=== PATIENT | male | born 1980 | race African-American/Black ===

== ENCOUNTER → 2020-05-28 12:44 | Outpatient (BNVA) | payer OTHER, SELFPAY | PROVIDERS: PCP Internal Medicine; Referring Provider Internal Medicine; Visit Provider Surgery | DX: Z76.89 Persons encountering health services in other specified circumstances (principal) ==

== ENCOUNTER → 2020-06-01 12:01 | Outpatient (BNVA) | payer OTHER, SELFPAY | PROVIDERS: PCP Internal Medicine; Referring Provider Internal Medicine; Visit Provider Physician Assistant | DX: Z76.89 Persons encountering health services in other specified circumstances (principal) ==

== ENCOUNTER 2020-06-02 14:56 | Outpatient (REF) | payer OTHER, SELFPAY ==
[2020-06-03 14:02] LABS: H Pylori Breath Test NOT DETECTED (NOT DETECTED)
== END 2020-06-02 14:57 | disposition home or self-care (01) ==
LOC: HO.LNP 14:56
PROVIDERS: Visit Provider Physician Assistant
DX: E66.01 Morbid (severe) obesity due to excess calories (principal)
CPT/HCPCS: 83013

== ENCOUNTER → 2020-06-12 08:19 | Outpatient (BNVA) | payer OTHER, SELFPAY | PROVIDERS: PCP Internal Medicine; Referring Provider Internal Medicine; Visit Provider Dietitian, Registered | DX: Z76.89 Persons encountering health services in other specified circumstances (principal) ==

== ENCOUNTER 2020-06-15 08:00 | Outpatient (REF) | payer OTHER, SELFPAY ==
--- NOTE | 2020-06-15 08:09 | US_ITS ---
EXAMINATION: US COMPLETE ABDOMEN WITH LIVER ELASTOGRAPHY CLINICAL INFORMATION: Morbid obesity due to excess calories. COMPARISON: None. TECHNIQUE: Real-time imaging of the abdominal viscera. Noninvasive ultrasound liver fibrosis assessment is performed using Kyler ElastPQ point quantification shear wave elastography (pSWE) with a 5 MHz transducer. Multiple elastography samples are obtained. FINDINGS: PANCREAS: Normal. The visualized pancreatic head and body are normal in appearance. The remainder of the pancreas is obscured from visualization by the overlying bowel gas. ABDOMINAL AORTA: The proximal, middle, and distal aortic segments are normal in caliber. INFERIOR VENA CAVA: Visualized portions are normal. LIVER: The liver demonstrates normal size and Contour with increased heterogeneous echogenicity. No focal lesion or intrahepatic biliary duct dilatation. The right lobe measures 18.7 cm in length. The left lobe measures 12.4 cm in length. Shear wave elastography provides a median stiffness of 1.38 m/s (reference: normal median stiffness is 0.81 - 1.22 m/s). The IQR/median stiffness to assess sampling precision is 0.23 (reference: optimal IQR/median stiffness is under 0.3). GALLBLADDER: Normal. The gallbladder is physiologically distended without evidence of stones, sludge, polyps, wall thickening or pericholecystic fluid. COMMON BILE DUCT: Normal in caliber measuring 0.3 cm in diameter. RIGHT KIDNEY: Normal. No hydronephrosis. No renal calculi or focal parenchymal lesions. The kidney measures 13.5 cm in maximum dimension. LEFT KIDNEY: Normal. No hydronephrosis. No renal calculi or focal parenchymal lesions. The kidney measures 12.9 cm in maximum dimension. SPLEEN: Normal. The spleen measures 9.6 cm in maximum dimension. FREE FLUID: None. US/US abdomen comp w elastography IMPRESSION: 1. Hepatic steatosis. 2. Elastography: Liver elastography measurements are consistent with a moderate risk for clinically significant liver fibrosis (METAVIR Stage F2-F3).
--- NOTE | 2020-06-15 08:39 | FL_ITS ---
EXAMINATION: XR FLUOROSCOPY UPPER GI WITH AIR CLINICAL INFORMATION: Morbid obesity due to excess calories COMPARISON: None TECHNIQUE: Fluoroscopic assessment of the upper GI tract was performed in various upright and supine/prone obliquities utilizing thin and thick high density barium contrast material and effervescent granules. FINDINGS: The esophagus was normal in course, caliber, and contour. There was normal distensibility with no fixed segment of narrowing. No focal mucosal abnormality was identified. No significant esophageal dysmotility was observed. Contrast passed freely across the gastroesophageal junction into the stomach. No significant hiatal hernia. There was normal distensibility of the stomach with no focal abnormality identified. There was prompt gastric emptying into the duodenum which demonstrated a normal appearance. No gastroesophageal reflux was observed. FLUOROSCOPY TIME: 1.5 minutes DOSE AREA PRODUCT: 44.840 Gy-cm2 (castañeda-centimeter squared) FL/FL upper GI series IMPRESSION: Normal upper GI examination.
--- NOTE | 2020-06-15 08:39 | XR_ITS ---
EXAMINATION: XR CHEST CLINICAL INFORMATION: Morbid obesity due to excess calories. COMPARISON: None TECHNIQUE: 2 views of the chest were obtained. FINDINGS: The lungs are well expanded. There is no focal consolidation, edema, or effusion. No pneumothorax. The cardiomediastinal silhouette is within normal limits. No acute osseous abnormality. XR/XR chest 2V IMPRESSION: No acute pulmonary findings.
== END 2020-06-15 08:01 | disposition home or self-care (01) ==
LOC: HO.US 08:00
PROVIDERS: PCP Internal Medicine; Visit Provider Surgery
DX: Z01.818 Encounter for other preprocedural examination (principal); E66.01 Morbid (severe) obesity due to excess calories; E66.9 Obesity, unspecified; K21.9 Gastro-esophageal reflux disease without esophagitis
CPT/HCPCS: 71046; 74240; 76705; 76981

== ENCOUNTER → 2020-06-17 08:11 | Outpatient (BNVA) | payer OTHER, SELFPAY | PROVIDERS: PCP Internal Medicine; Visit Provider Surgery | DX: Z76.89 Persons encountering health services in other specified circumstances (principal) ==

== ENCOUNTER → 2020-07-03 07:54 | Outpatient (BNVA) | payer OTHER, SELFPAY | PROVIDERS: PCP Internal Medicine; Referring Provider Internal Medicine; Visit Provider Dietitian, Registered | DX: Z76.89 Persons encountering health services in other specified circumstances (principal) ==

== ENCOUNTER → 2020-07-10 08:11 | Outpatient (BNVA) | payer OTHER, SELFPAY | PROVIDERS: PCP Internal Medicine; Referring Provider Internal Medicine; Visit Provider Surgery | DX: Z76.89 Persons encountering health services in other specified circumstances (principal) ==

== ENCOUNTER → 2020-07-13 08:36 | Outpatient (REF) | payer OTHER, SELFPAY ==
--- NOTE | 2020-07-13 08:39 | CA_ITS ---
Transthoracic Echocardiogram Patient (Last, First, Middle): Paulino Longoria Sr, Gender: Male Date of : 1980 Age: 39 Procedure Date: 07/13/2020 Procedure Type: Transthoracic Echocardiogram Location: OP Height: 180.34 cm Weight: 146.51 kg BSA: 2.59 m2 Heart Rate: bpm BP: 140 / 90 mmHg Timber Hewer: EMILIA Referring MD: David Real MD Symptoms: E66.01 - Morbid (severe) obesity due to excess calories Study Quality: Technically Difficult ECG Rhythm: Sinus Conclusions: - The left ventricular systolic function is normal. The visually estimated ejection fraction is between 55-60%. - No obvious valvular pathology seen on this study. Findings Procedure Information Contrast agent, definity, is being given per protocol without apparent complications. The patient receives contrast. Left Ventricle Normal left ventricular cavity size. There is normal left ventricular wall thickness. The left ventricular systolic function is normal. The visually estimated ejection fraction is between 55-60%. There is no evidence of regional wall motion abnormalities. Diastolic function is normal for age. Right Ventricle Normal right ventricular cavity size and systolic function. Atria The left atrium is normal in size. The right atrium is normal in size. Aortic Valve There is a normal trileaflet aortic valve. There is no aortic valve stenosis. There is no aortic valve regurgitation. Mitral Valve The mitral valve appears normal. There is no mitral valve regurgitation. There is no mitral valve stenosis. Pulmonic Valve The pulmonic valve was not well visualized. Tricuspid Valve Normal tricuspid valve structure. There is no tricuspid valve regurgitation. The pulmonary artery systolic pressure is normal. Great Vessels The aortic annulus, sinuses of valsalva, and asc aorta are normal in size. Venous The inferior vena cava is normal in size and collapses greater than 50% with inspiration. Pericardium/Pleural There is no evidence of pericardial effusion. Prior Study Comparison No prior study available for comparison. Recommendations, Care & Conclusions No obvious valvular pathology seen on this study. Measurements 2D Linear Measurements IVSd: 1.00 0.6-0.9/0.6-1.0 cm LVIDd: 5.62 3.9-5.3/4.2-5.9 cm LVIDd Index: 2.17 2.4-3.2/2.2-3.1 cm/m2 LVIDs: 3.96 2.0-3.6 cm LVPWd: 1.04 0.7-1.1 cm Ao Root: 3.70 2.1-3.5 cm LA Diam: 3.90 2.7-3.8/3.0-4.0 cm LAIDs Index: 1.51 1.5-2.3 cm/m2 LV Mass: 282.83 67-162/88-224 g LV Mass Index: 109.20 43-95/49-115 g/m2 LVOT Diam: 2.50 3.0+(-)1.3 cm 2D Systolic Function EF 4C: 57.40 >55% EF 2C: 59.00 >55% EF BiP: 58.40 >55% Mitral Valve MV Pk E: 0.81 MV PK A: 0.70 MV Decel Time: 197.00 E/A: 1.20 E'Lateral: 9.57 E'Medial: 6.64 E/E' Med: 12.20 E/E' Lat: 8.50 PHT: 58.00 MVA PHT: 3.79 Decel Hanson: 4.11 Aortic Valve AoV Pk Álvaro: 1.12 AoV Mn Álvaro: 0.72 AoV VTI: 0.22 AoV Pk Grad: 5.00 Aov Mn Grad: 2.00 JULIO CÉSAR Cont.VTI: 2.98 LVOT LVOT Pk Álvaro: 0.67 LVOT Mn Álvaro: 0.41 LVOT VTI: 0.13 LVOT Pk Grad: 2.00 LVOT Mn Grad: 1.00 LVOT Diam: 2.50 LVOT Area: 4.91 Diastolic Function MV Pk E: 0.81 MV Pk A: 0.70 E/A: 1.20 E'Medial: 6.64 E/E' Med: 12.20 E' Laterial: 9.57 E/E' Lat: 8.50 Tricuspid Valve TR Pk Álvaro: 1.68 TR Pk Grad: 11.00 RA Press: 3.00 RVSP: 14.00 Great Vessels Aorta Ao Root-2D: 3.70 2.0-3.7 cm Ao Asc: 3.50 2.1-3.4 cm Ao Arch: 2.90 Updated in Other Vendor System with Status of Final Jose Damian MD electronically signed on 07/13/2020 4:33:14 PM with status of Final
--- NOTE | 2020-07-13 08:39 | ECG_ITS ---
Test Reason : SOB Blood Pressure : / mmHG Vent. Rate : 079 BPM Atrial Rate : 079 BPM P-R Int : 150 ms QRS Dur : 082 ms QT Int : 380 ms P-R-T Axes : 024 050 -02 degrees QTc Int : 435 ms Normal sinus rhythm Normal ECG No previous ECGs available Referred By: David Real Electronically Signed By:Dayron Cook
[2020-07-13 10:24] LABS: MANUAL DIFF FLAG NO
[2020-07-13 10:45] LABS: Basophils Absolute Auto 0.1 X10*3/uL (0.0-0.2); Basophils Percent Auto 1.2 % (0-2); Eosinophils Absolute Auto 0.1 X10*3/uL (0.0-0.4); Eosinophils Percent Auto 1.6 % (0-4); Hemoglobin 12.7 g/dl (14.0-18.0); Imm Gran Abs Auto 0.03 X10*3/uL (0.00-0.03); Imm Gran Pct Auto 0.6 % (0.0-0.4); Lymphocytes Absolute Auto 1.7 X10*3/uL (1.2-4.9); Lymphocytes Percent Auto 35.3 % (20-40); Mean Corpuscular HGB Conc 29.5 g/dl (31.0-36.0); Mean Corpuscular Hemoglobin 22.8 pg (27.0-33.0); Mean Corpuscular Volume 77.3 fL (80-98); Mean Platelet Volume 11.8 fL (9.4-12.4); Monocytes Absolute Auto 0.3 X10*3/uL (0.1-1.2); Monocytes Percent Auto 6.7 % (2-11); Neutrophils Absolute Auto 2.7 X10*3/uL (2.0-8.3); Neutrophils Percent Auto 54.6 % (45-73); Platelet Count 306 X10*3/uL (160-400); Red Blood Count 5.56 X10*6/uL (4.60-5.80); Red Cell Distribution Width 13.1 % (11.0-16.0); White Blood Count 4.9 X10*3/uL (4.8-10.8)
[2020-07-13 10:48] LABS: Estimated Average Glucose 103 mg/dL; Hemoglobin A1C 112.4362 umol/L; Hemoglobin A1c % 5.2 %
[2020-07-13 11:09] LABS: Alanine Aminotransferase 26 U/L (0-40); Albumin Level 4.4 g/dL (3.5-5.0); Alkaline Phosphatase 56 U/L (39-117); Anion Gap 13 (12-20); Aspartate Amino Transferase 19 U/L (5-37); Bilirubin Total 0.6 mg/dL (0.0-1.0); Blood Urea Nitrogen 15 mg/dL (9-16); C Reactive Protein 0.63 mg/dL (< or = 0.50); Calcium 9.5 mg/dL (8.4-10.2); Carbon Dioxide 28 mmol/L (22-29); Chloride 104 mmol/L (96-108); Cholesterol 191 mg/dL; Estimated Glomerular Filt Rate > 60; Glucose Random 106 mg/dL (60-115); HDL Cholesterol 36 mg/dL; LDL Cholesterol Calculated 139 mg/dl; Potassium 4.5 mmol/l (3.3-5.1); Sodium 140 mmol/L (135-145); Total Protein 7.8 g/dL (6.5-8.0); Triglycerides 83 mg/dL
[2020-07-13 11:34] LABS: Ferritin 337 ng/mL (20-250); TSH reflex Free T4 0.85 mIU/mL (0.32-4.0)
[2020-07-13 11:47] LABS: Folate 9.1 ng/mL (> or = 4.0); Vitamin B12 375 pg/mL (200-900)
[2020-07-14 11:17] LABS: Insulin Level Total 17.7 uIU/mL
[2020-07-16 07:28] LABS: Zinc 70 mcg/dL (60-130)
[2020-07-18 02:42] LABS: Vitamin A 37 mcg/dL (38-98)
[2020-07-18 09:38] LABS: Vitamin B1 <6 nmol/L (8-30)
== END ==
LOC: HO.CARD 08:36
PROVIDERS: Visit Provider Surgery
DX: Z01.818 Encounter for other preprocedural examination (principal); E66.01 Morbid (severe) obesity due to excess calories; I10 Essential (primary) hypertension
CPT/HCPCS: 36415; 80053; 80061; 82607; 82728; 82746; 83036; 83525; 84425; 84443; 84590; 84630; 85025; 86140; 93005; 93306; Q9957

== ENCOUNTER → 2020-07-29 08:28 | Outpatient (BNVA) | payer OTHER, SELFPAY | PROVIDERS: PCP Internal Medicine; Visit Provider Surgery | DX: Z76.89 Persons encountering health services in other specified circumstances (principal) ==

== ENCOUNTER → 2020-08-19 08:09 | Outpatient (BNVA) | payer OTHER, SELFPAY | PROVIDERS: PCP Internal Medicine; Visit Provider Surgery ==

== ENCOUNTER → 2020-08-21 13:58 | Outpatient (BNVA) | payer OTHER, SELFPAY | PROVIDERS: PCP Internal Medicine; Visit Provider Physician Assistant ==

== ENCOUNTER → 2020-08-31 08:27 | Outpatient (BNVA) | payer OTHER, SELFPAY | PROVIDERS: PCP Internal Medicine; Visit Provider Surgery ==

== ENCOUNTER → 2020-09-04 14:11 | Outpatient (BNVA) | payer OTHER, SELFPAY | PROVIDERS: PCP Internal Medicine; Visit Provider Physician Assistant ==

== ENCOUNTER 2020-09-08 06:20 | Inpatient (IN) | payer OTHER, SELFPAY ==
[2020-09-02 14:02] LABS: MANUAL DIFF FLAG NO
[2020-09-02 14:15] LABS: Basophils Absolute Auto 0.1 X10*3/uL (0.0-0.2); Basophils Percent Auto 0.8 % (0-2); Eosinophils Absolute Auto 0.2 X10*3/uL (0.0-0.4); Eosinophils Percent Auto 1.8 % (0-4); Hematocrit 43.5 % (42-52); Hemoglobin 13.2 g/dl (14.0-18.0); Imm Gran Abs Auto 0.03 X10*3/uL (0.00-0.03); Imm Gran Pct Auto 0.3 % (0.0-0.4); Lymphocytes Absolute Auto 2.8 X10*3/uL (1.2-4.9); Lymphocytes Percent Auto 31.1 % (20-40); Mean Corpuscular HGB Conc 30.3 g/dl (31.0-36.0); Mean Corpuscular Volume 75.9 fL (80-98); Mean Platelet Volume 11.7 fL (9.4-12.4); Monocytes Absolute Auto 0.5 X10*3/uL (0.1-1.2); Monocytes Percent Auto 5.4 % (2-11); Neutrophils Absolute Auto 5.4 X10*3/uL (2.0-8.3); Neutrophils Percent Auto 60.6 % (45-73); Platelet Count 369 X10*3/uL (160-400); Red Blood Count 5.73 X10*6/uL (4.60-5.80); Red Cell Distribution Width 13.2 % (11.0-16.0); White Blood Count 8.9 X10*3/uL (4.8-10.8)
[2020-09-02 14:17] LABS: INTERNATIONAL NORM RATIO 1.1 (0.9-1.1); Prothrombin Time 13.5 SEC (10.8-13.0)
[2020-09-02 14:20] LABS: Partial Thromboplastin Time 36.7 SEC (24.1-38.0)
[2020-09-02 14:21] LABS: Estimated Average Glucose 91 mg/dL; Hemoglobin A1c % 4.8 %
[2020-09-02 14:47] LABS: Alanine Aminotransferase 23 U/L (0-40); Albumin Level 4.6 g/dL (3.5-5.0); Alkaline Phosphatase 61 U/L (39-117); Anion Gap 13 (12-20); Aspartate Amino Transferase 18 U/L (5-37); Bilirubin Total 0.8 mg/dL (0.0-1.0); Blood Urea Nitrogen 16 mg/dL (9-16); C Reactive Protein 0.61 mg/dL (< or = 0.50); Calcium 10.1 mg/dL (8.4-10.2); Carbon Dioxide 30 mmol/L (22-29); Chloride 101 mmol/L (96-108); Cholesterol 182 mg/dL; Estimated Glomerular Filt Rate > 60; Glucose Random 97 mg/dL (60-115); HDL Cholesterol 35 mg/dL; LDL Cholesterol Calculated 130 mg/dl; Potassium 4.4 mmol/L (3.3-5.1); Sodium 140 mmol/L (135-145); Total Protein 7.9 g/dL (6.5-8.0); Triglycerides 86 mg/dL
[2020-09-03 09:57] LABS: Insulin Level Total 12.5 uIU/mL
[2020-09-03 10:44] VITALS: BMI 42.9
--- NOTE | 2020-09-04 12:16 | P.CONAN_ITS ---
Documented by User: Susanne Valentine 09/04/20 12:19 HPI - Anesthesia Eval Consult details Narrative: 39yo M for Gastrectomy Sleeve PMFSH Past Medical History Medical History COVID-19 vaccine administered Family history of sickle cell trait Hyperlipidemia Hypertension Sleep apnea with use of continuous positive airway pressure (CPAP) Vitamin A deficiency Family History Family History Mother Hypertension Father Hypertension Brother No problems noted. Brother No problems noted. Brother No problems noted. Son No problems noted. Son No problems noted. Son No problems noted. Surgical History Surgical History Hx of wisdom tooth extraction Morbid obesity Social History Social History Are you a primary in home caregiver to a significant other at home: No Do you presently have visiting nurse or other home services: No Alcohol intake: former Smoking Status: Never smoker Use of substances other than those prescribed or required for medical reasons: Yes Substance Use Type Other:: marijuana edibles occasionally in past-not currently using Substance Use Frequency: Occasionally Have you been hit, kicked, punched, or otherwise hurt by someone within the past year? If so, by whom?: No Advance Directives Information Provided: No Recently lost weight without trying: No Meds Allergies Allergy/AdvReac Type Severity Reaction Status Date / Time No Known Allergies Allergy Verified 08/31/20 14:02 Home Medications Medication Instructions Recorded Confirmed Type amlodipine 10 mg tablet 10 mg PO DAILY 05/28/20 09/03/20 History hydrochlorothiazide 25 mg tablet 25 mg PO DAILY 05/28/20 09/03/20 History pravastatin 80 mg PO DAILY 09/03/20 09/08/20 History ondansetron HCl [Zofran] 4 mg PO DAILY PRN 09/08/20 09/08/20 History Exam Exam Date and Time: September 04, 2020 1216 Height,Weight and Vital Signs: Height 5 ft 11 in Weight 139.706 kg Pertinent Lab Results Pertinent Lab Results: Laboratory Tests 09/02/20 09/02/20 09/02/20 13:25 13:25 13:25 WBC 8.9 RBC 5.73 Hgb 13.2 L Hct 43.5 MCV 75.9 L MCH 23.0 L MCHC 30.3 L RDW 13.2 Plt Count 369 MPV 11.7 Immature Gran % (Auto) 0.3 Neut % (Auto) 60.6 Lymph % (Auto) 31.1 [place] % (Auto) 5.4 Eos % (Auto) 1.8 Baso % (Auto) 0.8 Lymph # (Auto) 2.8 [place] # (Auto) 0.5 Eos # (Auto) 0.2 Baso # (Auto) 0.1 Abs Immat Gran (auto) 0.03 Absolute Neuts (auto) 5.4 Absolute Nucleated RBC 0.000 Nucleated RBC % (auto) 0.0 PT 13.5 H INR 1.1 APTT 36.7 Sodium 140 Potassium 4.4 Chloride 101 Carbon Dioxide 30 H Anion Gap 13 BUN 16 Creatinine 1.11 Estim Creat Clear Calc TNP Estimated GFR > 60 Random Glucose 97 Estimat Average Glucose Hemoglobin A1c % Total Insulin Calcium 10.1 D Total Bilirubin 0.8 AST 18 ALT 23 Alkaline Phosphatase 61 C-Reactive Protein 0.61 H Total Protein 7.9 Albumin 4.6 Triglycerides 86 Cholesterol 182 LDL Cholesterol, Calc 130 HDL Cholesterol 35 TSH 0.70 Blood Type Antibody Screen 09/02/20 09/02/20 09/02/20 13:25 13:25 13:25 WBC RBC Hgb Hct MCV MCH MCHC RDW Plt Count MPV Immature Gran % (Auto) Neut % (Auto) Lymph % (Auto) [place] % (Auto) Eos % (Auto) Baso % (Auto) Lymph # (Auto) [place] # (Auto) Eos # (Auto) Baso # (Auto) Abs Immat Gran (auto) Absolute Neuts (auto) Absolute Nucleated RBC Nucleated RBC % (auto) PT INR APTT Sodium Potassium Chloride Carbon Dioxide Anion Gap BUN Creatinine Estim Creat Clear Calc Estimated GFR Random Glucose Estimat Average Glucose 91 Hemoglobin A1c % 4.8 Total Insulin 12.5 Calcium Total Bilirubin AST ALT Alkaline Phosphatase C-Reactive Protein Total Protein Albumin Triglycerides Cholesterol LDL Cholesterol, Calc HDL Cholesterol TSH Blood Type O Positive Antibody Screen NEGATIVE Narrative Narrative: EKG 06/2020 Normal sinus rhythm Normal ECG No previous ECGs available CXR 04/2020 No acute pulmonary findings ECHO 06/2020 Conclusions: - The left ventricular systolic function is normal. The visually estimated ejection fraction is between 55-60%. - No obvious valvular pathology seen on this study. Assessment and Plan Assessment Anesthesia Assessment: Chart Reviewed Documented by User: Jh Fagan 09/08/20 08:19 PENDING SALE TO [facility] Past Medical History Medical History COVID-19 vaccine administered Family history of sickle cell trait Hyperlipidemia Hypertension Sleep apnea with use of continuous positive airway pressure (CPAP) Vitamin A deficiency Family History Family History Mother Hypertension Father Hypertension Brother No problems noted. Brother No problems noted. Brother No problems noted. Son No problems noted. Son No problems noted. Son No problems noted. Surgical History Surgical History Hx of wisdom tooth extraction Morbid obesity Social History Social History Are you a primary in home caregiver to a significant other at home: No Do you presently have visiting nurse or other home services: No Alcohol intake: former Smoking Status: Never smoker Use of substances other than those prescribed or required for medical reasons: Yes Substance Use Type Other:: marijuana edibles occasionally in past-not currently using Substance Use Frequency: Occasionally Have you been hit, kicked, punched, or otherwise hurt by someone within the past year? If so, by whom?: No Advance Directives Information Provided: No Recently lost weight without trying: No Meds Allergies Allergy/AdvReac Type Severity Reaction Status Date / Time No Known Allergies Allergy Verified 08/31/20 14:02 Home Medications Medication Instructions Recorded Confirmed Type amlodipine 10 mg tablet 10 mg PO DAILY 05/28/20 09/03/20 History hydrochlorothiazide 25 mg tablet 25 mg PO DAILY 05/28/20 09/03/20 History pravastatin 80 mg PO DAILY 09/03/20 09/08/20 History ondansetron HCl [Zofran] 4 mg PO DAILY PRN 09/08/20 09/08/20 History Exam Airway Mallampati Class: III TM Dist: >3cm Neck ROM: Full Loose/Missing/Broken Teeth: No Heart: rrr+[id number] Lungs: cta b/l Assessment and Plan Assessment Anesthesia Assessment: Anesthesia Plan Discussed and Chart Reviewed Final Anesthetic Review NPO: Yes ASA Class: II Final Preanesthetic Review: No Changes in Pt Med Stat, Meds/Allgs Chart Reviewed, Consent Obtained/Reviewed and Anes Risks/Benef Reviewed Patient Risk: Intermediate Procedure Risk: Low Assessment/Block/Sedation in SS: Assess/Block/Sedation-SS Anesthetic Plan Anesthetic Plan: GA and Regional Block Disposition: Standard PACU
--- NOTE | 2020-09-07 19:26 | MHC.SHP ---
Pre-Procedural Eval Section A The patient is an INPATIENT: Yes The History & Physical has been completed within 30 days and I have reviewed it.: Yes Section B Chief Complaint: obesity Details of Present Illness: morbid obesity Relevant Family History (Specify if Yes): No Relevant Social History: None Present Medications: see Short Stay Collaborative assessment Medical History: No relevant PMH History of Previous Operations: No relevant previous surgery Allergies: Allergies Allergy/AdvReac Type Severity Reaction Status Date / Time No Known Allergies Allergy Verified 08/31/20 14:02 Review of Systems Sugical H&P ROS: Negative: Constitution, Cardiovascular, Respiratory, Neurological, Psychiatric, Hem-Onc, Allergic/Immunologic, Gastrointestinal, Genitourinary, Musculoskeletal, Integumentary, Endocrine and Eyes/Ears/Nose/Throat Exam Surgical H&P Exam: Normal: HEENT, Normal: Heart, Normal: Lungs, Normal: Extremities, Normal: Abdomen, Normal: Skin and Normal: Neurological Plan Diagnosis/Plan: Unchanged I have reviewed the history and physical and performed a pertinent physical examination on my patient. No changes have occurred unless specified.
[2020-09-08] VITALS (19 sets, daily range): BP systolic 132–171; BP diastolic 49–91; PULSE 76–104; RESP 13–21; TEMP 36.4–36.9; O2SAT 95–100
[2020-09-08 07:00] LABS: COVID-19 Test Negative (Negative)
--- NOTE | 2020-09-08 10:52 | P.BOP_ITS ---
Brief Operative Note Date of Service: 09/08/20 Pre-op diagnosis: Morbid obesity and comorbidities (see below) Post-op diagnosis: same (diaphragmatic hernia and adhesions) Procedure: INITIAL PATIENT BMI ON PRESENTATION AT OUR OFFICE: 48.8 kg/m2 LAST BMI BEFORE SURGERY: 42 kg/m2 COMORBIDITIES: sleep apnea, hypertension, hyperlipidemia, liver steatosis, liver fibrosis The patient participated in an intensive weekly lifestyle intervention and exercise program during which the patient has lost between the initial office visit and the last preoperative visit 42lbs, or 12% of initial actual body weight. The patient met the BMI-criteria for bariatric surgery based on the BMI on initial presentation. The patient should not be penalized for achieving such weight loss because it is not sustainable long-term without surgical intervention and it was achieved in preparation for bariatric surgery under my direction and based on my published research ([email or web address] and [email or web address]) that a 10% preoperative weight loss improves long-term weight loss after surgery and reduces perioperative complications. Insurance carriers such as [facility] have endo rsed my recommendations and have included in their policies criteria to include a 10% preoperative weight loss requirement. PROCEDURE: Esophago-gastroscopy, laparoscopic repair of incarcerated diaph ragmatic hernia, laparoscopic lysis of adhesions, laparoscopic sleeve gastrectomy and laparoscopic gastropexy INDICATIONS: This is a 39 year-old male who was electively scheduled for laparoscopic, possibly open sleeve gastrectomy. The risks and complications of the procedure were discussed with the patient in advance, particularly the possibility of ; pulmonary embolism; staple line leak; bleeding; GERD; cardiac, pulmonary, or renal complications; as well as long-term problems such as insufficient weight loss, vitamin deficiency, strictures, or ulcers. The patient understood all the risks, and was in agreement to proceed with surgery. DESCRIPTION OF PROCEDURE: After informed consent was obtained from the patient, the patient was given preoperative antibiotics, and was transferred to the operating room. After successful induction of general anesthesia, pneumatic compressive devices were placed on both lower extremities. An upper endoscopy was performed next. The oropharynx and esophagus appeared to be within normal limits. There was a diaphragmatic hernia present of moderate size that was not reported at the preoperative upper GI. The stomach was entered. Then after all fluid and air were suctioned and the stomach was fully decompressed, the scope was withdrawn and secured in the mid esophagus. The patient was then prepped and draped in the usual sterile manner, and abd ominal access was established at the right upper quadrant with the Hanny technique. A 12 mm blunt port was inserted, and the abdomen was insufflated with CO2 to a pressure of 15 mmHg. Under direct visualization, additional ports were placed, specifically two 5 mm Versi-step ports to the left upper quadrant, and a 5 mm Versi-Step port to the right upper quadrant. 1% lidocained plan was used to infiltrate all port sites as well as all fascia defects. Using the EndoClose suture passer device, we placed a #1 Polysorb tie across the falciform ligament in order to retract it up against the abdominal wall and prevent injury of the ligament with our instruments during the procedure. Following that, the patient was placed in a steep reverse Trendelenburg position. An additional 5 mm port was placed to the right flank for the Mediflex retractor that was used to retract the left lobe of the liver. The gastro-esophageal fat pad was opened with the ultrasonic device (Thunderbeat, Olympus) and the anterior esophagus and hiatus were exposed. The angle of His was opened with the ultrasonic device the fundus of the stomach from any diaphragmatic and splenic attachments. I then opened the gastrocolic ligament between the transverse colon and the greater curvature of the stomach with the ultrasonic device to enter the lesser sac and facilitate the ligation of the short gastric vessels. I started at a mid-point along the greater curvature and using the Thunderbeat, all short gastric vessels were divided all the way to the angle of His until the left jamia was completely dissected at its entirety. I then divided the gastro-colic ligament distally to a distance of about 3-4 cm proximal to the esophagus. There were extensive congenital adhesions between the pancreas and posterior gastric wall. Those were lysed completely with the ultrasonic device. Adhesiolysis took approximately 45 min to complete and prolonged the operation significantly with a total operative time of 2 hours and 40 minutes. There was an obvious significant-sized hiatal hernia. I continued dissecting along the hiatus toward the left jamia and the angle of His. I fully mobilized the fat pad that was incarcerated in the hernia. I then continued by dissecting even further into the posterior retro-esophageal space all the way to the angle of His. I continued to mobilize the esophagus into the mediastinum circumferentially. Both vagal nerves were seen and preserved. The right jamia was also dissected completely. At that point, I was able to have at least 3 to 5 cm of esophagus into the abdomen. After I completely mobilized the esophagus from both the left and right jamia and I had a good mobilization of the esophagus circumferentially, I closed the hernia defect with three interrupted #0 Surgidac sutures using the Endo Stitch device, two of which were placed posterior and one anterior to the esophagus. The stomach was then divided transversely with one Endo TIA-45 purple, three TIA-60 articulating purple loads and three TIA-60 orange loads using the AEON stapler and loads. Every effort was made that the gastric sleeve had a tubular shape and an even caliber throughout. Once the sleeve resection was completed, the staple line of the gastric sleeve was reinforced with Hemoclips. The stomach was extremely thick and large and the staple line near the pylorus was reinforced with four interrupted 3.0 Polysorb sutures. The resected stomach was retrieved without difficulty from the Hanny port. A gastropexy was then performed in order to prevent postoperative GERD and partial gastric volvulus. Several interrupted 3.0 Surgidac sutures were placed between the sleeve's staple line and the previously divided greater omentum and gastro-colic ligament using the Endo-Stitch device. An upper endoscopy was performed. There was no narrowing at the GE junction. The scope was easily advanced all the way to the pylorus which was clearly visualized. There was no narrowing anywhere and the sleeve's caliber was even throughout. The sleeve's staple line was inspected and there was no evidence of ischemia, bleeding or dehiscence. At that point the gastroscope was withdrawn from the patient?s mouth while we were decompressing the bowel and the stomach from any remaining air. I looked into the lesser sac to see how the sleeve was situating and it was situating well. There was no bleeding from the staple line, spleen, or short gastric vessels. The Mediflex retractor was removed, and the undersurface of the liver was inspected and there was no bleeding. The patient was placed in supine position. I closed the fascial defect of the 12 mm port site with a figure of eight #1 Polysorb suture. Then 100 cc 0.25 % Marcaine plain with 10 mg of Dexamethasone were used to infiltrate the fascial closure as well as all skin incisions. At this point, the abdomen was deflated, all ports were removed under direct vision, and no bleeding was noted from any of the port sites. The skin incisions were irrigated with saline and were closed with 4-0 absorbable monofilament sutures. Steri-Strips and OpSites were used to cover all incisions. The patient was extubated and was transferred in stable condition to the recovery room for further care. I was present and performed all ho parts of the procedure. Ms. Alejandre was the fitness assistant. There were no residents to assist with this case. Jeff Real MD, PhD, FACS Surgeon: David Real MD Anesthesia: GETA, local and other (TAP block) Load Blocker: Celsa Alejandre Estimated blood loss (mL): 10 IV fluids (mL): 1,600 Urine output (mL): 0 (No Garcia to record) Pathology: other (stomach) Condition: stable Disposition: PACU
--- NOTE | 2020-09-08 10:58 | PM.DS ---
DS: Providers Provider Date of Service: 09/09/20 Date of admission: 09/08/20 06:20 Primary care physician: Clemente Naidu MD DS: Medications Discharge Medications Home Medications: Home Medications Medication Instructions Recorded Confirmed amlodipine 10 mg tablet 10 mg PO DAILY 05/28/20 09/03/20 hydrochlorothiazide 25 mg tablet 25 mg PO DAILY 05/28/20 09/03/20 pravastatin 80 mg PO DAILY 09/03/20 09/08/20 ondansetron HCl [Zofran] 4 mg PO DAILY PRN 09/08/20 09/08/20 Previous Rx's Medication Instructions Recorded mecobalamin (vitamin B12) 1,000 1,000 mcg SUBLINGUAL DAILY #30 tab 07/29/20 mcg disintegrating tablet,sublingual thiamine HCl (vitamin B1) 100 mg 100 mg PO DAILY #30 tab 07/29/20 tablet vitamin A palmitate 15,000 unit 15,000 unit PO .COMPLEX #30 tab 07/29/20 tablet pantoprazole 40 mg tablet,delayed 40 mg PO DAILY #30 tab 08/31/20 release polyethylene glycol 3350 17 gram 17 g PO DAILY #14 ea 08/31/20 oral powder packet sucralfate 100 mg/mL oral 10 ml PO BID #420 ml 08/31/20 suspension DS: Summary Time Spent with Patient Time attestation: ADMITTING DIAGNOSIS: morbid obesity, GERD, hiatal hernia, hypertension, sleep apnea and hyperlipidemia DISCHARGE DIAGNOSIS: same, s/p laparoscopic sleeve gastrectomy and repair of hiatal hernia PAST SURGICAL HISTORY: none PROCEDURE: upper endoscopy, laparoscopic sleeve gastrectomy with gastropexy and repair of hiatal hernia DISCHARGE SUMMARY: History of Present Illness: The patient is a 39 year-old man with a BMI of 49 kg/m2 and associated co-morbidities as described above. The patient had extensive work-up,lost 42 lbs preoperatively and was electively scheduled for laparoscopic, possible open sleeve gastrectomy and gastropexy. Risks and complications of the surgery were discussed with the patient in advance, particularly the possibility of , pulmonary embolism, anastomotic leak, bleeding, bowel injury, GERD, cardiac, renal or pulmonary complications. The patient understood all the risks and was in agreement with the surgical plan. Hospital Course: The patient underwent an uneventful laparoscopic sleeve gastrectomy with gastropexy and repair of hiatal hernia the day of admission. Postoperatively, the patient was transferred to the surgical floor. The patient was on IV Acetaminophen and IV dilaudid for pain control. Patient was started on bariatric phase 1 diet POD #0. On postoperative day one, the patient was feeling well without nausea, vomiting, fevers, or tachycardia. The patient had some mild incisional pain. The abdomen was soft. On the morning of postoperative day one, the patient was continued on 1 ounce of water or ice every half hour. During the first day, the patient did fairly well, having some incisional pain, but able to ambulate adequately and to tolerate liquids well. Since the patient is doing well, we decided that the patient was ready to be discharged. The patient was given instructions to follow-up with me next week and to call my office for any fever over 101, persistent abdominal pain, nausea, vomiting, GERD, symptoms of DVT such as calf tenderness, or leg swelling, or pulmonary embolism such as chest pain or shortness of breath. The patient was also instructed to drink 40-60 ounces of liquids per day using the 1-ounce cups. The patient was given prescription for Tylenol for pain, Zofran prn for nausea, and pantoprazole and carafate. The patient was encouraged to ambulate and use the incentive spirometer. The patient was allowed to shower, but no baths, and encouraged to stay active at home. All of these instructions were given to the patient personally. All questions were answered and the patient understood all instructions, the instructions were also given to the patient in print. Total time spent providing and/or coordinating discharge services: Discharge coordination time: Greater than 30 minutes Physical Exam Vital Signs: Vital Signs: Last Vital Signs Temp 98 F 09/08/20 06:46 Pulse 80 09/08/20 06:46 Resp 16 09/08/20 06:46 BP 143/88 H 09/08/20 06:46 Pulse Ox 97 09/08/20 06:46 Body Mass Index 42.9 DS: Data Data Completed and Pending Pending studies at discharge: Pending at discharge 09/08/20 08:27 Surgical [PTH] Routine Labs on day of discharge: Laboratory Tests 09/02/20 09/02/20 09/02/20 13:25 13:25 13:25 WBC 8.9 RBC 5.73 Hgb 13.2 L Hct 43.5 MCV 75.9 L MCH 23.0 L MCHC 30.3 L RDW 13.2 Plt Count 369 MPV 11.7 Immature Gran % (Auto) 0.3 Neut % (Auto) 60.6 Lymph % (Auto) 31.1 [place] % (Auto) 5.4 Eos % (Auto) 1.8 Baso % (Auto) 0.8 Lymph # (Auto) 2.8 [place] # (Auto) 0.5 Eos # (Auto) 0.2 Baso # (Auto) 0.1 Abs Immat Gran (auto) 0.03 Absolute Neuts (auto) 5.4 Absolute Nucleated RBC 0.000 Nucleated RBC % (auto) 0.0 PT 13.5 H INR 1.1 APTT 36.7 Sodium 140 Potassium 4.4 Chloride 101 Carbon Dioxide 30 H Anion Gap 13 BUN 16 Creatinine 1.11 Estim Creat Clear Calc TNP Estimated GFR > 60 Random Glucose 97 Estimat Average Glucose Hemoglobin A1c % Total Insulin Calcium 10.1 D Total Bilirubin 0.8 AST 18 ALT 23 Alkaline Phosphatase 61 C-Reactive Protein 0.61 H Total Protein 7.9 Albumin 4.6 Triglycerides 86 Cholesterol 182 LDL Cholesterol, Calc 130 HDL Cholesterol 35 TSH 0.70 COVID-19 ([facility]) COVID-19 [employer] Blood Type Antibody Screen 09/02/20 09/02/20 09/02/20 13:25 13:25 13:25 WBC RBC Hgb Hct MCV MCH MCHC RDW Plt Count MPV Immature Gran % (Auto) Neut % (Auto) Lymph % (Auto) [place] % (Auto) Eos % (Auto) Baso % (Auto) Lymph # (Auto) [place] # (Auto) Eos # (Auto) Baso # (Auto) Abs Immat Gran (auto) Absolute Neuts (auto) Absolute Nucleated RBC Nucleated RBC % (auto) PT INR APTT Sodium Potassium Chloride Carbon Dioxide Anion Gap BUN Creatinine Estim Creat Clear Calc Estimated GFR Random Glucose Estimat Average Glucose 91 Hemoglobin A1c % 4.8 Total Insulin 12.5 Calcium Total Bilirubin AST ALT Alkaline Phosphatase C-Reactive Protein Total Protein Albumin Triglycerides Cholesterol LDL Cholesterol, Calc HDL Cholesterol TSH COVID-19 ([facility]) COVID-19 [employer] Blood Type O Positive Antibody Screen NEGATIVE 09/08/20 06:30 WBC RBC Hgb Hct MCV MCH MCHC RDW Plt Count MPV Immature Gran % (Auto) Neut % (Auto) Lymph % (Auto) [place] % (Auto) Eos % (Auto) Baso % (Auto) Lymph # (Auto) [place] # (Auto) Eos # (Auto) Baso # (Auto) Abs Immat Gran (auto) Absolute Neuts (auto) Absolute Nucleated RBC Nucleated RBC % (auto) PT INR APTT Sodium Potassium Chloride Carbon Dioxide Anion Gap BUN Creatinine Estim Creat Clear Calc Estimated GFR Random Glucose Estimat Average Glucose Hemoglobin A1c % Total Insulin Calcium Total Bilirubin AST ALT Alkaline Phosphatase C-Reactive Protein Total Protein Albumin Triglycerides Cholesterol LDL Cholesterol, Calc HDL Cholesterol TSH COVID-19 ([facility]) Negative COVID-19 Clin Com See Note Blood Type Antibody Screen Discharge Plan Discharge Anticipated Discharge Date/Time: 09/09/20 11:55 Patient Disposition: Home, Self-Care Referrals: Clemente Naidu MD [Primary Care Provider] - Discharge Medications: Continued pravastatin 40 mg tablet 80 mg PO DAILY RF: 0 ondansetron HCl [Zofran] 4 mg tablet 4 mg PO DAILY PRN (Reason: Nausea And Vomiting) RF: 0 pantoprazole 40 mg tablet,delayed release (DR/EC) 40 mg PO DAILY Qty: 30 RF: 2 sucralfate 100 mg/mL suspension 10 ml PO BID Qty: 420 RF: 2 hydrochlorothiazide 25 mg tablet 25 mg PO DAILY RF: 0 Hold Instructions: Dr Real will tell you when to restart this medication. amlodipine 10 mg tablet 10 mg PO DAILY RF: 0 Discontinued polyethylene glycol 3350 [Miralax] 17 gram powder in packet 17 g PO DAILY Qty: 14 RF: 0 thiamine HCl (vitamin B1) 100 mg tablet 100 mg PO DAILY Qty: 30 RF: 2 vitamin A palmitate 15,000 unit tablet 15,000 unit PO .COMPLEX Qty: 30 RF: 0 mecobalamin (vitamin B12) 1,000 mcg tablet,disintegrating 1,000 mcg sublingual DAILY Qty: 30 RF: 2 Discharge Orders: Discharge Order (Routine); Ordered 09/09/20 Ordered By: David Real Diet: other Activity on Discharge: No heavy lifting Stand Alone Forms: Patient Portal Discharge page Activity Restrictions/Additional Instructions: No tub baths, sex or returning to work until discussed at first post op appointment. No exercise, alcohol, tobacco or illegal drug use. Continue to use incentive spirometer hourly while awake. Walk in home for 5- 10 minutes every 2 hours during the first week. Continue phase 1 diet today and start phase 2 diet tomorrow morning. Follow all instructions in the bariatric handbook and call with any questions. Visit Report Forms: Patient Portal Discharge page Care Plan Goals: weight loss Health Concerns: morbid obesity Plan of Treatment: see discharge instructions Discharge Date/Time: 09/09/20 09:39
--- NOTE | 2020-09-08 11:00 | PM.PNGS ---
Subjective Subjective Date of Service: 09/09/20 Interval history: Patient has mild incisional pain. Was able to ambulate and use the incentive spirometer. Physical Exam Vital Signs: Vital Signs: Last Vital Signs Temp 98.4 F 09/08/20 10:45 Pulse 77 09/08/20 10:45 Resp 16 09/08/20 10:45 BP 144/79 H 09/08/20 10:45 Pulse Ox 99 09/08/20 10:45 Body Mass Index 42.9 GI: Inspection: Yes normal to inspection, Yes incision (dry, clean and intact) and Yes obesity Extrem: Right lower extremity: normal to inspection (no calf tenderness) Left lower extremity: normal to inspection (no calf tenderness) Progress Note: A&P Assessment and plan (1) Morbid obesity: Status: Acute (2) Sleep apnea with use of continuous positive airway pressure (CPAP): Status: Acute (3) Hypertension: Status: Acute (4) GERD (gastroesophageal reflux disease): Status: Acute (5) Hyperlipidemia: Status: Acute (6) Diaphragmatic hernia: Status: Acute (7) Congenital intra-abdominal adhesions: Status: Acute (8) Steatosis, liver: Status: Acute (9) Liver fibrosis: Status: Acute (10) S/P laparoscopic sleeve gastrectomy: Status: Acute Assessment and Plan: 39 year old Male was admitted 09/08/2020 with morbid obesity and comorbidities. Problem 1: s/p laparoscopic sleeve gastrectomy, , diaphragmatic hernia repair, gastropexy and lysis of adhesions Status: Doing well Plan: Check am labs, If OK, will continue phase 1 bariatric diet and discharge later today. (11) S/P repair of paraesophageal hernia: Status: Acute Fall Risk Details Current Medications: Current Medications Generic Name Dose Route Start Last Admin Trade Name Freq PRN Reason Stop Dose Admin Fentanyl 50 mcg 09/08/20 08:19 Fentanyl Citrate/Pf 100 Mcg/2 Ml Vial IVPUSH Q5M PRN Pain, Moderate (Pain Scale 4-6 Hydromorphone HCl 0.5 mg 09/08/20 08:19 Hydromorphone Hcl 0.5 Mg/0.5 Ml Syringe IVPUSH Q5M PRN Pain, Severe (Pain Scale 7-10) Lactated Ringer's 1,000 mls @ 100 mls/hr 09/08/20 06:30 Lr IVCONT .Q10H HONEY Promethazine HCl 12.5 mg/ 50.5 mls @ 202 mls/hr 09/08/20 08:19 Sodium Chloride IV ONCE PRN Nausea and Vomiting Ondansetron HCl 4 mg 09/08/20 08:19 Ondansetron Hcl 4 Mg/2 Ml Vial IVPUSH ONCE PRN Nausea and Vomiting Oxycodone HCl 10 mg 09/08/20 08:19 Oxycodone Hcl Immed Release 5 Mg Tablet PO ONCE PRN Pain, Mild (Pain Scale 1-3) Time Spent With Patient Time: Total time spent is greater than 50% in coordination of care (as documented) at patient's floor/unit and/or counseling patient: Time with patient: less than 15 minutes
[2020-09-08] MEDS: ondansetron HCL 4 MG/2 ML VIAL IVPUSH ×2 (11:01→20:54)
[2020-09-08] MEDS: HYDROmorphone HCl 0.5 MG/0.5 ML SYRINGE IVPUSH (11:12)
[2020-09-08 11:51] LABS: Hematocrit 43.3 % (42-52); Hemoglobin 13.2 g/dl (14.0-18.0)
[2020-09-08 12:26] LABS: Anion Gap 14 (12-20); Blood Urea Nitrogen 11 mg/dL (9-16); Carbon Dioxide 27 mmol/L (22-29); Chloride 100 mmol/L (96-108); Creatinine Clr Calc Pharmacy 110.9; Estimated Glomerular Filt Rate > 60; Glucose Random 135 mg/dL (60-115); Potassium 4.4 mmol/L (3.3-5.1); Sodium 137 mmol/L (135-145)
[2020-09-08] MEDS: amLODIPine Besylate 10 MG TABLET PO (14:05)
[2020-09-08] MEDS: Famotidine/PF 20 MG/2 ML VIAL IVPUSH ×2 (14:06→20:54)
[2020-09-08] MEDS: Lactated Ringers 1,000 ML 125 ML IVCONT ×2 (14:13→22:30)
[2020-09-08] MEDS: ceFAZolin Sodium/Dextrose,Iso 2 GM/50 ML PIGGYBACK IV (14:14)
[2020-09-08] MEDS: hydrALAZINE HCl 20 MG/ML VIAL 10 MG IVPUSH (16:08)
[2020-09-08] MEDS: 0.9 % Sodium Chloride Flush 3 ML SYRINGE IVFLUSH (20:58)
[2020-09-09 04:00] VITALS: BP 147/80; PULSE 98; RESP 18; TEMP 36.8; O2SAT 98
[2020-09-09 04:54] LABS: MANUAL DIFF FLAG NO
[2020-09-09 04:57] LABS: Basophils Percent Auto 0.1 % (0-2); Hemoglobin 11.9 g/dl (14.0-18.0); Imm Gran Abs Auto 0.03 X10*3/uL (0.00-0.03); Imm Gran Pct Auto 0.3 % (0.0-0.4); Lymphocytes Absolute Auto 1.5 X10*3/uL (1.2-4.9); Lymphocytes Percent Auto 13.2 % (20-40); Mean Corpuscular HGB Conc 31.3 g/dl (31.0-36.0); Mean Corpuscular Hemoglobin 23.4 pg (27.0-33.0); Mean Corpuscular Volume 74.8 fL (80-98); Monocytes Absolute Auto 0.5 X10*3/uL (0.1-1.2); Monocytes Percent Auto 4.6 % (2-11); Neutrophils Absolute Auto 9.5 X10*3/uL (2.0-8.3); Neutrophils Percent Auto 81.8 % (45-73); Platelet Count 303 X10*3/uL (160-400); Red Blood Count 5.08 X10*6/uL (4.60-5.80); Red Cell Distribution Width 13.1 % (11.0-16.0); White Blood Count 11.6 X10*3/uL (4.8-10.8)
[2020-09-09 05:24] LABS: Anion Gap 13 (12-20); Blood Urea Nitrogen 8 mg/dL (9-16); Calcium 8.5 mg/dL (8.4-10.2); Carbon Dioxide 25 mmol/L (22-29); Chloride 102 mmol/L (96-108); Estimated Glomerular Filt Rate > 60; Glucose Random 102 mg/dL (60-115); Potassium 4.2 mmol/L (3.3-5.1); Sodium 136 mmol/L (135-145)
[2020-09-09] MEDS: ondansetron HCL 4 MG/2 ML VIAL IVPUSH (05:40)
[2020-09-09] MEDS: Lactated Ringers 1,000 ML 125 ML IVCONT (05:40)
[2020-09-09] MEDS: 0.9 % Sodium Chloride Flush 3 ML SYRINGE IVFLUSH (05:43)
[2020-09-09 07:56] VITALS: BP 183/97; PULSE 89; RESP 17; TEMP 36.6; O2SAT 100
[2020-09-09 08:19] VITALS: O2SAT 100
--- NOTE | 2020-09-09 08:55 | MHC.CM.PN ---
dc plan home no servceis
--- NOTE | 2020-09-09 12:03 | MHC.CM.PN ---
pt иринаd home prior to being seen by ravi hernández dc with no skilled servcies orderd by
--- NOTE | 2020-09-10 06:41 | HO.POSTANES ---
Post Anesthesia Evaluation Post Anesthesia Evaluation Vital Signs: Patient seen the morning of 09/09/20 at 830am. All vital signs were stable Anesthesia: General Endotracheal-GETA Mental Status: Awake Pain Control: Satisfactory Nausea/Vomiting: None Hydration: Adequate Anesthesia-Related Issues: No Anes. Related Issues
== END 2020-09-09 09:39 | disposition home or self-care (01) | DRG 403 ==
LOC: HO.SSSA 10:58 → HO.S3 13:08
PROVIDERS: Physician Assistant; Admitting Provider Surgery; PCP Internal Medicine; Visit Provider Surgery
PROC: 0DB64Z3 Excision of Stomach, Percutaneous Endoscopic Approach, Vertical (ICD-10-PCS; CPT 43845; principal; 2020-09-08 07:30)
DX: E66.01 Morbid (severe) obesity due to excess calories (principal); K74.00 Hepatic fibrosis, unspecified; K44.0 Diaphragmatic hernia with obstruction, without gangrene; E78.5 Hyperlipidemia, unspecified; K76.0 Fatty (change of) liver, not elsewhere classified; G47.30 Sleep apnea, unspecified; K66.0 Peritoneal adhesions (postprocedural) (postinfection); I10 Essential (primary) hypertension; Z20.822 Contact with and (suspected) exposure to COVID-19; Z68.42 Body mass index [BMI] 45.0-49.9, adult; Z79.899 Other long term (current) drug therapy
CPT/HCPCS: 43775; 43281; 36415; 80048; 80053; 80061; 83036; 83525; 84443; 85014; 85018; 85025; 85610; 85730; 86140; 86850; 86900; 86901; 87635; 88307; 88342; 99024; A4649; J0131; J0330; J0690; J1100; J1170; J1200; J2250; J2370; J2405; J3010

== ENCOUNTER → 2020-09-16 07:31 | Outpatient (BNVA) | payer OTHER, SELFPAY | PROVIDERS: PCP Internal Medicine; Visit Provider Surgery ==

== ENCOUNTER → 2020-10-14 08:06 | Outpatient (BNVA) | payer OTHER, SELFPAY | PROVIDERS: PCP Internal Medicine; Visit Provider Surgery ==

== ENCOUNTER → 2020-11-13 08:18 | Outpatient (BNVA) | payer OTHER, SELFPAY | PROVIDERS: PCP Internal Medicine; Visit Provider Surgery ==

== ENCOUNTER → 2020-12-16 08:12 | Outpatient (BNVA) | payer OTHER, SELFPAY | PROVIDERS: PCP Internal Medicine; Visit Provider Surgery ==

== ENCOUNTER → 2021-02-05 07:45 | Outpatient (BNVA) | payer OTHER, SELFPAY | PROVIDERS: PCP Internal Medicine; Visit Provider Surgery ==

== ENCOUNTER 2024-06-18 13:19 | Outpatient (AMB) | payer OTHER, SELFPAY ==
--- NOTE | 2024-06-18 13:09 | A.OFFVIS_ITS ---
VS Expanded 06/18/24 13:10 Height 5 ft 10 in Weight 230 lb BMI 33.0 Intake Visit Reasons: TV PO LSG 09/08/20 Allergies No Known Allergies Allergy (Verified 09/16/20 07:47) HPI Comments Details: This?is a?43?yo male who is s/p LSG 09/08/2020. Presents for 3 year 9 months post op visit. Weight loss of about 15 lbs since last OV over 3 years ago.? No complaints of nausea, emesis, abdominal pain or reflux, or constipation. 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 nothing formal, has a bike, treadmill, weights PFSH Medical History (Updated 02/05/21 @ 11:21 by David Real MD) Liver fibrosis Steatosis, liver Family history of sickle cell trait COVID-19 vaccine administered Vitamin B1 deficiency Vitamin B12 deficiency Vitamin A deficiency Hyperlipidemia Sleep apnea with use of continuous positive airway pressure (CPAP) Hypertension Surgical History (Updated 09/16/20 @ 07:49 by Ja Roy REPLACED BY [facility]) History of sleeve gastrectomy Hx of wisdom tooth extraction Morbid obesity Family History Mother Hypertension Father Hypertension Brother No problems noted. Brother No problems noted. Brother No problems noted. Son No problems noted. Son No problems noted. Son No problems noted. Social History Are you a primary primary care sales representative to a significant other at home: No Do you presently have visiting nurse or other home services: No Alcohol intake: former Telehealth Telehealth Telehealth Platform: Telephone Location of provider rendering services: other Location of patient: address on file Patient Identification confirmed using: Name, : Yes Telehealth method: voice only Patient verbally consented to treatment: Yes Patient verbally consented to billing insurance company: Yes Patient informed of any privacy concerns related to visit: Yes Minutes spent on Phone/Video with Pt.: 14 Assessment & Plan Assessment & Plan (1) Obesity: Code(s): E66.9 - Obesity, unspecified Category: Medical (2) S/P laparoscopic sleeve gastrectomy: Code(s): Z98.84 - Bariatric surgery status Category: Surgical Plan Pt has reached a weight loss stall. Recommended resuming a high protein meal plan with primarily supplements. 2 Celebrate shakes per day of 2 scoops 4:1 each in 8oz UAM. 1 16g bar, 1 meal 8f/8f. Labs ordered. RTC 1 month for phone visit to monitor progress. I spent a total of 30 minutes reviewing/updating records, examining the patient and counseling the patient on weight management as detailed above. Orders: Orders Insulin Today E66.9 - Obesity, unspecified, Z98.84 - Bariatric surgery status Hemoglobin A1c Today E66.9 - Obesity, unspecified, Z98.84 - Bariatric surgery status Complete Blood Count Auto Diff Today E66.9 - Obesity, unspecified, Z98.84 - Bariatric surgery status Lipid Panel Today E66.9 - Obesity, unspecified, Z98.84 - Bariatric surgery status Comprehensive Met. Panel Today E66.9 - Obesity, unspecified, Z98.84 - Bariatric surgery status C Reactive Protein Today E66.9 - Obesity, unspecified, Z98.84 - Bariatric surgery status Vitamin B1 Today E66.9 - Obesity, unspecified, Z98.84 - Bariatric surgery status Ferritin Today E66.9 - Obesity, unspecified, Z98.84 - Bariatric surgery status IRON PROFILE Today E66.9 - Obesity, unspecified, Z98.84 - Bariatric surgery status Vitamin B12 and Folate Today E66.9 - Obesity, unspecified, Z98.84 - Bariatric surgery status Zinc Today E66.9 - Obesity, unspecified, Z98.84 - Bariatric surgery status Vitamin A Today E66.9 - Obesity, unspecified, Z98.84 - Bariatric surgery status TSH reflex Free T4 Today E66.9 - Obesity, unspecified, Z98.84 - Bariatric surgery status Vitamin D 25-OH Total Today E66.9 - Obesity, unspecified, Z98.84 - Bariatric surgery status
[2024-06-18 13:10] VITALS: BMI 33.0
== END 2024-06-18 13:21 | disposition home or self-care (01) ==
LOC: HO.HBS 13:19
PROVIDERS: PCP Internal Medicine; Visit Provider Physician Assistant Surgical
DX: E66.9 Obesity, unspecified (principal); Z98.84 Bariatric surgery status
CPT/HCPCS: 99214

== ENCOUNTER → 2024-06-18 13:19 | Outpatient (BNVA) | payer OTHER, SELFPAY | PROVIDERS: PCP Internal Medicine; Visit Provider Physician Assistant Surgical | DX: Z98.84 Bariatric surgery status (principal); E66.9 Obesity, unspecified ==

== ENCOUNTER 2024-08-05 14:08 | Outpatient (AMB) | payer OTHER, SELFPAY ==
--- NOTE | 2024-08-05 14:00 | A.OFFVIS_ITS ---
Intake Visit Reasons: TELEPHONE PO LSG 09/08/20 Allergies No Known Allergies Allergy (Verified 09/16/20 07:47) Medication List - Last Reconciled 08/05/24 by MOLINA Feliciano amlodipine 10 mg PO DAILY hydrochlorothiazide 25 mg PO DAILY ondansetron HCl (Zofran) 4 mg PO DAILY PRN pantoprazole 40 mg PO DAILY pravastatin 80 mg PO DAILY sucralfate 10 mL PO BID HPI Comments Details: This?is a?43?yo male who is s/p LSG 09/08/2020. Weight relatively stable since last OV (230).? No complaints of nausea, emesis, abdominal pain or reflux, or constipation. Frustrated by stall in weight. Present meal plan includes: 2 Celebrate shakes per day of 2 scoops 4:1 each in 8oz UAM. 1 16g bar, 1 meal 8f/8f- recommended at last visit tried for a week- got hungry, does feel like clothes fit better still does have protein bar for breakfast, or eggs/sausage- then doesn't eat unt il dinner sometimes tried to increase hydration, used Liquid IV thinks he gets enough protein from his current meal plan of eating regular food in small portions Exercise: active at work but nothing formal [facility] Medical History (Updated 02/05/21 @ 11:21 by David Real MD) Liver fibrosis Steatosis, liver Family history of sickle cell trait COVID-19 vaccine administered Vitamin B1 deficiency Vitamin B12 deficiency Vitamin A deficiency Hyperlipidemia Sleep apnea with use of continuous positive airway pressure (CPAP) Hypertension Surgical History (Updated 09/16/20 @ 07:49 by Ja Roy [facility]) History of sleeve gastrectomy Hx of wisdom tooth extraction Morbid obesity Family History Mother Hypertension Father Hypertension Brother No problems noted. Brother No problems noted. Brother No problems noted. Son No problems noted. Son No problems noted. Son No problems noted. Social History Are you a primary healthcare manager to a significant other at home: No Do you presently have visiting nurse or other home services: No Alcohol intake: former Telehealth Telehealth Telehealth Platform: Telephone Location of provider rendering services: other Location of patient: address on file Patient Identification confirmed using: Name, : Yes Telehealth method: voice only Patient verbally consented to treatment: Yes Patient verbally consented to billing insurance company: Yes Patient informed of any privacy concerns related to visit: Yes Minutes spent on Phone/Video with Pt.: 12 Assessment & Plan Assessment & Plan (1) Obesity: Code(s): E66.9 - Obesity, unspecified Category: Medical (2) S/P laparoscopic sleeve gastrectomy: Code(s): Z98.84 - Bariatric surgery status Category: Surgical Plan After discussion pt appears to be low on total protein intake. He often skips eating after breakfast until dinner because he doesn't feel hungry. Advised aiming for protein goal 80g/day, eat 4x per day each meal having protein rich items. Also recommended increasing cardio exercise, discussed the importance of designated exercise vs being active at work. Pt agreeable to trying suggestions. Reminded to have labs drawn. RTC 6 weeks. I spent a total of 30 minutes reviewing/updating records, examining the patient and counseling the patient on weight management as detailed above.
== END 2024-08-05 14:40 | disposition home or self-care (01) ==
LOC: HO.HBS 14:08
PROVIDERS: PCP Internal Medicine; Visit Provider Physician Assistant Surgical
DX: E66.9 Obesity, unspecified (principal); Z98.84 Bariatric surgery status
CPT/HCPCS: 98967

== ENCOUNTER → 2024-08-05 14:08 | Outpatient (BNVA) | payer OTHER, SELFPAY | PROVIDERS: PCP Internal Medicine; Visit Provider Physician Assistant Surgical ==

== ENCOUNTER 2024-09-23 13:50 | Outpatient (AMB) | payer OTHER, SELFPAY ==
--- NOTE | 2024-09-23 13:35 | A.OFFVIS_ITS ---
VS Expanded 09/23/24 13:38 Height 5 ft 10 in Weight 222 lb BMI 31.9 Intake Visit Reasons: TELEPHONE PO LSG 09/08/20 Allergies No Known Allergies Allergy (Verified 09/16/20 07:47) Medication List - Last Reconciled 09/23/24 by MOLINA Feliciano amlodipine 10 mg PO DAILY pravastatin 80 mg PO DAILY HPI Comments Details: This?is a?43?yo male who is s/p LSG 09/08/2020. Presents for 4 year postop visit. Weight loss of 8lbs since last OV 6w ago. Has been trying to make sure he is getting enough protein in. 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 GERD: never [place]:? CPAP DM:? never? HTN:? amlodipine Hyperlipidemia:? pravastatin Post op complications:? none Have you been diagnosed with reflux (GERD)? no Score 0-5: 0=no symptoms, 1=noticeable but not bothersome (slight or occasional), 2=noticeable, bothersome but not daily, 3=bothersome and daily, 4=affects daily activities, 5=incapacitating, unable to do daily activities How bad is the heartburn: 0 Heartburn when lying down: 0 Heartburn when standing up: 0 Heartburn after meals: 0 Does heartburn change your diet: 0 Does heartburn wake you up from sleep: 0 Do you have difficulty swallowin Do you have pain with swallowin If you take medication for reflux, does this affect your daily life: 0 Total score: 0 PFSH Medical History (Updated 02/05/21 @ 11:21 by David Real MD) Liver fibrosis Steatosis, liver Family history of sickle cell trait COVID-19 vaccine administered Vitamin B1 deficiency Vitamin B12 deficiency Vitamin A deficiency Hyperlipidemia Sleep apnea with use of continuous positive airway pressure (CPAP) Hypertension Surgical History (Updated 09/16/20 @ 07:49 by Ja Roy Levon) History of sleeve gastrectomy Hx of wisdom tooth extraction Morbid obesity Family History Mother Hypertension Father Hypertension Brother No problems noted. Brother No problems noted. Brother No problems noted. Son No problems noted. Son No problems noted. Son No problems noted. Social History Are you a primary transition of care specialist to a significant other at home: No Do you presently have visiting nurse or other home services: No Alcohol intake: former Telehealth Telehealth Telehealth Platform: Telephone Location of provider rendering services: other Location of patient: address on file Patient Identification confirmed using: Name, : Yes Telehealth method: voice only Patient verbally consented to treatment: Yes Patient verbally consented to billing insurance company: Yes Patient informed of any privacy concerns related to visit: Yes Minutes spent on Phone/Video with Pt.: 16 Assessment & Plan Assessment & Plan (1) Obesity: Code(s): E66.9 - Obesity, unspecified Category: Medical (2) S/P laparoscopic sleeve gastrectomy: Code(s): Z98.84 - Bariatric surgery status Category: Medical Plan Pt doing better with weight loss after increasing his daily protein intake. Continue same meal plan for now. He plans to come later this week to have labs drawn. RTC 2 months. I spent a total of 30 minutes reviewing/updating records, examining the patient and counseling the patient on weight management as detailed above.
[2024-09-23 13:38] VITALS: BMI 31.9
--- OUTSIDE RECORDS SUMMARY | 2024-09-23 15:50 | XMS_ITS | Encounter Summary ---
Author Organization [facility] Address [address] [place] [address] Care Team Providers Care Director Of Procurement Name Role Phone Clemente Naidu MD Primary Care Provider [phone] Reason for Visit * Reason Comments Hypertension Encounter Details Date Type Department Care Team (Late st Contact Info) Description 08/30/2024 3:00 PM EST Office Visit Internal Medicine - [address] [phone] Khushbu Reyes, ULISS[place] [address] [place] [address] HTN (hypertension), benign (Primary Dx) Social History Tobacco Use Types Packs/Day Years Used Date Smoking Tobacco: Never Tobacco Cessation:Counseling Given: Not Answered Alcohol Use Standard Drinks/Week Comments Yes 0 (1 standard drink = 0.6 oz pur e alcohol) Sex and Gender Information Value Date Recorded Sex Assigned at Not on file Legal Sex Male 7:17 AM EST Gender Identity Not on file Sexual Orientation Not on file documented as of this encounter Last Filed Vital Signs Vital Sign Reading Time Taken Comments Blood Pressure 134/88 08/30/2024 3:27 PM EST Pulse 101 08/30/2024 3:08 PM EST auto cuff Temperature 36.7 ??C (98.1 ??F) 08/30/2024 3:08 PM ES T Respiratory Rate - - Oxygen Saturation - - Inhaled Oxygen Concentration - - Weight 107 kg (235 lb) 08/30/2024 3:08 PM EST Height - - Body Mass Index 33.72 05/16/2024 9:08 AM EDT documented in this encounter Ordered Prescriptions Prescription Sig Dispense Quantity Refills Last Filled Start Date End Date amLODIPine (NORVASC) 10 mg tabletIndications: HTN (hypertension), benign Take 1 tablet (10 mg total) by mouth 1 (one) time each day. 30 each 5 08/30/2024 02/26/2025 documented in this encounter Progress Notes * Khushbu Tate NP - 08/30/2024 3:00 PM EST Follow up with PCP in 3 months I have increased your Amlodipine to 10 mg 1 tablet by mouth daily, because your blood pressure readings have been high in the near past. 3. Do the cmp today. * Khushbu Tate NP - 08/30/2024 3:00 PM EST CHIEF COMPLAINT: Hypertension HPI: Paulino Longoria is a 43 y.o. old male with PMH of hypertension, sleep apnea, hyperlipidemia, and insomnia. Patient presents today for high blood pressures when he goes to the weight management program. Blood pressure today was also elevated at 144/100. No complaints of dizziness or lightheadedness during today's visit, no chest pain, no SOB. ROS: See HPI for pertinent positives Constitutional: no weakness fever/ sweats, or weight change HEENT: no acute vision changes, ear pain, sore throat, nasal discharge. Respiratory: no shortness of breath, cough or wheezing Cardiovascular:no chest pain or palpitations, no orthopnea or edema GI: no nausea, vomiting or diarrhea; no rectal bleeding or dark stools MSK: no joint or muscle pain, swelling or impaired ROM Neuro: no acute headaches, dizziness, weakness. PHYSICAL EXAM: Visit Vitals BP 134/88 Pulse 101 Comment: auto cuff Temp 36.7 ??C (98.1 ??F) Wt 107 kg (235 lb) BMI 33.72 kg/m?? Smoking Status Never BSA 2.24 m?? APPEARANCE: Alert and in no acute distress HEART: RRR with normal S1 and S2, no murmurs, no gallops LUNG: Clear to auscultation bilaterally. Able to talk in full complete sentences EXTREMITIES: Extremities warm and well perfused without clubbing, cyanosis, or edema. NEURO: Alert and oriented x 3. Gait steady. PAST MEDICAL HISTORY: Patient Active Problem List Diagnosis HTN (hypertension), benign Hyperlipemia Insomnia Obstructive sleep apnea Morbid obesity with BMI of 45.0-49.9, adult ([facility]) Screening for metabolic disorder ACTIVE MEDICATIONS: Outpatient Medications Marked as Taking for the 08/30/24 encounter (Office Visit) with Khushbu Tate NP Medication Sig Dispense Refill amLODIPine (NORVASC) 10 mg tablet Take 1 tablet (10 mg total) by mouth 1 (one) time each day. 30 each 5 atorvastatin (LIPITOR) 20 mg tablet Take 1 Tablet by mouth daily. Wegovy 1.7 mg/0.75 mL injection pen Inject 1.7 mg under the skin every 7 (seven) days. [DISCONTINUED] amLODIPine (NORVASC) 5 mg tablet Take 2 tablets (10 mg total) by mouth 1 (one) time each day. ALLERGIES: Allergies Allergen Reactions Lisinopril Other COUGH IMPRESSION: 1. HTN (hypertension), benign PLAN: 1. Increase amlodipine to 10 mg 1 tablet by mouth daily. Although patient's repeated BP is within normal limits, per chart review and other blood pressures, the patient has had a few high readings which warrant today's changes. Patient continues in weight loss management successfully. Discussed red flags that would warrant further evaluation. Plan of care reviewed with patient and patient verbalized understanding and is in agreement with plan. ORDERS: Orders Placed This Encounter Procedures Comprehensive metabolic panel Medications Discontinued During This Encounter Medication Reason amLODIPine (NORVASC) 5 mg tablet Reorder None Khushbu Tate NP on 08/30/2024 documented in this encounter Plan of Treatment Upcoming Encounters Date Type Department Care Team (Late st Contact Info) Description 11/07/2024 9:00 AM EDT Office Visit [facility] Hematology Oncology [address] [place] [phone] Noelle Watson PA [address] [place] [address] 11/27/2024 8:15 AM EDT Office Visit Internal Medicine - [facility] [address] [place], [place] [phone] Clemente Naidu MD [address] [place] [address] documented as of this encounter Results * Comprehensive metabolic panel (08/30/2024 3:42 PM EST) Sodium 140 133 - 145 mmol/L LAB CHEMISTRY METHOD 08/30/2024 6:54 PM [facility] Potassium 4.1 3.5 - 5.5 mmol/L LAB CHEMISTRY METHOD 08/30/2024 6:54 PM [facility] Chloride 106 96 - 110 mmol/L LAB CHEMISTRY METHOD 08/30/2024 6:54 PM [facility] CO2 30 21 - 32 mmol/L LAB CHEMISTRY METHOD 08/30/2024 6:54 PM [facility] Anion Gap 4 3 - 11 LAB CHEMISTRY METHOD 08/30/2024 6:54 PM [facility] Glucose 84 70 - 100 mg/dL LAB CHEMISTRY METHOD 08/30/2024 6:54 PM [facility] BUN 12 5 - 25 mg/dL LAB CHEMISTRY METHOD 08/30/2024 6:54 PM [facility] Creatinine 1.18 0.70 - 1.30 mg/dL LAB CHEMISTRY METHOD 08/30/2024 6:54 PM [facility] eGFR 79 >=60 mL/min/1. 73m2 LAB CHEMISTRY METHOD 08/30/2024 6:54 PM [facility] Comment:Calculation based on the??Chronic Kidney Disease Epidemiology Collaboration (CKD-EPI) equation refit??without adjustment for race. BUN/Creatinine Ratio 10.2 LAB CHEMISTRY METHOD 08/30/2024 6:54 PM [facility] Calcium 9.7 8.5 - 10.5 mg/dL LAB CHEMISTRY METHOD 08/30/2024 6:54 PM [facility] AST (SGOT) 10 10 - 42 unit/L LAB CHEMISTRY METHOD 08/30/2024 6:54 PM [facility] ALT (SGPT) 20 10 - 60 unit/L LAB CHEMISTRY METHOD 08/30/2024 6:54 PM [facility] Alkaline Phosphatase 60 42 - 121 unit/L LAB CHEMISTRY METHOD 08/30/2024 6:54 PM [facility] Total Protein 7.5 6.0 - 8.0 g/dL LAB CHEMISTRY METHOD 08/30/2024 6:54 PM [facility] Albumin 4.3 3.2 - 5.0 g/dL LAB CHEMISTRY METHOD 08/30/2024 6:54 PM [facility] Total Bilirubin 0.7 0.0 - 1.4 mg/dL LAB CHEMISTRY METHOD 08/30/2024 6:54 PM [facility] Blood Venous blood specimen / Unknown Venipuncture / Unknown 08/30/2024 3:42 PM EST 08/30/2024 3:42 PM EST us Khushbu Tate NP LAB BLOOD ORDERABLES Final R esult [facility] [address] [place] [address], documented in this encounter Visit Diagnoses Diagnosis HTN (hypertension), benign- Primary Essential hypertension, benign documented in this encounter Discontinued Medications Medication Sig Discontinue Reason Start Date End Da te amLODIPine (NORVASC) 5 mg tablet Take 2 tablets (10 mg total) by mouth 1 (one) time each day. Reorder 04/10/2024 08/30/2024 documented as of this encounter Historical Medications * This list may reflect changes made after this encounter. Wegovy 1.7 mg/0.75 mL injection pen Inject 1.7 mg under the skin every 7 (seven) days. 08/16/2024 added in this encounter Care Teams Director Of Procurement Relationship Specialty Start Date End Date Clemente Naidu MD [address] [place] [address] PCP - General 04/15/24 documented as of this encounter
--- OUTSIDE RECORDS SUMMARY | 2024-09-23 15:50 | XMS_ITS | Encounter Summary ---
Author Organization [facility] Address [address] [place] [address] Care Team Providers Care Wheat Buyer Name Role Phone Clemente Naidu MD Primary Care Provider [phone] Encounter Details Date Type Department Care Team (Late st Contact Info) Description 08/30/2024 3:35 PM EST Lab Draw Station [address] [phone] Screening for metabolic disorder Social History Tobacco Use Types Packs/Day Years Used Date Smoking Tobacco: Never Alcohol Use Standard Drinks/Week Comments Yes 0 (1 standard drink = 0.6 oz pur e alcohol) Sex and Gender Information Value Date Recorded Sex Assigned at Not on file Legal Sex Male 7:17 AM EST Gender Identity Not on file Sexual Orientation Not on file documented as of this encounter Progress Notes * Khushbu Tate NP - 08/30/2024 3:35 PM EST My chart message sent to patient re: stable results. documented in this encounter Plan of Treatment Upcoming Encounters Date Type Department Care Team (Late Contact Info) Description 11/07/2024 9:00 AM EDT Office Visit [facility] Hematology Oncology [address] [place] [phone] Noelle Watson PA [address] [place] [address] 11/27/2024 8:15 AM EDT Office Visit Internal Medicine - [facility] [address] [place], [place] [phone] Clemente Naidu MD [address] [place] [address] documented as of this encounter Procedures Procedure Name Priority Date/Time Associated Diagnosis Comments COMPREHENSIVE METABOLIC PANEL Routine 08/30/2024 3:42 PM EST Screening for metabolic disorder documented in this encounter Results * Comprehensive metabolic panel (08/30/2024 3:42 PM EST) Sodium 140 133 - 145 mmol/L LAB CHEMISTRY METHOD 08/30/2024 6:54 PM [facility] Potassium 4.1 3.5 - 5.5 mmol/L LAB CHEMISTRY METHOD 08/30/2024 6:54 PM [facility] Chloride 106 96 - 110 mmol/L LAB CHEMISTRY METHOD 08/30/2024 6:54 PM [facility] CO2 30 21 - 32 mmol/L LAB CHEMISTRY METHOD 08/30/2024 6:54 PM [facility] Anion Gap 4 3 - 11 LAB CHEMISTRY METHOD 08/30/2024 6:54 PM [facility] Glucose 84 70 - 100 mg/dL LAB CHEMISTRY METHOD 08/30/2024 6:54 PM [facility] BUN 12 5 - 25 mg/dL LAB CHEMISTRY METHOD 08/30/2024 6:54 PM [facility] Creatinine 1.18 0.70 - 1.30 mg/dL LAB CHEMISTRY METHOD 08/30/2024 6:54 PM [facility] eGFR 79 >=60 mL/min/1. 73m2 LAB CHEMISTRY METHOD 08/30/2024 6:54 PM [facility] Comment:Calculation based on the??Chronic Kidney Disease Epidemiology Collaboration (CKD-EPI) equation refit??without adjustment for race. BUN/Creatinine Ratio 10.2 LAB CHEMISTRY METHOD 08/30/2024 6:54 PM [facility] Calcium 9.7 8.5 - 10.5 mg/dL LAB CHEMISTRY METHOD 08/30/2024 6:54 PM [facility] AST (SGOT) 10 10 - 42 unit/L LAB CHEMISTRY METHOD 08/30/2024 6:54 PM [facility] ALT (SGPT) 20 10 - 60 unit/L LAB CHEMISTRY METHOD 08/30/2024 6:54 PM [facility] Alkaline Phosphatase 60 42 - 121 unit/L LAB CHEMISTRY METHOD 08/30/2024 6:54 PM [facility] Total Protein 7.5 6.0 - 8.0 g/dL LAB CHEMISTRY METHOD 08/30/2024 6:54 PM [facility] Albumin 4.3 3.2 - 5.0 g/dL LAB CHEMISTRY METHOD 08/30/2024 6:54 PM [facility] Total Bilirubin 0.7 0.0 - 1.4 mg/dL LAB CHEMISTRY METHOD 08/30/2024 6:54 PM [facility] Blood Venous blood specimen / Unknown Venipuncture / Unknown 08/30/2024 3:42 PM EST 08/30/2024 3:42 PM EST us Khushbu Tate BIOCHEMISTRY SPECIALIST LAB BLOOD ORDERABLES Final R esult [facility] [address] [place] [address], documented in this encounter Visit Diagnoses Diagnosis Screening for metabolic disorder documented in this encounter Care Teams Wheat Buyer Relationship Specialty Start Date End Date Clemente Naidu MD [address] [place] [id number] PCP - General 04/15/24 documented as of this encounter
--- OUTSIDE RECORDS SUMMARY | 2024-09-23 15:50 | XMS_ITS ---
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 SECA done. Previous weight was 237. Today the patient weight is 231. He is complaining of back pain for 2 weeks now MEDICATIONS Medication SIG (Take, Route, Frequency, Duration) Notes Start Date End Date Status Wegovy 2.4 MG/0.75ML Inject 2.4mg Subcutaneous weekly for 30 days 0.25mg dose received in office Active Ondansetron HCl 4 MG 1 tablet Orally every 8 hours for 30 days 11/30/2023 Active amLODIPine Besylate 10 MG 1 tablet Orally Once a day for 90 days 11/30/2023 Active Atorvastatin Calcium 20 MG Oral for 30 Days Active Wegovy 1.7 MG/0.75ML inject 1.7mg Subcutaneous weekly for 30 days 08/15/2024 Active Wegovy 1 MG/0.5ML inject 1mg Subcutaneous weekly for 30 days Received previous doses at recommended intervals in office. 04/02/2024 Not-Taking VITAL SIGNS Blood pressure systolic 164 mm Hg 09/18/19 25 Blood pressure diastolic 80 mm Hg 025 Heart Rate 91 /min 09/18/2024 Height 71 in 09/18/2024 Weight 231 lbs 09/18/2024 BMI 32.21 kg/m2 09/18/2024 Oximetry 96 % 09/18/2024 Encounters Encounter Location Date Provider Diagnosis [address] [facility] [address] [place] [address] 09/18/2024 ALCIDES LING BMI 32.0-32.9,adult Z68.32 ; Essential (primary) hypertension I10 ; Obesity (BMI 30-39.9) E66.9 ; Elevated lipids E78.5 and Dietary counseling and surveillance Z71.3 ASSESSMENTS Encounter Date Diagnosis Assessment Notes Treatment Notes Treatment Clinical Notes Section Notes 09/18/2024 BMI 32.0-32.9,adult (ICD-10 - Z68.32) Paulino is a 44-year-old male with a PMH of HTN that presents for weight management follow-up. Patient establish care in November at which time his weight was 249. Reviewed [facility] holistic and medical approach to weight loss with emphasis on lifestyle modification. 09/18/2024: Weight: 231, BMI: 32.2. Patient down 6 pounds. SECA reviewed. Discussed the importance of continued prioritization of protein intake, goal 80 to 100 g/day. Additionally discussed the importance of continued physical activity as tolerated. Plan to increase dose of Wegovy 2.4 mg SC weekly and follow-up in 1 month. 08/20/2024: Weight: 237, BMI: 33. Patient up 3 pounds. SECA reviewed, reveals fat loss with maintenance of muscle mass. Patient feels clothing is fitting better, unsure as to why fat mass would be up. Discussed the importance of adequate nutrition in the setting of GLP-1 induced appetite suppression in terms of protein/calorie intake. Discussed that poor caloric intake can result in storage fat mass, patient demonstrates understanding. Plan to increase dose of Wegovy to 1.7 mg SC weekly (patient already picked up) and follow-up in 1 month. #HTN: BP elevated at 150/70. Currently taking amlodipine 5 mg once daily. Has been prescribed 10 mg dose in the past, however is not currently taking this. He is encouraged to follow-up with his primary care provider to discuss antihypertensive dosing. 07/16/2024: Weight: 234, BMI: 32.6. SECA reviewed, reveals 2 pounds of fat gain as well as 1 pound loss in the skin. Patient up half an inch in waist circumference. Patient is encouraged to continue practicing portion control and prioritizing intake of protein, vegetables, fruits, whole grains, etc. Recommending continued walking with added strength training 2-3 times weekly. Plan to increase dose of Wegovy to 1 mg SC weekly and follow-up in 1 month. 06/11/2024: Weight: 233, BMI: 32. Patient down 5 pounds with lifestyle changes alone, patient congratulated on progress.SECA reviewed reveals 3 pounds of fat loss and maintenance of muscle mass. The patient is encouraged to continue prioritizing healthy foods, and limiting unhealthy foods such as fats, carbs, and added sugars. Recommending increased water intake, goal 60 to 80 ounces/day. As the patient has been following with us x 6 months (establish care 11/30/2023) plan to resubmit Rx for Wegovy 0.5 mg SC weekly to insurance company. Reviewed expectations for PA process/insurance coverage. 04/30/2024: Weight: 238, BMI: 33.19. SECA reviewed reveals fat loss with maintenance of muscle mass. The patient is encouraged to continue with his physical activity and making conscientious diet choices. Patient's BP elevated in office today at 158/82, per patient he was recently started on a new medication. Upon questioning, he realized he has not been taking his blood pressure medication. He is encouraged to restart his blood pressure medication amlodipine and take as prescribed. Plan to continue with an office compounded semaglutide 1 mg SC weekly. Will resubmit to insurance at the end of April as at that point the patient will have been following with us for more than 6 consecutive months. 04/02/2024: Weight 242, BMI 33.7. SECA reviewed. Reviewed goals for implementing sustainable lifestyle changes. Patient is encouraged to continue with increased protein intake. Recommending he continue to prepare his own meals. Discussed goal of implementing weight training with proper safety/body mechanics twice-weekly. As it has been 3 consecutive months of commitment to lifestyle changes, Rx for Wegovy 1 mg SC weekly sent to pharmacy. Patient is educated on proper use and side effects. All questions answered to the patient's satisfaction. Patient demonstrates understanding of diagnosis and treatments discussed. Follow-up in 4 weeks, sooner should any questions/concerns arise. Case discussed with collaborating physician Derik Smith who has reviewed the assessment/plan. Chart, medications, labs, and vital signs reviewed. Dictation completed with the use of Dragon voice recognition software, prone to medical misidentifications and grammatical errors. All errors are unintentional. Although the practitioner does try to identify and correct errors, some may be present. Please do not hesitate to contact the practitioner for clarification. Total time spent was 30 minutes with >50% on coordination of care and patient education. 09/18/2024 Essential (primary) hypertension (ICD-10 - I10) Paulino is a 44-year-old male with a PMH of HTN that presents for weight management follow-up. Patient establish care in November at which time his weight was 249. Reviewed [facility] holistic and medical approach to weight loss with emphasis on lifestyle modification. 09/18/2024: Weight: 231, BMI: 32.2. Patient down 6 pounds. SECA reviewed. Discussed the importance of continued prioritization of protein intake, goal 80 to 100 g/day. Additionally discussed the importance of continued physical activity as tolerated. Plan to increase dose of Wegovy 2.4 mg SC weekly and follow-up in 1 month. 08/20/2024: Weight: 237, BMI: 33. Patient up 3 pounds. SECA reviewed, reveals fat loss with maintenance of muscle mass. Patient feels clothing is fitting better, unsure as to why fat mass would be up. Discussed the importance of adequate nutrition in the setting of GLP-1 induced appetite suppression in terms of protein/calorie intake. Discussed that poor caloric intake can result in storage fat mass, patient demonstrates understanding. Plan to increase dose of Wegovy to 1.7 mg SC weekly (patient already picked up) and follow-up in 1 month. #HTN: BP elevated at 150/70. Currently taking amlodipine 5 mg once daily. Has been prescribed 10 mg dose in the past, however is not currently taking this. He is encouraged to follow-up with his primary care provider to discuss antihypertensive dosing. 07/16/2024: Weight: 234, BMI: 32.6. SECA reviewed, reveals 2 pounds of fat gain as well as 1 pound loss in the skin. Patient up half an inch in waist circumference. Patient is encouraged to continue practicing portion control and prioritizing intake of protein, vegetables, fruits, whole grains, etc. Recommending continued walking with added strength training 2-3 times weekly. Plan to increase dose of Wegovy to 1 mg SC weekly and follow-up in 1 month. 06/11/2024: Weight: 233, BMI: 32. Patient down 5 pounds with lifestyle changes alone, patient congratulated on progress.SECA reviewed reveals 3 pounds of fat loss and maintenance of muscle mass. The patient is encouraged to continue prioritizing healthy foods, and limiting unhealthy foods such as fats, carbs, and added sugars. Recommending increased water intake, goal 60 to 80 ounces/day. As the patient has been following with us x 6 months (establish care 11/30/2023) plan to resubmit Rx for Wegovy 0.5 mg SC weekly to insurance company. Reviewed expectations for PA process/insurance coverage. 04/30/2024: Weight: 238, BMI: 33.19. SECA reviewed reveals fat loss with maintenance of muscle mass. The patient is encouraged to continue with his physical activity and making conscientious diet choices. Patient's BP elevated in office today at 158/82, per patient he was recently started on a new medication. Upon questioning, he realized he has not been taking his blood pressure medication. He is encouraged to restart his blood pressure medication amlodipine and take as prescribed. Plan to continue with an office compounded semaglutide 1 mg SC weekly. Will resubmit to insurance at the end of April as at that point the patient will have been following with us for more than 6 consecutive months. 04/02/2024: Weight 242, BMI 33.7. SECA reviewed. Reviewed goals for implementing sustainable lifestyle changes. Patient is encouraged to continue with increased protein intake. Recommending he continue to prepare his own meals. Discussed goal of implementing weight training with proper safety/body mechanics twice-weekly. As it has been 3 consecutive months of commitment to lifestyle changes, Rx for Wegovy 1 mg SC weekly sent to pharmacy. Patient is educated on proper use and side effects. All questions answered to the patient's satisfaction. Patient demonstrates understanding of diagnosis and treatments discussed. Follow-up in 4 weeks, sooner should any questions/concerns arise. Case discussed with collaborating physician Derik Smith who has reviewed the assessment/plan. Chart, medications, labs, and vital signs reviewed. Dictation completed with the use of dotloop voice recognition software, prone to medical misidentifications and grammatical errors. All errors are unintentional. Although the practitioner does try to identify and correct errors, some may be present. Please do not hesitate to contact the practitioner for clarification. Total time spent was 30 minutes with >50% on coordination of care and patient education. 09/18/2024 Obesity (BMI 30-39.9) (ICD-10 - E66.9) Paulino is a 44-year-old male with a PMH of HTN that presents for weight management follow-up. Patient establish care in November at which time his weight was 249. Reviewed [facility] holistic and medical approach to weight loss with emphasis on lifestyle modification. 09/18/2024: Weight: 231, BMI: 32.2. Patient down 6 pounds. SECA reviewed. Discussed the importance of continued prioritization of protein intake, goal 80 to 100 g/day. Additionally discussed the importance of continued physical activity as tolerated. Plan to increase dose of Wegovy 2.4 mg SC weekly and follow-up in 1 month. 08/20/2024: Weight: 237, BMI: 33. Patient up 3 pounds. SECA reviewed, reveals fat loss with maintenance of muscle mass. Patient feels clothing is fitting better, unsure as to why fat mass would be up. Discussed the importance of adequate nutrition in the setting of GLP-1 induced appetite suppression in terms of protein/calorie intake. Discussed that poor caloric intake can result in storage fat mass, patient demonstrates understanding. Plan to increase dose of Wegovy to 1.7 mg SC weekly (patient already picked up) and follow-up in 1 month. #HTN: BP elevated at 150/70. Currently taking amlodipine 5 mg once daily. Has been prescribed 10 mg dose in the past, however is not currently taking this. He is encouraged to follow-up with his primary care provider to discuss antihypertensive dosing. 07/16/2024: Weight: 234, BMI: 32.6. SECA reviewed, reveals 2 pounds of fat gain as well as 1 pound loss in the skin. Patient up half an inch in waist circumference. Patient is encouraged to continue practicing portion control and prioritizing intake of protein, vegetables, fruits, whole grains, etc. Recommending continued walking with added strength training 2-3 times weekly. Plan to increase dose of Wegovy to 1 mg SC weekly and follow-up in 1 month. 06/11/2024: Weight: 233, BMI: 32. Patient down 5 pounds with lifestyle changes alone, patient congratulated on progress.SECA reviewed reveals 3 pounds of fat loss and maintenance of muscle mass. The patient is encouraged to continue prioritizing healthy foods, and limiting unhealthy foods such as fats, carbs, and added sugars. Recommending increased water intake, goal 60 to 80 ounces/day. As the patient has been following with us x 6 months (establish care 11/30/2023) plan to resubmit Rx for Wegovy 0.5 mg SC weekly to insurance company. Reviewed expectations for PA process/insurance coverage. 04/30/2024: Weight: 238, BMI: 33.19. SECA reviewed reveals fat loss with maintenance of muscle mass. The patient is encouraged to continue with his physical activity and making conscientious diet choices. Patient's BP elevated in office today at 158/82, per patient he was recently started on a new medication. Upon questioning, he realized he has not been taking his blood pressure medication. He is encouraged to restart his blood pressure medication amlodipine and take as prescribed. Plan to continue with an office compounded semaglutide 1 mg SC weekly. Will resubmit to insurance at the end of April as at that point the patient will have been following with us for more than 6 consecutive months. 04/02/2024: Weight 242, BMI 33.7. SECA reviewed. Reviewed goals for implementing sustainable lifestyle changes. Patient is encouraged to continue with increased protein intake. Recommending he continue to prepare his own meals. Discussed goal of implementing weight training with proper safety/body mechanics twice-weekly. As it has been 3 consecutive months of commitment to lifestyle changes, Rx for Wegovy 1 mg SC weekly sent to pharmacy. Patient is educated on proper use and side effects. All questions answered to the patient's satisfaction. Patient demonstrates understanding of diagnosis and treatments discussed. Follow-up in 4 weeks, sooner should any questions/concerns arise. Case discussed with collaborating physician Derik Smith who has reviewed the assessment/plan. Chart, medications, labs, and vital signs reviewed. Dictation completed with the use of dotloop voice recognition software, prone to medical misidentifications and grammatical errors. All errors are unintentional. Although the practitioner does try to identify and correct errors, some may be present. Please do not hesitate to contact the practitioner for clarification. Total time spent was 30 minutes with >50% on coordination of care and patient education. 09/18/2024 Elevated lipids (ICD-10 - E78.5) Paulino is a 44-year-old male with a PMH of HTN that presents for weight management follow-up. Patient establish care in November at which time his weight was 249. Reviewed [facility] holistic and medical approach to weight loss with emphasis on lifestyle modification. 09/18/2024: Weight: 231, BMI: 32.2. Patient down 6 pounds. SECA reviewed. Discussed the importance of continued prioritization of protein intake, goal 80 to 100 g/day. Additionally discussed the importance of continued physical activity as tolerated. Plan to increase dose of Wegovy 2.4 mg SC weekly and follow-up in 1 month. 08/20/2024: Weight: 237, BMI: 33. Patient up 3 pounds. SECA reviewed, reveals fat loss with maintenance of muscle mass. Patient feels clothing is fitting better, unsure as to why fat mass would be up. Discussed the importance of adequate nutrition in the setting of GLP-1 induced appetite suppression in terms of protein/calorie intake. Discussed that poor caloric intake can result in storage fat mass, patient demonstrates understanding. Plan to increase dose of Wegovy to 1.7 mg SC weekly (patient already picked up) and follow-up in 1 month. #HTN: BP elevated at 150/70. Currently taking amlodipine 5 mg once daily. Has been prescribed 10 mg dose in the past, however is not currently taking this. He is encouraged to follow-up with his primary care provider to discuss antihypertensive dosing. 07/16/2024: Weight: 234, BMI: 32.6. SECA reviewed, reveals 2 pounds of fat gain as well as 1 pound loss in the skin. Patient up half an inch in waist circumference. Patient is encouraged to continue practicing portion control and prioritizing intake of protein, vegetables, fruits, whole grains, etc. Recommending continued walking with added strength training 2-3 times weekly. Plan to increase dose of Wegovy to 1 mg SC weekly and follow-up in 1 month. 06/11/2024: Weight: 233, BMI: 32. Patient down 5 pounds with lifestyle changes alone, patient congratulated on progress.SECA reviewed reveals 3 pounds of fat loss and maintenance of muscle mass. The patient is encouraged to continue prioritizing healthy foods, and limiting unhealthy foods such as fats, carbs, and added sugars. Recommending increased water intake, goal 60 to 80 ounces/day. As the patient has been following with us x 6 months (establish care 11/30/2023) plan to resubmit Rx for Wegovy 0.5 mg SC weekly to insurance company. Reviewed expectations for PA process/insurance coverage. 04/30/2024: Weight: 238, BMI: 33.19. SECA reviewed reveals fat loss with maintenance of muscle mass. The patient is encouraged to continue with his physical activity and making conscientious diet choices. Patient's BP elevated in office today at 158/82, per patient he was recently started on a new medication. Upon questioning, he realized he has not been taking his blood pressure medication. He is encouraged to restart his blood pressure medication amlodipine and take as prescribed. Plan to continue with an office compounded semaglutide 1 mg SC weekly. Will resubmit to insurance at the end of April as at that point the patient will have been following with us for more than 6 consecutive months. 04/02/2024: Weight 242, BMI 33.7. SECA reviewed. Reviewed goals for implementing sustainable lifestyle changes. Patient is encouraged to continue with increased protein intake. Recommending he continue to prepare his own meals. Discussed goal of implementing weight training with proper safety/body mechanics twice-weekly. As it has been 3 consecutive months of commitment to lifestyle changes, Rx for Wegovy 1 mg SC weekly sent to pharmacy. Patient is educated on proper use and side effects. All questions answered to the patient's satisfaction. Patient demonstrates understanding of diagnosis and treatments discussed. Follow-up in 4 weeks, sooner should any questions/concerns arise. Case discussed with collaborating physician Derik Smith who has reviewed the assessment/plan. Chart, medications, labs, and vital signs reviewed. Dictation completed with the use of dotloop voice recognition software, prone to medical misidentifications and grammatical errors. All errors are unintentional. Although the practitioner does try to identify and correct errors, some may be present. Please do not hesitate to contact the practitioner for clarification. Total time spent was 30 minutes with >50% on coordination of care and patient education. 09/18/2024 Dietary counseling and surveillance (ICD-10 - Z71.3) Paulino is a 44-year-old male with a PMH of HTN that presents for weight management follow-up. Patient establish care in November at which time his weight was 249. Reviewed [facility] holistic and medical approach to weight loss with emphasis on lifestyle modification. 09/18/2024: Weight: 231, BMI: 32.2. Patient down 6 pounds. SECA reviewed. Discussed the importance of continued prioritization of protein intake, goal 80 to 100 g/day. Additionally discussed the importance of continued physical activity as tolerated. Plan to increase dose of Wegovy 2.4 mg SC weekly and follow-up in 1 month. 08/20/2024: Weight: 237, BMI: 33. Patient up 3 pounds. SECA reviewed, reveals fat loss with maintenance of muscle mass. Patient feels clothing is fitting better, unsure as to why fat mass would be up. Discussed the importance of adequate nutrition in the setting of GLP-1 induced appetite suppression in terms of protein/calorie intake. Discussed that poor caloric intake can result in storage fat mass, patient demonstrates understanding. Plan to increase dose of Wegovy to 1.7 mg SC weekly (patient already picked up) and follow-up in 1 month. #HTN: BP elevated at 150/70. Currently taking amlodipine 5 mg once daily. Has been prescribed 10 mg dose in the past, however is not currently taking this. He is encouraged to follow-up with his primary care provider to discuss antihypertensive dosing. 07/16/2024: Weight: 234, BMI: 32.6. SECA reviewed, reveals 2 pounds of fat gain as well as 1 pound loss in the skin. Patient up half an inch in waist circumference. Patient is encouraged to continue practicing portion control and prioritizing intake of protein, vegetables, fruits, whole grains, etc. Recommending continued walking with added strength training 2-3 times weekly. Plan to increase dose of Wegovy to 1 mg SC weekly and follow-up in 1 month. 06/11/2024: Weight: 233, BMI: 32. Patient down 5 pounds with lifestyle changes alone, patient congratulated on progress.SECA reviewed reveals 3 pounds of fat loss and maintenance of muscle mass. The patient is encouraged to continue prioritizing healthy foods, and limiting unhealthy foods such as fats, carbs, and added sugars. Recommending increased water intake, goal 60 to 80 ounces/day. As the patient has been following with us x 6 months (establish care 11/30/2023) plan to resubmit Rx for Wegovy 0.5 mg SC weekly to insurance company. Reviewed expectations for PA process/insurance coverage. 04/30/2024: Weight: 238, BMI: 33.19. SECA reviewed reveals fat loss with maintenance of muscle mass. The patient is encouraged to continue with his physical activity and making conscientious diet choices. Patient's BP elevated in office today at 158/82, per patient he was recently started on a new medication. Upon questioning, he realized he has not been taking his blood pressure medication. He is encouraged to restart his blood pressure medication amlodipine and take as prescribed. Plan to continue with an office compounded semaglutide 1 mg SC weekly. Will resubmit to insurance at the end of April as at that point the patient will have been following with us for more than 6 consecutive months. 04/02/2024: Weight 242, BMI 33.7. SECA reviewed. Reviewed goals for implementing sustainable lifestyle changes. Patient is encouraged to continue with increased protein intake. Recommending he continue to prepare his own meals. Discussed goal of implementing weight training with proper safety/body mechanics twice-weekly. As it has been 3 consecutive months of commitment to lifestyle changes, Rx for Wegovy 1 mg SC weekly sent to pharmacy. Patient is educated on proper use and side effects. All questions answered to the patient's satisfaction. Patient demonstrates understanding of diagnosis and treatments discussed. Follow-up in 4 weeks, sooner should any questions/concerns arise. Case discussed with collaborating physician eDrik Smith who has reviewed the assessment/plan. Chart, medications, labs, and vital signs reviewed. Dictation completed with the use of dotloop voice recognition software, prone to medical misidentifications and grammatical errors. All errors are unintentional. Although the practitioner does try to identify and correct errors, some may be present. Please do not hesitate to contact the practitioner for clarification. Total time spent was 30 minutes with >50% on coordination of care and patient education. PLAN OF TREATMENT Medication Medication Name Sig Start Date Stop Date Notes Wegovy 2.4 MG/0.75ML Inject 2.4mg Subcutaneous weekly for 30 days 0.25mg dose received in office Next Appt Details Provider Name:ALCIDES LAFLEUR Kem, 10/22/2024 01:30:00 PM, [address] [facility] [address], [place], [address], Progress Notes * Paulino PABONDOB:1980 (44 yo M)Acc No.[id number]:09/18/2024 Patient:??Paulino PABON Provider:??ALCIDES LING PA-C :1980?Age:44 Y?Sex:Kristina le Date:09/18/2024 Address:[address] [place], [place] [id number] Subjective: * Chief Complaints: * ?1. Patient is here for weight management follow up. SECA done. Previous weight was 237. Today the patient weight is 231. He is complaining of back pain for 2 weeks now. * HPI: ?Constitutional:? Paulino is a 44-year-old male with a PMH of HTN, HLD that presents for weight management follow-up. Currently taking Wegovy 1.7mg SC weekly with compliance. Reports adequate appetite suppression. Denies side effects of nausea, vomiting, or abdominal pain. Reports constipation managed with as needed laxative. Feels water intake is consistent. Averaging 4 bottles/day. Trying to incorporate hydration packets. Averaging 2 meals/day - lunch and dinner. States he is practicing portion control and prioritizing intake of veggies and protein. Primary sources of protein include chicken, shrimp, PB, protein bars, etc. He continues to stay physically active while working with his son. Doing [employer] ball at least three times- weekly. Did recently hurt/pull muscle in his back so physical activity has been decreased over the last two weeks. * ROS:?All Other Systems:?Review of Systems (ROS)??All others negative except those mentioned in HPI.? * Medical History:??Essential (primary) hypertension, Elevated cholesterol. * Family History:??Father: ali ve.??Mother: alive.??1 brother(s) . .?? * Medications:??Taking Ondanse anthony HCl 4 MG Tablet 1 tablet Orally every 8 hours , Taking amLODIPine Besylate 10 MG Tablet 1 tablet Orally Once a day , Taking Atorvastatin Calcium 20 MG Tablet Oral , Taking Wegovy 1.7 MG/0.75ML Solution Auto-injector inject 1.7mg Subcutaneous weekly , Not-Taking Wegovy 1 MG/0.5ML Solution Auto-injector Inject 1mg Subcutaneous weekly , Notes to Pharmacist: 0.25mg dose received in office, Not-Taking Wegovy 1 MG/0.5ML Solution Auto-injector inject 1mg Subcutaneous weekly , Notes to Pharmacist: Received previous doses at recommended intervals in office., Medication List reviewed and reconciled with the patient * Allergies:??N.K.D.A. Objective: * Vitals:??HR:91/min, BP:164/8 0mm Hg, Wt:231lbs, BMI:32.21Index, Ht: 71 in, Oxygen sat %:96%. * Physical Examination:?General: Age appropriate, well-appearing 44-year-old male in no acute distress, speaking in full sentences without respiratory compromise. Well groomed, well developed. Alert, interactive. ?Skin: Warm, dry and intact. No lesions/rashes/erythema. ?HEENT: Normocephalic/atraumatic. ?CV: RRR. ?Lungs: Clear to auscultation bilaterally. ?Neuro: CN II-XII grossly intact. Steady gait with non-assisted ambulation observed. ?Psych: Stable mood and affect. Assessment: * Assessment: 1.??Obesity (BMI 30-39.9) - E66.9 (Primary)??2.??BMI 32.0-32.9,adult - Z68.32??3.??Essential (primary) hypertension - I10??4.??Elevated lipids - E78.5?? Paulino is a 44-year-old male with a PMH of HTN that presents for weight management follow-up. Patient establish care in November at which time his weight was 249. Reviewed [facility] holistic and medical approach to weight loss with emphasis on lifestyle modification. 09/18/2024: Weight: 231, BMI: 32.2. Patient down 6 pounds. SECA reviewed. Discussed the importance of continued prioritization of protein intake, goal 80 to 100 g/day. Additionally discussed the importance of continued physical activity as tolerated. Plan to increase dose of Wegovy 2.4 mg SC weekly and follow-up in 1 month. 08/20/2024: Weight: 237, BMI: 33. Patient up 3 pounds. SECA reviewed, reveals fat loss with maintenance of muscle mass. Patient feels clothing is fitting better, unsure as to why fat mass would be up. Discussed the importance of adequate nutrition in the setting of GLP-1 induced appetite suppression in terms of protein/calorie intake. Discussed that poor caloric intake can result in storage fat mass, patient demonstrates understanding. Plan to increase dose of Wegovy to 1.7 mg SC weekly (patient already picked up) and follow-up in 1 month. #HTN: BP elevated at 150/70. Currently taking amlodipine 5 mg once daily. Has been prescribed 10 mg dose in the past, however is not currently taking this. He is encouraged to follow-up with his primary care provider to discuss antihypertensive dosing. 07/16/2024: Weight: 234, BMI: 32.6. SECA reviewed, reveals 2 pounds of fat gain as well as 1 pound loss in the skin. Patient up half an inch in waist circumference. Patient is encouraged to continue practicing portion control and prioritizing intake of protein, vegetables, fruits, whole grains, etc. Recommending continued walking with added strength training 2-3 times weekly. Plan to increase dose of Wegovy to 1 mg SC weekly and follow-up in 1 month. 06/11/2024: Weight: 233, BMI: 32. Patient down 5 pounds with lifestyle changes alone, patient congratulated on progress.SECA reviewed reveals 3 pounds of fat loss and maintenance of muscle mass. The patient is encouraged to continue prioritizing healthy foods, and limiting unhealthy foods such as fats, carbs, and added sugars. Recommending increased water intake, goal 60 to 80 ounces/day. As the patient has been following with us x 6 months (establish care 11/30/2023) plan to resubmit Rx for Wegovy 0.5 mg SC weekly to insurance company. Reviewed expectations for PA process/insurance coverage. 04/30/2024: Weight: 238, BMI: 33.19. SECA reviewed reveals fat loss with maintenance of muscle mass. The patient is encouraged to continue with his physical activity and making conscientious diet choices. Patient's BP elevated in office today at 158/82, per patient he was recently started on a new medication. Upon questioning, he realized he has not been taking his blood pressure medication. He is encouraged to restart his blood pressure medication amlodipine and take as prescribed. Plan to continue with an office compounded semaglutide 1 mg SC weekly. Will resubmit to insurance at the end of April as at that point the patient will have been following with us for more than 6 consecutive months. 04/02/2024: Weight 242, BMI 33.7. SECA reviewed. Reviewed goals for implementing sustainable lifestyle changes. Patient is encouraged to continue with increased protein intake. Recommending he continue to prepare his own meals. Discussed goal of implementing weight training with proper safety/body mechanics twice-weekly. As it has been 3 consecutive months of commitment to lifestyle changes, Rx for Wegovy 1 mg SC weekly sent to pharmacy. Patient is educated on proper use and side effects. All questions answered to the patient's satisfaction. Patient demonstrates understanding of diagnosis and treatments discussed. Follow-up in 4 weeks, sooner should any questions/concerns arise. Case discussed with collaborating physician Derik Smith who has reviewed the assessment/plan. Chart, medications, labs, and vital signs reviewed. Dictation completed with the use of dotloop voice recognition software, prone to medical misidentifications and grammatical errors. All errors are unintentional. Although the practitioner does try to identify and correct errors, some may be present. Please do not hesitate to contact the practitioner for clarification. Total time spent was 30 minutes with >50% on coordination of care and patient education. Plan: * Treatment: * Procedure Codes:??31714 P/M ASSOCIATE PROGRAM MANAGER, INDIV 15 MIN * Images: Billing Information: * Visit Code:?? 12737 Office Visit, Est Pt., Level 4. Modifiers: 25, SA * Procedure Codes:?? 87147 P/M ASSOCIATE PROGRAM MANAGER, INDIV 15 MIN. * Sign off status: Completed true * Provider:??ALCIDES LING PA-C Date:?? 09/18/2024 History and Physical Notes * HPI (History of Present Illness) Category Sub-Category Detail Notes Category Not es Constitutional Paulino is a [age]-year-old male with a PMH of HTN, HLD that presents for weight management follow-up. Currently taking Wegovy 1.7mg SC weekly with compliance. Reports adequate appetite suppression. Denies side effects of nausea, vomiting, or abdominal pain. Reports constipation managed with as needed laxative. Feels water intake is consistent. Averaging 4 bottles/day. Trying to incorporate hydration packets. Averaging 2 meals/day - lunch and dinner. States he is practicing portion control and prioritizing intake of veggies and protein. Primary sources of protein include chicken, shrimp, PB, protein bars, etc. He continues to stay physically active while working with his son. Doing [employer] ball at least three times-weekly. Did recently hurt/pull muscle in his back so physical activity has been decreased over the last two weeks. Physical Examination Category Sub-Category Detail Notes Section Note s General: Age appropriate, well-appearing 44-year-old male in no acute distress, speaking in full sentences without respiratory compromise. Well groomed, well developed. Alert, interactive. Skin: Warm, dry and intact. No lesions/rashes/erythema. HEENT: Normocephalic/atraumatic. CV: RRR. Lungs: Clear to auscultation bilaterally. Neuro: CN II-XII grossly intact. Steady gait with non-assisted ambulation observed. Psych: Stable mood and affect.
--- OUTSIDE RECORDS SUMMARY | 2024-09-23 15:50 | XMS_ITS | Encounter Summary ---
Author Organization [facility] Address [address] [place] [address] Care Team Providers Care Community Placement Worker Name Role Phone Clemente Naidu MD Primary Care Provider [phone] Encounter Details Date Type Department Care Team (Late st Contact Info) Description 05/16/2024 9:01 AM EDT Hospital Encounter TH HISTORIC ENCOUNTERS EASTERN CONVERSION ONLY Noelle Watson PA [address] [place] [address] Social History Tobacco Use Types Packs/Day Years Used Date Smoking Tobacco: Never Assessed Sex and Gender Information Value Date Recorded Sex Assigned at Not on file Legal Sex Male 7:17 AM EST Gender Identity Not on file Sexual Orientation Not on file documented as of this encounter Last Filed Vital Signs Vital Sign Reading Time Taken Comments Blood Pressure 152/100 05/16/2024 9:08 AM EDT Pulse 96 05/16/2024 9:08 AM EDT Temperature - - Respiratory Rate - - Oxygen Saturation - - Inhaled Oxygen Concentration - - Weight 107 kg (236 lb) 05/16/2024 9:08 AM EDT Height 177.8 cm (5' 10 ) 05/16/2024 9:08 AM EDT Body Mass Index 33.86 05/16/2024 9:08 AM EDT documented in this encounter Progress Notes * MOLINA Dumont - 05/16/2024 9:00 AM EDT Images from the original note were not included. Progress Notes by Noelle Watson PA-C at 05/16/2024 9:00 AM Author: Noelle Watson PA-C Service: -- Author Type: Physician [facility]ognos Filed: 05/16/2024 9:59 AM Encounter Date: 05/16/2024 Status: Signed Catering Coordinator: Noelle Watson PA-C (Physician [facility]ognos) Cosigner: Consuelo Lorenz DO at 05/20/2024 9:[address] Naidu, Thank you very much for referring this patient for consultation. HPI: 43-year-old male who was referred to our hematology clinic by PCP team for furtherevaluation of anemia. Records indicate presence of mild anemia as far back as 2013. Patient shares with me that he had a gastric sleeve surgery in 2000 at [facility]. He is not on any supplementation. He denies any clinical bleeding or black stools. His brother also has anemia. He has insomnia and takes gummies to help him sleep. He denies any excessive fatigue, unintentionalweight loss, night sweats, fever or chills, swollen glands, headache, dizziness, shortness of breath, GI sxs. ROS: GENERAL: No malaise, significant weight loss or fever NECK: No lumps, goiter, pain or significant neck swelling RESPIRATORY: No cough, wheezing or shortness of breath CARDIOVASCULAR: No chest pain, leg swelling or palpitations GI: No abdominal discomfort, blood in stools or black stools MUSCULOSKELETAL: No joint pain or swelling, back pain, or muscle pain. HEMATOLOGY/LYMPHOLOGY No prolonged bleeding, easy bruisability or swollen nodes Other Systems review is non contributory PAST MEDICAL HISTORY: Active Ambulatory Problems Diagnosis Date Noted ? No Active Ambulatory Problems Resolved Ambulatory Problems Diagnosis Date Noted ? No Resolved Ambulatory Problems No Additional Past Medical History ? Hyperlipemia [E78.5] 07/29/2015 ? Morbid obesity with BMI of 45.0-49.9, adult (HCC) [E66.01, Z68.42] 08/05/2013 ? Obstructive sleep apnea severe AHI 60 [G47.33] 07/29/2013 NOT TREATED ? Insomnia [G47.00] 12/14/2010 ? HTN (hypertension), benign [I10] 10/02/2009 PAST SURGICAL HISTORY: Past Surgical History: Procedure Laterality Date ? gastric sleeve 2000 SOCIAL HISTORY: Social History Tobacco Use ? Smoking status: Never ? Smokeless tobacco: Not on file Substance Use Topics ? Alcohol use: Yes Comment: Occasionally He lives with is and his 3 sons. FAMILY HISTORY: Family History Problem Relation Age of Onset ? Skin cancer Father Brother has anemia MEDICATIONS: Current Outpatient Medications: ? amLODIPine (NORVASC) tablet 5 mg, Take 1 tablet (5 mg total) by mouth daily., Disp: , Rfl: ? atorvastatin (LIPITOR) tablet 20 mg, Take 1 tablet (20 mg total) by mouth daily., Disp: , Rfl: You are allergic to the following Date Reviewed: 05/16/2024 Allergen Reactions Lisinopril Not Noted PHYSICAL EXAM: BP (!) 152/100 Pulse 96 Temp 98.6 ??F (37 ??C) Ht 5' 10 (1.778 m) Wt 107 kg (236 lb) SpO2 100% BMI 33.86 kg/m?? APPEARANCE: Alert and in no acute distress EYES: PERRL, conjunctiva pink and sclera are Normal without icterus ORAL CAVITY: No erythema or exudates NECK: Neck supple, no adenopathy, HEART: RRR with normal S1 and S2, no murmurs, no gallops, no JVD appreciated LUNG: clear to auscultation bilaterally LYMPH NODES: No palpable superficial adenopathy ABDOMEN: Bowel sounds normoactive, no bruits, soft, non-tender, without organomegaly or palpable masses EXTREMITIES: Extremities warm and well perfused without clubbing, cyanosis, rash or edema NEURO: Oriented X 3, no focal weakness; sensation is normal LABS: HGB HISTORY: Testing: Review of Lab results , interpreted Review of External Documentation Tests ordered - CBCd, CMP, B12, folate, Iron studies, EPO, Haptoglobin today; CBCd + Iron studies + B12/FOlate in [address](R) 1. Microcytic anemia MICROCYTIC ANEMIA 2. S/P gastric sleeve procedure HISTORY OF SLEEVE GASTRECTOMY PLAN: Anemia; s/p gastric sleeve: -Mild anemia since 2013 in the setting of gastric sleeve in 2000 -Check for any nutritional deficiencies -I will check EPO + Haptolgobin -He has normal renal, liver, and thyroid functions -No clinical bleeding or black stools -Asymptomatic -I will call him with results -FOV in 6 months with labs prior (lab slip provided) to ensure stability; RTO sooner prn Walter, Noelle P, PA-C Cc: Clemente Naidu MD Sign: Noelle Watson PA-C Hematology/Oncology [facility] [phone] documented in this encounter Plan of Treatment Upcoming Encounters Date Type Department Care Team (Late st Contact Info) Description 11/07/2024 9:00 AM EDT Office Visit [facility] Hematology Oncology [address] [place] [address] Noelle Watson PA [address] [place] [address] 11/27/2024 8:15 AM EDT [facility] [address] [place] [phone] Clemente Naidu MD [address] [place] [id number] documented as of this encounter Procedures Procedure Name Priority Date/Time Associated Diagnosis Comments ..MISCELLANEOUS REFERENCE LAB TEST 05/16/2024 documented in this encounter Results * Miscellaneous reference lab test (05/16/2024) us Provider Onbase MD LAB BLOOD ORDERABLES Final Re sult documented in this encounter Visit Diagnoses Not on filedocumented in this encounter Care Teams Community Placement Worker Relationship Specialty Start Date End Date Clemente Naidu MD [address] [place] [address] PCP - General 04/15/24 documented as of this encounter
--- OUTSIDE RECORDS SUMMARY | 2024-09-23 15:50 | XMS_ITS ---
Author Organization [facility] Address [address] [place] [address] Care Team Providers Care Supervisor [employer] Name Role Phone ALCIDES LING [phone] REASON FOR VISIT Refills MEDICATIONS Medication SIG (Take, Route, Fr equency, Duration) Notes Start Date End Date Status Wegovy 1.7 MG/0.75ML Inject 1.7mg Subcut aneous weekly for 30 days 09/05/2024 Active Encounters Encounter Location Date Provider Diagnosis [facility] [address] [facility] [address] [place] [address] 09/05/2024 ALCIDES LING PLAN OF TREATMENT Medication Medication Name Sig Start Date Stop Date Notes Wegovy 1.7 MG/0.75ML Inject 1.7mg Subcut aneous weekly for 30 days 09/05/2024 Next Appt Details Provider Name:ALCIDES Brownlee, 10/22/2024 01:30:00 PM, [address] [facility] [address], [place], [address], Progress Notes * Paulino PABONDOB:1980 (43 yo M)Acc No.[id number]:09/05/2024 Patient:??Paulino PABON :1980?Age:43 Y?Sex:Kristina wick Address:[address] [place] [phone] * Refills?? Start Wegovy Solution Auto-injector, 1.7 MG/0.75ML, Subcutaneous, 4 Pen Needle, Inject 1.7mg, weekly, 30 days, Refills=0 * true * Date:??
--- OUTSIDE RECORDS SUMMARY | 2024-09-23 15:50 | XMS_ITS | Clinical Summary ---
Author Organization [facility] Address [address] [place] [address] Care Team Providers Care Radio Despatcher Name Role Phone Clemente Naidu MD Primary Care Provider [phone] Allergies Active Allergy Reactions Criticality Noted Date Comments Lisinopril 05/16/2024 Medications Medication Sig Dispensed Refills Start Date End Date Status amLODIPine (NORVASC) tablet 5 mg Take 1 tablet (5 mg total) by mouth daily. 0 Active atorvastatin (LIPITOR) tablet 20 mg Take 1 tablet (20 mg total) by mouth daily. 0 Active Family History Medical History Relation Name Comments Skin cancer Father Relation Name Status Comments Father Social History Tobacco Use Types Packs/Day Years Used Date Smoking Tobacco: Never Tobacco Cessation:Counseling Given: Not Answered Alcohol Use Standard Drinks/Week Comments Yes 0 (1 standard drink = 0.6 oz pur e alcohol) Occasionally Sex and Gender Information Value Date Recorded Sex Assigned at Male 05/16/2024 9:49 AM EDT Gender Identity Not on file Sexual Orientation Not on file Job Start Date Occupation Industry Not on file Not on file Not on file Last Filed Vital Signs Vital Sign Reading Time Taken Comments Blood Pressure 152/100 05/16/2024 9:08 AM EDT Pulse 96 05/16/2024 9:08 AM EDT Temperature 37 ??C (98.6 ??F) 05/16/2024 9:08 AM EDT Respiratory Rate - - Oxygen Saturation 100% 05/16/2024 9:08 AM EDT Inhaled Oxygen Concentration - - Weight 107 kg (236 lb) 05/16/2024 9:08 AM EDT Height 177.8 cm (5' 10 ) 05/16/2024 9:08 AM EDT Body Mass Index 33.86 05/16/2024 9:08 AM EDT Plan of Treatment Health Maintenance Due Date Last Done Comments Hepatitis B Vaccines (1 of 3 - 3-dose series) 1980 Hepatitis C Screening 1980 COVID-19 Vaccine (#1) 03/16/1982 Depression Screening 1993 Preventative Health Evaluation 1999 Influenza Vaccine (#1) 2024 10/14/2019 DTap / Tdap / Td (3 - Td or Tdap) 10/13/2029 10/14/2019, 11/28/2008 Pneumococcal Vaccine Aged Out No long er eligible based on patient's age to complete this topic RSV Ped < 20 months Aged Out No longe r eligible based on patient's age to complete this topic Insurance Payer Benefit Plan / Group Subscriber ID Effective Dates Phone Address [facility] [id number] [address]24-[address] [address] HMO Care Teams Radio Despatcher Relationship Specialty Start Date End Date Clemente Naidu MD PCP - General Internal Medicine 04/15/24
--- OUTSIDE RECORDS SUMMARY | 2024-09-23 15:51 | XMS_ITS ---
Author Organization [facility] Address [address] [place] [address] Care Team Providers Care Quail Farmer Name Role Phone ALCIDES LING Unavailable [phone] ALLERGIES No Known Allergies REASON FOR VISIT Patient is here for weight management follow up. SECA done. Previous weight was 234. Today the patient weight is 237. He has no complaints MEDICATIONS Medication SIG (Take, Route, Frequency, Duration) Notes Start Date End Date Status Ondansetron HCl 4 MG 1 tablet Orally every 8 hours for 30 days 11/30/2023 Active Wegovy 1 MG/0.5ML Inject 1mg Subcutaneous weekly for 30 days 0.25mg dose received in office Active Wegovy 1.7 MG/0.75ML inject 1.7mg Subcutaneous weekly for 30 days 08/15/2024 Active Atorvastatin Calcium 20 MG Oral for 30 Days Active amLODIPine Besylate 10 MG 1 tablet Orally Once a day for 90 days 11/30/2023 Active Wegovy 1 MG/0.5ML inject 1mg Subcutaneous weekly for 30 days Received previous doses at recommended intervals in office. 04/02/2024 Not-Taking VITAL SIGNS Blood pressure systolic 150 mm Hg 08/20/19 25 Blood pressure diastolic 70 mm Hg 025 Heart Rate 89 /min 08/20/2024 Height 71 in 08/20/2024 Weight 237 lbs 08/20/2024 BMI 33.05 kg/m2 08/20/2024 Oximetry 97 % 08/20/2024 Encounters Encounter Location Date Provider Diagnosis [address] [address] 08/20/2024 ALCIDES LING BMI 33.0-33.9,adult Z68.33 ; Essential (primary) hypertension I10 ; Obesity (BMI 30-39.9) E66.9 and Elevated lipids E78.5 ASSESSMENTS Encounter Date Diagnosis Assessment Notes Treatment Notes Treatment Clinical Notes Section Notes 08/20/2024 BMI 33.0-33.9,adult (ICD-10 - Z68.33) Paulino is a 43-year-old male with a PMH of HTN that presents for weight management follow-up. Patient establish care in November at which time his weight was 249. Reviewed [facility] holistic and medical approach to weight loss with emphasis on lifestyle modification. 08/20/2024: Weight: 237, BMI: 33. Patient up [...] reviewed. Dictation completed with the use of [employer] voice recognition software, prone to medical misidentifications and grammatical errors. All errors are unintentional. Although the practitioner does try to identify and correct errors, some may be present. Please do not hesitate to contact the practitioner for clarification. Total time spent was 30 minutes with >50% on coordination of care and patient education. 08/20/2024 Essential (primary) hypertension (ICD-10 - I10) Paulino is a 43-year-old male with a PMH of HTN that presents for weight management follow-up. Patient establish care in November at which time his weight was 249. Reviewed [facility] holistic and medical approach to weight loss with emphasis on lifestyle modification. 08/20/2024: Weight: 237, BMI: 33. Patient up [...] reviewed. Dictation completed with the use of [employer] voice recognition software, prone to medical misidentifications and grammatical errors. All errors are unintentional. Although the practitioner does try to identify and correct errors, some may be present. Please do not hesitate to contact the practitioner for clarification. Total time spent was 30 minutes with >50% on coordination of care and patient education. 08/20/2024 Obesity (BMI 30-39.9) (ICD-10 - E66.9) Paulino is a 43-year-old male with a PMH of HTN that presents for weight management follow-up. Patient establish care in November at which time his weight was 249. Reviewed [facility] holistic and medical approach to weight loss with emphasis on lifestyle modification. 08/20/2024: Weight: 237, BMI: 33. Patient up [...] reviewed. Dictation completed with the use of [employer] voice recognition software, prone to medical misidentifications and grammatical errors. All errors are unintentional. Although the practitioner does try to identify and correct errors, some may be present. Please do not hesitate to contact the practitioner for clarification. Total time spent was 30 minutes with >50% on coordination of care and patient education. 08/20/2024 Elevated lipids (ICD-10 - E78.5) Paulino is a 43-year-old male with a PMH of HTN that presents for weight management follow-up. Patient establish care in November at which time his weight was 249. Reviewed [facility] holistic and medical approach to weight loss with emphasis on lifestyle modification. 08/20/2024: Weight: 237, BMI: 33. Patient up [...] reviewed. Dictation completed with the use of [employer] voice recognition software, prone to medical misidentifications [...] Sig Start Date Stop Date Notes Wegovy 1 MG/0.5ML Inject 1mg Subcutane ous weekly for 30 days 0.25mg dose received in office Next Appt Details Provider Name:ALCIDES Brownlee, 10/22/2024 01:30:00 PM, [address] [place] [address], [phone], Progress Notes * Paulino PABONDOB:1980 (43 yo M)Acc No.[id number]:08/20/2024 Patient:??PEPPER Paulino Provider:??ALCIDES LING PA-C :1980?Age:43 Y?Sex:Ma le Date:08/20/2024 Address:[address] [place], [place] [id number] Subjective: * Chief Complaints: * ?1. Patient is here for weight management follow up. SECA done. Previous weight was 234. Today the patient weight is 237. He has no complaints. * HPI: ?Constitutional:? Paulino is a 43-year-old male with a PMH of HTN, HLD that presents for weight management follow-up. Currently taking Wegovy 1 mg SC weekly with compliance. Reports moderate appetite suppression. Denies side effects of nausea, vomiting, or abdominal pain. Reports constipation managed with as needed laxative. Feels water intake is improved, averaging 4 bottles/day. Trying to incorporate hydration packets. Averaging 2 meals/day. States he is practicing portion control and prioritizing intake of veggies and protein. Primary sources of protein include chicken, shrimp, PB, protein bars, etc. He continues to stay physically active while working with his son. Doing volley ball at least twice-weekly. 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 * ROS:?All Other Systems:?Review of Systems (ROS)??All others negative except those mentioned in HPI.? * Medical History:??Essential (primary) hypertension, Elevated cholesterol. * Surgical History:??Denies Tani macias Surgical History. * Hospitalization/Major Diagno stic Procedure:??Denies Past Hospitalization. * Family History:??Father: ali ve.??Mother: alive.??1 brother(s) [...] with the patient * Allergies:??N.K.D.A. Objective: * Vitals:??HR:89/min, BP:150/7 0mm Hg, Wt:237lbs, BMI:33.05Index, Ht: 71 in, Oxygen sat %:97%. * Physical Examination:?General: Age appropriate, well-appearing 43-year-old male in no acute distress, speaking in full sentences without respiratory compromise. Well groomed, well developed. Alert, interactive. ?Skin: Warm, dry and intact. No lesions/rashes/erythema. ?HEENT: Normocephalic/atraumatic. ?CV: RRR. ?Lungs: Clear to auscultation bilaterally. ?Neuro: CN II-XII grossly intact. Steady gait with non-assisted ambulation observed. ?Psych: Stable mood and affect. Assessment: * Assessment: 1.??Obesity (BMI 30-39.9) - E66.9 (Primary)??2.??BMI 33.0-33.9,adult - Z68.33??3.??Essential (primary) hypertension - I10??4.??Elevated lipids - E78.5?? Paulino is a 43-year-old male with a PMH of HTN that presents for weight management follow-up. Patient establish care in November at which time his weight was 249. Reviewed [facility] holistic and medical approach to weight loss with emphasis on lifestyle modification. 08/20/2024: Weight: 237, BMI: 33. Patient up [...] reviewed. Dictation completed with the use of [employer] voice recognition software, prone to medical misidentifications and grammatical errors. All errors are unintentional. Although the practitioner does try to identify and correct errors, some may be present. Please do not hesitate to contact the practitioner for clarification. Total time spent was 30 minutes with >50% on coordination of care and patient education. Plan: * Treatment: * Procedure Codes:??68404 P/M EVENT EXECUTIVE, INDIV 15 MIN * Images: Billing Information: * Visit Code:?? 85809 Office Visit, Est Pt., Level 4. * Procedure Codes:?? 70222 P/M EVENT EXECUTIVE, INDIV 15 MIN. * Sign off status: Completed true * Provider:??ALCIDES LING PA-C Date:?? 08/20/2024 History and Physical Notes * HPI (History of Present Illness) Category Sub-Category Detail Notes Category Not es Constitutional Paulino is a [age]-year-old male with a PMH of HTN, HLD that presents for weight management follow-up. Currently taking Wegovy 1 mg SC weekly with compliance. Reports moderate appetite suppression. Denies side effects of nausea, vomiting, or abdominal pain. Reports constipation managed with as needed laxative. Feels water intake is improved, averaging 4 bottles/day. Trying to incorporate hydration packets. Averaging 2 meals/day. States he is practicing portion control and prioritizing intake of veggies and protein. Primary sources of protein include chicken, shrimp, PB, protein bars, etc. He continues to stay physically active while working with his son. Doing volley ball at least twice-weekly. 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 Physical Examination Category Sub-Category Detail Notes Section Note s General: Age appropriate, well-appearing 43-year-old male in no acute distress, speaking in full sentences without respiratory compromise. Well groomed, well developed. Alert, interactive. Skin: Warm, dry and intact. No lesions/rashes/erythema. HEENT: Normocephalic/atraumatic. CV: RRR. Lungs: Clear to auscultation bilaterally. Neuro: CN II-XII grossly intact. Steady gait with non-assisted ambulation observed. Psych: Stable mood and affect.
--- OUTSIDE RECORDS SUMMARY | 2024-09-23 15:51 | XMS_ITS | Clinical Summary ---
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 4 Active Wegovy 1.7 mg/0.75 mL injection pen Inject 1.7 mg under the skin every 7 (seven) days. 5 Active amLODIPine (NORVASC) 10 mg tabletIndicatio ns:HTN (hypertension), benign Take 1 tablet (10 mg total) by mouth 1 (one) time each day. 30 each 5 5 02/27/20 25 Active amLODIPine (NORVASC) 5 mg tablet Take 2 tablets (10 mg total) by mouth 1 (one) time each day. 4 08/30/19 25 Discontinu ed(Reorder ) Active Problems Problem Noted Date Diagnosed Date Screening for metabolic disorder 08/30/2024 Hyperlipemia 07/29/2015 Morbid obesity with BMI of 45.0-49.9, adult 12/2013 Obstructive sleep apnea 07/29/2013 Overview (07/11/2024): NOT TREATED Insomnia 12/14/2010 HTN (hypertension), benign 10/02/2009 Encounters Date Type Department Care Team Description 08/30/2024 3:35 PM EST Lab Draw Station - [address] Screening for metabolic disorder 08/30/2024 3:00 PM EST Office Visit Internal Medicine - [address] [phone] Khushbu Reyes, ULISSES HTN (hypertension), benign (Primary Dx) from Last 3 Months Immunizations Name Administration Dates Next Due Influenza Quadravalent, MDCK , 0.5ml, preservative free (Flucelvax) 6mo and older 10/14/2019 Influenza trivalent, 0.5mL, preservative free (Fluarix; FluLaval; Fluzone) ages 6mo and older (Afluria) 3 years and older 05/31/2016,07/10/2007 Tdap Tetanus diptheria acell ular pertussis (Boostrix; Adacel) 7yo and older 10/14/2019,11/28/2008 Surgical History Surgery Date Site/Laterality Comments OTHER SURGICAL HISTORY PROCEDURE: DENIES PREVIOUS SURGERY OTHER SURGICAL HISTORY 2000 PROCEDURE:gastric sleeve Medical History Medical History Date Comments Hyperlipemia 07/29/2015 DX:Hyperlipemia Family History Medical History Relation Name Comments Breast cancer Aunt paternal Hypertension Brother Basal cell carcinoma Father Skin cancer Father Throat cancer Uncle paternal Relation Name Status Comments Aunt Brother Father Mother Alive Son 1 Alive Son 2 Alive Son 3 Alive Uncle Social History Tobacco Use Types Packs/Day Years Used Date Smoking Tobacco: Never Tobacco Cessation:Counseling Given: Not Answered Alcohol Use Standard Drinks/Week Comments Yes 0 (1 standard drink = 0.6 oz pur e alcohol) Sex and Gender Information Value Date Recorded Sex Assigned at Not on file Legal Sex Male 7:17 AM EST Gender Identity Not on file Sexual Orientation Not on file Obstetrics History Last Filed Vital Signs Vital Sign Reading Time Taken Comments Blood Pressure 134/88 08/30/2024 3:27 PM EST Pulse 101 08/30/2024 3:08 PM EST auto cuff Temperature 36.7 ??C (98.1 ??F) 08/30/2024 3:08 PM ES T Respiratory Rate - - Oxygen Saturation - - Inhaled Oxygen Concentration - - Weight 107 kg (235 lb) 08/30/2024 3:08 PM EST Height 177.8 cm (5' 10 ) 05/16/2024 9:08 AM EDT Body Mass Index 33.72 05/16/2024 9:08 AM EDT Plan of Treatment Upcoming Encounters Date Type Department Care Team (Late st Contact Info) Description 11/07/2024 9:00 AM EDT Office Visit [facility] Hematology Oncology [address] [place] [phone] Noelle Watson PA [address] [place] [address] 11/27/2024 8:15 AM EDT Office Visit Internal Medicine - [facility] [address] [place] [address] Clemente Naidu MD [address] [place] [id number] Health Maintenance Due Date Last Done Comments Hepatitis B Vaccines (1 of 3 - 19+ 3-dose series) 2000 Depression Screening 07/03/2022 HIV Screening 07/03/2022 Hepatitis C Screening 07/03/2022 Social Influencers of Health Screening 07/03/2022 COVID-19 Vaccine ( season) 2024 06/21/2022 Influenza Vaccine (#1) 2024 , 10/14/2019, 05/31/2016, Additional history exists Hypertension/CHF/CAD Annual BMP Blood Test 08/30/2025 08/30/2024, 04/10/2024, 04/10/2024 Cholesterol Screening (Lipid Panel) 04/10/2029 04/10/2024, 04/10/2024 DTaP,Tdap,and Td Vaccines (3 - Td or Tdap) 10/13/2029 10/14/2019, 11/28/2008 HIB Vaccines Aged Out No longer eligi ble based on patient's age to complete this topic HPV Vaccines Aged Out No longer eligi ble based on patient's age to complete this topic Hepatitis A Vaccines Aged Out No long er eligible based on patient's age to complete this topic IPV Vaccines Aged Out No longer eligi ble based on patient's age to complete this topic MMR Vaccines Aged Out No longer eligi ble based on patient's age to complete this topic Meningococcal ACWY Vaccine Aged Out N o longer eligible based on patient's age to complete this topic Meningococcal B Vacine Aged Out No lo nger eligible based on patient's age to complete this topic Pneumococcal Vaccine: Pediatrics (0 to 5 Years) and At-Risk Patients (6 to 64 Years) Aged Out No longer eligible based on patient's age to complete this topic RSV Immunization Patients Under 20 months Aged Out No longer eligible based on patient's age to complete this topic Varicella Vaccines Aged Out No longer eligible based on patient's age to complete this topic Procedures Procedure Name Priority Date/Time Associated Diagnosis Comments COMPREHENSIVE METABOLIC PANEL Routine 08/30/2024 3:42 PM EST Screening for metabolic disorder LIPID PANEL Routine 04/10/2024 from Last 3 Months or Most Recently Relevant to Health Maintenance Results * Comprehensive metabolic panel (08/30/2024 3:42 PM EST) Sodium 140 133 - 145 mmol/L LAB CHEMISTRY METHOD 08/30/2024 6:54 PM [facility] Potassium 4.1 3.5 - 5.5 mmol/L LAB CHEMISTRY METHOD 08/30/2024 6:54 PM [facility] Chloride 106 96 - 110 mmol/L LAB CHEMISTRY METHOD 08/30/2024 6:54 PM [facility] CO2 30 21 - 32 mmol/L LAB CHEMISTRY METHOD 08/30/2024 6:54 PM [facility] Anion Gap 4 3 - 11 LAB CHEMISTRY METHOD 08/30/2024 6:54 PM [facility] Glucose 84 70 - 100 mg/dL LAB CHEMISTRY METHOD 08/30/2024 6:54 PM [facility] BUN 12 5 - 25 mg/dL LAB CHEMISTRY METHOD 08/30/2024 6:54 PM [facility] Creatinine 1.18 0.70 - 1.30 mg/dL LAB CHEMISTRY METHOD 08/30/2024 6:54 PM [facility] eGFR 79 >=60 mL/min/1. 73m2 LAB CHEMISTRY METHOD 08/30/2024 6:54 PM [facility] Comment:Calculation based on the??Chronic Kidney Disease Epidemiology Collaboration (CKD-EPI) equation refit??without adjustment for race. BUN/Creatinine Ratio 10.2 LAB CHEMISTRY METHOD 08/30/2024 6:54 PM [facility] Calcium 9.7 8.5 - 10.5 mg/dL LAB CHEMISTRY METHOD 08/30/2024 6:54 PM [facility] AST (SGOT) 10 10 - 42 unit/L LAB CHEMISTRY METHOD 08/30/2024 6:54 PM [facility] ALT (SGPT) 20 10 - 60 unit/L LAB CHEMISTRY METHOD 08/30/2024 6:54 PM [facility] Alkaline Phosphatase 60 42 - 121 unit/L LAB CHEMISTRY METHOD 08/30/2024 6:54 PM [facility] Total Protein 7.5 6.0 - 8.0 g/dL LAB CHEMISTRY METHOD 08/30/2024 6:54 PM [facility] Albumin 4.3 3.2 - 5.0 g/dL LAB CHEMISTRY METHOD 08/30/2024 6:54 PM [facility] Total Bilirubin 0.7 0.0 - 1.4 mg/dL LAB CHEMISTRY METHOD 08/30/2024 6:54 PM [facility] Blood Venous blood specimen / Unknown Venipuncture / Unknown 08/30/2024 3:42 PM EST 08/30/2024 3:42 PM EST us Khushbu Tate NP LAB BLOOD ORDERABLES Final R esult [facility] [address] [place], [place] [address] [phone] * (ABNORMAL) Lipid panel (04/10/2024) LDL/HDL Ratio 3 0 - 4 Triglycerides 69 0 - 150 mg/dL Cholesterol 191 0 - 200 mg/dL HDL 66 >=40 mg/dL LDL Cholesterol 112(A) 0 - 100 mg/dL Blood Venous blood specimen / Unknown Historical Provider LAB BLOOD ORDERABLES Roya l Result from Last 3 Months or Most Recently Relevant to Health Maintenance Insurance Care Teams [employer] Drawing Operator Relationship Specialty Start Date End Date Clemente Naidu MD [address] [place] [id number] PCP - General 04/15/24
== END 2024-09-23 13:50 | disposition home or self-care (01) ==
LOC: HO.HBS 13:50
PROVIDERS: PCP Internal Medicine; Visit Provider Physician Assistant Surgical
DX: E66.811 Obesity, class 1 (principal); Z68.31 Body mass index [BMI] 31.0-31.9, adult; Z90.3 Acquired absence of stomach [part of]; Z98.84 Bariatric surgery status
CPT/HCPCS: 98012

== ENCOUNTER → 2024-09-23 13:50 | Outpatient (BNVA) | payer OTHER, SELFPAY | PROVIDERS: PCP Internal Medicine; Visit Provider Physician Assistant Surgical ==

== ENCOUNTER 2024-12-02 09:43 | Outpatient (AMB) | payer OTHER, SELFPAY ==
--- NOTE | 2024-12-02 09:31 | A.OFFVIS_ITS ---
VS Expanded 12/02/24 09:34 Height 5 ft 10 in Weight 220 lb BMI 31.6 Intake Visit Reasons: TELEPHONE PO LSG 09/08/20 Allergies No Known Allergies Allergy (Verified 09/16/20 07:47) Medication List - Last Reconciled 12/02/24 by MOLINA Feliciano amlodipine 10 mg PO DAILY pravastatin 80 mg PO DAILY HPI Comments Details: This?is a?43?yo male who is s/p LSG 09/08/2020. Presents for 4 year 3mo postop visit. Weight loss of 2lbs since last OV. 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 to incorporate more weight training [facility] Medical History (Updated 02/05/21 @ 11:21 by David Real MD) Liver fibrosis Steatosis, liver Family history of sickle cell trait COVID-19 vaccine administered Vitamin B1 deficiency Vitamin B12 deficiency Vitamin A deficiency Hyperlipidemia Sleep apnea with use of continuous positive airway pressure (CPAP) Hypertension Surgical History (Updated 09/16/20 @ 07:49 by Ja Roy [facility]) History of sleeve gastrectomy Hx of wisdom tooth extraction Morbid obesity Family History Mother Hypertension Father Hypertension Brother No problems noted. Brother No problems noted. Brother No problems noted. Son No problems noted. Son No problems noted. Son No problems noted. Social History Are you a primary caretaker to a significant other at home: No Do you presently have visiting nurse or other home services: No Alcohol intake: former Telehealth Telehealth Telehealth Platform: Telephone Location of provider rendering services: other Location of patient: address on file Patient Identification confirmed using: Name, : Yes Telehealth method: voice only Patient verbally consented to treatment: Yes Patient verbally consented to billing insurance company: Yes Patient informed of any privacy concerns related to visit: Yes Minutes spent on Phone/Video with Pt.: 12 Assessment & Plan Assessment & Plan (1) Obesity: Code(s): E66.9 - Obesity, unspecified Category: Medical (2) S/P laparoscopic sleeve gastrectomy: Code(s): Z98.84 - Bariatric surgery status Category: Surgical Plan Discussed the importance of exercise in weight loss. Pt reports he plans to increase further and will have more time once school is out for summer. Wants to incorporate more weight training. Reminded to have labs done. RTC 3mo, encouraged pt to text me with any questions between visits.
[2024-12-02 09:34] VITALS: BMI 31.6
--- OUTSIDE RECORDS SUMMARY | 2024-12-02 10:38 | XMS_ITS | Encounter Summary ---
Author Organization [facility] Address [address] [place] [address] Care Team Providers Care Day Care Aide Name Role Phone Clemente Naidu MD Primary Care Provider [phone] Encounter Details Date Type Department Care Team (Late st Contact Info) Description 05/16/2024 9:01 AM EDT Hospital Encounter TH HISTORIC ENCOUNTERS EASTERN CONVERSION ONLY Noelle Watson PA [address] [place] [address] Social History Tobacco Use Types Packs/Day Years [...] PA-C at 05/16/2024 9:00 AM Author: Noelle Watsno PA-C Service: -- Author Type: Physician Websphere Consultant Filed: 05/16/2024 9:59 AM Encounter Date: 05/16/2024 Status: Signed Mission Systems Engineer: Noelle Watson PA-C (Physician Websphere Consultant) Cosigner: Consuelo Lorenz DO at 05/20/2024 9:[address] Naidu, Thank you very much for referring this patient for consultation. HPI: 43-year-old male who was referred to our hematology clinic by PCP team for furtherevaluation of anemia. Records indicate presence of mild anemia as far back as 2013. Patient shares with me that he had a gastric sleeve surgery in 2000 at [facility]. He is not on any supplementation. He [...] MD Sign: Noelle Watson PA-C Hematology/Oncology Sister [facility] [phone] documented in this encounter Plan of Treatment Upcoming Encounters Date Type Department Care Team (Late st Contact Info) Description 05/29/2025 8:00 AM EDT Office Visit Internal Medicine - [address] [address] Clemente Naidu MD [address] [place] [id number] 11/13/2025 9:00 AM EDT Office Visit [facility] Hematology Oncology [address] [place] [address] Noelle Watson PA [address] [place] [address] documented as of this encounter Procedures Procedure Name Priority Date/Time Associated Diagnosis Comments ..MISCELLANEOUS REFERENCE LAB TEST 05/16/2024 documented in this encounter Results * Miscellaneous reference lab test (05/16/2024) us Provider Onbase MD LAB BLOOD ORDERABLES Final Re sult documented in this encounter Visit Diagnoses Not on filedocumented in this encounter Care Teams Day Care Aide Relationship Specialty Start Date End Date Clemente Naidu MD [address] [place] [id number] PCP - General 04/15/24 documented as of this encounter
--- OUTSIDE RECORDS SUMMARY | 2024-12-02 10:38 | XMS_ITS | Clinical Summary ---
Author Organization [facility] Address [address] [place] [address] Care Team Providers Care Aircraft Design Engineer Name Role Phone Pcp, No Primary Care Provider Unavailabl e Social History Tobacco Use Types Packs/Day Years Used Date Smoking Tobacco: Never Assessed Sex and Gender Information Value Date Recorded Sex Assigned at Male 10/28/2024 4:01 PM EDT Legal Sex Male 3:55 PM EDT Gender Identity Not on file Sexual Orientation Not on file Plan of Treatment Upcoming Encounters Date Type Department Care Team (Late st Contact Info) Description 01/20/2025 11:15 AM EDT Consult [facility] Plastic & Reconstructive Surgery [address] [place] [address] Raghav Pappas MD [address] [facility] [address] [place] [address] Health Maintenance Due Date Last Done Comments Hepatitis C Virus Screening 1981 HIV Screening 1994 DTaP/Tdap/Td Vaccines (1 - Tdap) 2000 Hepatitis B Vaccines (1 of 3 - 19+ 3-dose series) 2000 Influenza Vaccine 02/29/2024 COVID-19 Vaccine ( - 2023-2 5 season) 2024 HPV Vaccines Aged Out No longer eligi ble based on patient's age to complete this topic Pneumococcal Vaccine: Pediat yuval (0-5 Years) and At-Risk Patients (6 to 49 Years) Aged Out No longer eligible b ased on patient's age to complete this topic Care Teams Aircraft Design Engineer Relationship Specialty Start Date End Date Pcp, No PCP - General General Medicine 10/28/24
--- OUTSIDE RECORDS SUMMARY | 2024-12-02 10:38 | XMS_ITS | Encounter Summary ---
Author Organization [facility] Address [address] [place] [address] Care Team Providers Care Pack Changer Name Role Phone Clemente Naidu MD Primary Care Provider [phone] Reason for Referral * Consultation (Routine) - Pending Review Specialty Diagnoses / Procedures Referred By Tish marin Referred To Contact Dermatology Diagnoses Skin lesion Clemente Naidu MD [address] [place] [id number] Phone: tel: fax: Referral ID Status Reason Start Date Expiration Date Visits Requested Visits Authorized [id number] Pending Review Specialty Services Required 11/27/2024 11/27/2025 1 1 Reason for Visit * Reason Comments Follow-up meds Encounter Details Date Type Department Care Team (Late st Contact Info) Description 11/27/2024 8:15 AM EDT Office Visit Internal Medicine - [address] [phone] Clemente Naidu MD [address] [place] [phone] HTN (hypertension), benign (Primary Dx); Pure hypercholesterolemi a; Skin lesion Social History Tobacco Use Types Packs/Day Years [...] Sign Reading Time Taken Comments Blood Pressure 137/91 11/27/2024 8:20 AM EDT A Pulse 82 11/27/2024 8:10 AM EDT Temperature - - Respiratory Rate - - Oxygen Saturation - - Inhaled Oxygen Concentration - - Weight 107 kg (236 lb) 11/27/2024 8:10 AM EDT Height 179.1 cm (5' 10.5 ) 11/27/2024 8:10 AM ED T Body Mass Index 33.38 11/27/2024 8:10 AM EDT documented in this encounter Progress Notes * Clemente Naidu MD - 11/27/2024 8:15 AM EDT CHIEF COMPLAINT: Chief Complaint Patient presents with Follow-up meds IDENTIFIER: Paulino Staine. 44 y.o.. HPI: History of Present Illness The patient presents for evaluation of hypertension and weight management. Blood pressure monitoring at home has shown some improvement, with readings either lower or approximately the same as those recorded in the clinic. He is currently on amlodipine 10 mg. Weight had increased but has since started to decrease. Initially, Wegovy was thought to be the cause of the weight loss, but it was clarified during the last appointment that the medication was not contributing to the weight loss. The weight loss is believed to be due to changes in his stomach condition. A referral for a dermatological issue on the shoulder was supposed to be sent during the last appointment, but no communication has been received regarding this. PAST MEDICAL HISTORY: Past Medical History: Diagnosis Date Hyperlipemia 07/29/2015 DX:Hyperlipemia PAST SURGICAL HX: Past Surgical History: Procedure Laterality Date OTHER SURGICAL HISTORY PROCEDURE: DENIES PREVIOUS SURGERY OTHER SURGICAL HISTORY 2000 PROCEDURE:gastric sleeve SOCIAL HISTORY: FAMILY HISTORY: Family History Problem Relation Name Age of Onset Basal cell carcinoma Father Hypertension Brother Breast cancer Aunt 70.00 paternal Throat cancer Uncle 50.00 paternal Skin cancer Father MEDICATIONS DISCONTINUED/REORDERED: There are no discontinued medications. ACTIVE MEDICATIONS: Current Outpatient Medications on File Prior to Visit Medication Sig Dispense Refill amLODIPine (NORVASC) 10 mg tablet Take 1 tablet (10 mg total) by mouth 1 (one) time each day. 30 each 5 atorvastatin (LIPITOR) 20 mg tablet Take 1 Tablet by mouth daily. cyanocobalamin (VITAMIN B-12) 1,000 mcg tablet Take 1 tablet (1,000 mcg total) by mouth every otherday. 45 each 3 folic acid (FOLVITE) 1 mg tablet Take 1 tablet (1 mg total) by mouth every other day. 45 each 3 [DISCONTINUED] Wegovy 1.7 mg/0.75 mL injection pen Inject 1.7 mg under the skin every 7 (seven) days. tirzepatide, weight loss, (Zepbound) 2.5 mg/0.5 mL injection Inject 0.5 mL (2.5 mg total) under theskin every 7 (seven) days. No current facility-administered medications on file prior to visit. ALLERGIES: Allergies Allergen Reactions Lisinopril Other COUGH ROS: Constitutional: no weakness fever/ sweats, or weight change Eyes: no blurred vision,pain or discharge ENT: no mouth pain,oral bleeding, congestion or discharge Respiratory: no shortness of breath, cough or wheezing Cardiovascular:no chest pain or palpitations, no orthopnea or PND GI: no nausea, vomiting or diarrhea; no rectal bleeding or dark stools : no dysuria or frequency; no nocturia or hesitancy PHYSICAL EXAM: Vitals: 11/27/24 0820 BP: (!) 137/91 Pulse: BMI PLAN BMI Body mass index is 33.38 kg/m??. General: the patient is in no acute distress.A & Ox 3 Head/Neck: neck supple Lungs: clear to percussion and auscultation. Heart: regular rhythm; Abdominal exam; positive bowel sounds; soft Extremities: no cyanosis, clubbing or edema. LABS: ordered IMPRESSION: Encounter Diagnoses Name Primary? HTN (hypertension), benign Yes Pure hypercholesterolemia Skin lesion PLAN: Assessment & Plan 1. Hypertension: Borderline. - Currently on amlodipine 10 mg. - Emphasis on dietary modifications, regular exercise, and adherence to a low- sodium diet. - If blood pressure consistently measures =140, an additional antihypertensive medication will be considered. 2. Weight management. - Weight has remained stable at 236 pounds since 04/2024. - Reports initial weight gain followed by weight loss, attributed to dietary changes rather than Wegovy. - Monitoring weight and dietary habits. 3. Dermatological issue. - Referral to dermatology placed again for the shoulder issue. 4. Health maintenance. - Last liver, kidney, and cholesterol tests were done in 03/2024. - Blood work will be ordered to coincide with the next round of blood tests. Follow-up in 6 months for a physical examination. Orders Placed This Encounter Procedures Alanine aminotransferase Standing Status: Future Standing Expiration Date: 11/27/2025 Aspartate aminotransferase Standing Status: Future Standing Expiration Date: 11/27/2025 Basic metabolic panel Standing Status: Future Standing Expiration Date: 11/27/2025 Lipid panel with reflex to direct LDL Standing Status: Future Standing Expiration Date: 11/27/2025 Lipid panel with reflex to direct LDL Standing Status: Future Standing Expiration Date: 11/27/2025 Ambulatory referral to Dermatology Standing Status: Future Standing Expiration Date: 11/27/2025 Referral Priority: Routine Referral Type: Consultation Referral Reason: Specialty Services Required Requested Specialty: Dermatology Number of Visits Requested: 1 Additional Orders: None I have obtained verbal consent from Paulino Longoria prior to the recording. I have advised Paulino Longoria that he may refuse the recording and require the recording to be turned off at any time during this encounter. Clemente Naidu MD documented in this encounter Plan of Treatment Upcoming Encounters Date Type Department Care Team (Late st Contact Info) Description 05/29/2025 8:00 AM EDT [facility] [address] [place] [phone] Clemente Naidu MD [address] [place] [phone] 11/13/2025 9:00 AM EDT Office Visit [facility] Hematology Oncology [address] [place] [phone] Noelle Watson PA [address] [place] [address] Scheduled Orders Name Type Priority Associated Diagnoses Orde r Schedule Alanine aminotransferase Lab Routine HTN (hypertension), benign Pure hypercholesterolemia 1 Occurrences starting 11/27/2024 until 11/27/2025 Aspartate aminotransferase Lab Routine HTN (hypertension), benign Pure hypercholesterolemia 1 Occurrences starting 11/27/2024 until 11/27/2025 Basic metabolic panel Lab Routine HTN (hypertension), benign Pure hypercholesterolemia 1 Occurrences starting 11/27/2024 until 11/27/2025 Lipid panel with reflex to direct LDL Lab Routine HTN (hypertension), benign Pure hypercholesterolemia 1 Occurrences starting 11/27/2024 until 11/27/2025 Lipid panel with reflex to direct LDL Lab Routine HTN (hypertension), benign Pure hypercholesterolemia 1 Occurrences starting 11/27/2024 until 11/27/2025 Scheduled Referrals Name Type Priority Associated Diagnoses Order Schedule Ambulatory referral to Dermatology Outpatient Referral Routine Skin lesion 1 Occurrences starting 11/27/2024 until 11/27/2025 documented as of this encounter Visit Diagnoses Diagnosis HTN (hypertension), benign- Primary Essential hypertension, benign Pure hypercholesterolemia Skin lesion Unspecified disorder of skin and subcutaneous tissue documented in this encounter Discontinued Medications Medication Sig Discontinue Reason Start Date End Da te Wegovy 1.7 mg/0.75 mL injection pen Inject 1.7 mg under the skin every 7 (seven) days. Formulary change 08/16/2024 11/27/2024 documented as of this encounter Historical Medications * This list may reflect changes made after this encounter. tirzepatide, weight loss, (Zepbound) 2.5 mg/0.5 mL injection Inject 0.5 mL (2.5 mg total) under the skin every 7 (seven) days. added in this encounter Additional Health Concerns Assessment Noted Time PHQ-9 Depression Total Score: 0 11/28/19 25 6:28 AM EDT documented as of this encounter Care Teams Pack Changer Relationship Specialty Start Date End Date Clemente Naidu MD [address] [place] [address] PCP - General 04/15/24 documented as of this encounter
--- OUTSIDE RECORDS SUMMARY | 2024-12-02 10:39 | XMS_ITS ---
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 Name Role Phone ALCIDES LING Unavailable [phone] ALLERGIES No Known Allergies REASON FOR VISIT Patient is here for weight management follow up MEDICATIONS Medication SIG (Take, Route, Frequency, Duration) Notes Start Date End Date Status Atorvastatin Calcium 20 MG Oral for 30 Days Active Zepbound 5 MG/0.5ML Inject 5mg Subcutaneous weekly for 30 days 2.5mg dose received 11/26/2024 Active amLODIPine Besylate 10 MG 1 tablet Orally Once a day for 90 days 11/30/2023 Active Wegovy 2.4 MG/0.75ML Inject 2.4mg Subcutaneous weekly for 30 days Active Ondansetron HCl 4 MG 1 tablet Orally bella ry 8 hours for 30 days 11/30/2023 Active PROBLEMS Problem Type ICD Code Onset Dates Problem Status W/U Status Risk SNOMED Code Notes Problem Elevated lipids (E78.5) Active confirmed Elevated fasting lipid profile ([id number]) Problem BMI 32.0-32.9,adul t (Z68.32) Active confirmed [id number] VITAL SIGNS Blood pressure systolic 136 mm Hg 11/27/19 25 Blood pressure diastolic 90 mm Hg 025 Heart Rate 85 /min 11/26/2024 Height 71 in 11/26/2024 Weight 231.6 lbs 11/26/2024 BMI 32.3 kg/m2 11/26/2024 Oximetry 93 % 11/26/2024 Encounters Encounter Location Date Provider Diagnosis [id number] [address] 11/26/2024 ALCIDES LING BMI 32.0-32.9,adult Z68.32 ; Essential (primary) hypertension I10 ; Obesity (BMI 30-39.9) E66.9 ; Elevated lipids E78.5 and Dietary counseling and surveillance Z71.3 ASSESSMENTS Encounter Date Diagnosis Assessment Notes Treatment Notes Treatment Clinical Notes Section Notes 11/26/2024 BMI 32.0-32.9,adult (ICD-10 - Z68.32) Paulino is a 44-year-old male with a PMH of HTN that presents for weight management follow-up. Patient established care in November at which time his weight was 249. Reviewed [facility] holistic and medical approach to weight loss with emphasis on lifestyle modification. 11/26/2024: Weight: 231, BMI 32.3. Patient's weight is up. Body composition analysis reviewed. Patient continues to experience constipation due to Wegovy. Discussed lack of expected response and importance of lifestyle with goal of weight loss. Plan to transition to Zepbound. Sample of 2.5 mg provided. If tolerated will increase dose to 5 mg SC weekly. Patient is encouraged to incorporate 30 g of protein 3 times daily. He is also encouraged to continue walking regularly, goal 10K steps/day with added strength training 3 times weekly. Discussed importance of increased water intake, goal 60-80 ounces/day. 10/22/24: Weight: 227, BMI: 31.6. Seca reviewed, reveals 12 pounds of fat loss and 4 pounds of muscle mass increase. Discussed the importance of continued physical activity with goal of strength training 2-3 times weekly. Additionally discussed the importance of eating more regularly with goal of increasing protein intake (goal of 30 g/meal). Plan to continue Wegovy 2.4 mg SC weekly and follow-up in 1 month. #HTN: BP in office 160/84. Patient reports BP medication was recently increased by his primary care provider. Taking amlodipine 10 mg once daily. He is encouraged to monitor his BP at home and contact his PCP should pressures remain consistently greater than 140/90, patient demonstrates understanding. 09/18/2024: Weight: 231, BMI: 32.2. Patient down [...] reviewed. Dictation completed with the use of [employer] voice recognition software, prone to medical misidentifications and grammatical errors. All errors are unintentional. Although the practitioner does try to identify and correct errors, some may be present. Please do not hesitate to contact the practitioner for clarification. Total time spent was 30 minutes with >50% on coordination of care and patient education. 11/26/2024 Essential (primary) hypertension (ICD-10 - I10) Paulino is a 44-year-old male with a PMH of HTN that presents for weight management follow-up. Patient established care in November at which time his weight was 249. Reviewed [facility] holistic and medical approach to weight loss with emphasis on lifestyle modification. 11/26/2024: Weight: 231, BMI 32.3. Patient's weight is up. Body composition analysis reviewed. Patient continues to experience constipation due to Wegovy. Discussed lack of expected response and importance of lifestyle with goal of weight loss. Plan to transition to Zepbound. Sample of 2.5 mg provided. If tolerated will increase dose to 5 mg SC weekly. Patient is encouraged to incorporate 30 g of protein 3 times daily. He is also encouraged to continue walking regularly, goal 10K steps/day with added strength training 3 times weekly. Discussed importance of increased water intake, goal 60-80 ounces/day. 10/22/24: Weight: 227, BMI: 31.6. Seca reviewed, reveals 12 pounds of fat loss and 4 pounds of muscle mass increase. Discussed the importance of continued physical activity with goal of strength training 2-3 times weekly. Additionally discussed the importance of eating more regularly with goal of increasing protein intake (goal of 30 g/meal). Plan to continue Wegovy 2.4 mg SC weekly and follow-up in 1 month. #HTN: BP in office 160/84. Patient reports BP medication was recently increased by his primary care provider. Taking amlodipine 10 mg once daily. He is encouraged to monitor his BP at home and contact his PCP should pressures remain consistently greater than 140/90, patient demonstrates understanding. 09/18/2024: Weight: 231, BMI: 32.2. Patient down [...] reviewed. Dictation completed with the use of [employer] voice recognition software, prone to medical misidentifications and grammatical errors. All errors are unintentional. Although the practitioner does try to identify and correct errors, some may be present. Please do not hesitate to contact the practitioner for clarification. Total time spent was 30 minutes with >50% on coordination of care and patient education. 11/26/2024 Obesity (BMI 30-39.9) (ICD-10 - E66.9) Paulino is a 44-year-old male with a PMH of HTN that presents for weight management follow-up. Patient established care in November at which time his weight was 249. Reviewed [facility] holistic and medical approach to weight loss with emphasis on lifestyle modification. 11/26/2024: Weight: 231, BMI 32.3. Patient's weight is up. Body composition analysis reviewed. Patient continues to experience constipation due to Wegovy. Discussed lack of expected response and importance of lifestyle with goal of weight loss. Plan to transition to Zepbound. Sample of 2.5 mg provided. If tolerated will increase dose to 5 mg SC weekly. Patient is encouraged to incorporate 30 g of protein 3 times daily. He is also encouraged to continue walking regularly, goal 10K steps/day with added strength training 3 times weekly. Discussed importance of increased water intake, goal 60-80 ounces/day. 10/22/24: Weight: 227, BMI: 31.6. Seca reviewed, reveals 12 pounds of fat loss and 4 pounds of muscle mass increase. Discussed the importance of continued physical activity with goal of strength training 2-3 times weekly. Additionally discussed the importance of eating more regularly with goal of increasing protein intake (goal of 30 g/meal). Plan to continue Wegovy 2.4 mg SC weekly and follow-up in 1 month. #HTN: BP in office 160/84. Patient reports BP medication was recently increased by his primary care provider. Taking amlodipine 10 mg once daily. He is encouraged to monitor his BP at home and contact his PCP should pressures remain consistently greater than 140/90, patient demonstrates understanding. 09/18/2024: Weight: 231, BMI: 32.2. Patient down [...] reviewed. Dictation completed with the use of [employer] voice recognition software, prone to medical misidentifications and grammatical errors. All errors are unintentional. Although the practitioner does try to identify and correct errors, some may be present. Please do not hesitate to contact the practitioner for clarification. Total time spent was 30 minutes with >50% on coordination of care and patient education. 11/26/2024 Elevated lipids (ICD-10 - E78.5) Paulino is a 44-year-old male with a PMH of HTN that presents for weight management follow-up. Patient established care in November at which time his weight was 249. Reviewed [facility] holistic and medical approach to weight loss with emphasis on lifestyle modification. 11/26/2024: Weight: 231, BMI 32.3. Patient's weight is up. Body composition analysis reviewed. Patient continues to experience constipation due to Wegovy. Discussed lack of expected response and importance of lifestyle with goal of weight loss. Plan to transition to Zepbound. Sample of 2.5 mg provided. If tolerated will increase dose to 5 mg SC weekly. Patient is encouraged to incorporate 30 g of protein 3 times daily. He is also encouraged to continue walking regularly, goal 10K steps/day with added strength training 3 times weekly. Discussed importance of increased water intake, goal 60-80 ounces/day. 10/22/24: Weight: 227, BMI: 31.6. Seca reviewed, reveals 12 pounds of fat loss and 4 pounds of muscle mass increase. Discussed the importance of continued physical activity with goal of strength training 2-3 times weekly. Additionally discussed the importance of eating more regularly with goal of increasing protein intake (goal of 30 g/meal). Plan to continue Wegovy 2.4 mg SC weekly and follow-up in 1 month. #HTN: BP in office 160/84. Patient reports BP medication was recently increased by his primary care provider. Taking amlodipine 10 mg once daily. He is encouraged to monitor his BP at home and contact his PCP should pressures remain consistently greater than 140/90, patient demonstrates understanding. 09/18/2024: Weight: 231, BMI: 32.2. Patient down [...] reviewed. Dictation completed with the use of [employer] voice recognition software, prone to medical misidentifications and grammatical errors. All errors are unintentional. Although the practitioner does try to identify and correct errors, some may be present. Please do not hesitate to contact the practitioner for clarification. Total time spent was 30 minutes with >50% on coordination of care and patient education. 11/26/2024 Dietary counseling and surveillance (ICD-10 - Z71.3) Paulino is a 44-year-old male with a PMH of HTN that presents for weight management follow-up. Patient established care in November at which time his weight was 249. Reviewed [facility] holistic and medical approach to weight loss with emphasis on lifestyle modification. 11/26/2024: Weight: 231, BMI 32.3. Patient's weight is up. Body composition analysis reviewed. Patient continues to experience constipation due to Wegovy. Discussed lack of expected response and importance of lifestyle with goal of weight loss. Plan to transition to Zepbound. Sample of 2.5 mg provided. If tolerated will increase dose to 5 mg SC weekly. Patient is encouraged to incorporate 30 g of protein 3 times daily. He is also encouraged to continue walking regularly, goal 10K steps/day with added strength training 3 times weekly. Discussed importance of increased water intake, goal 60-80 ounces/day. 10/22/24: Weight: 227, BMI: 31.6. Seca reviewed, reveals 12 pounds of fat loss and 4 pounds of muscle mass increase. Discussed the importance of continued physical activity with goal of strength training 2-3 times weekly. Additionally discussed the importance of eating more regularly with goal of increasing protein intake (goal of 30 g/meal). Plan to continue Wegovy 2.4 mg SC weekly and follow-up in 1 month. #HTN: BP in office 160/84. Patient reports BP medication was recently increased by his primary care provider. Taking amlodipine 10 mg once daily. He is encouraged to monitor his BP at home and contact his PCP should pressures remain consistently greater than 140/90, patient demonstrates understanding. 09/18/2024: Weight: 231, BMI: 32.2. Patient down [...] reviewed. Dictation completed with the use of [employer] voice recognition software, prone to medical misidentifications [...] Name Sig Start Date Stop Date Notes Zepbound 5 MG/0.5ML Inject 5mg Subcutane ous weekly for 30 days 11/26/2024 2.5mg dose received Next Appt Details Provider Name:ALCIDES Brownlee, 12/31/2024 01:30:00 PM, [address] [facility], [address], [place], [address], Progress Notes * Paulino PABONDOB:1980 (44 yo M)Acc No.[id number]:11/26/2024 Patient:??Paulino PABON Provider:??ALCIDES LING PA-C :1980?Age:44 Y?Sex:Kristina wcik Date:11/26/2024 Address:[address] [place] [address], [facility], [id number] Subjective: * Chief Complaints: * ?1. Patient is here for weight management follow up. * HPI: ?Constitutional:? Pualino is a 44-year-old male with a PMH of HTN, HLD that presents for weight management follow-up. Currently taking Wegovy 2.4 mg SC weekly with compliance. Reports minimal appetite suppression. Denies side effects of nausea, vomiting, or abdominal pain. Continue to struggle with constipation for which he uses senna or laxative as needed. He has a last month was not consistent from drinking habits/exercise due to the large amount of travel. Visited many different states with his son to tour [employer]. Now that he is back looking forward to reestablishing routine. Feels protein intake and water could improve -currently drinking 4 bottles/day. Also feels he could incorporate more strength training -recently cleaned out his basement and brought up free weights to use at home. * ROS:?All Other Systems:?Review of Systems (ROS)??All others negative except those mentioned in HPI.? * Medical History:??Essential (primary) hypertension, Elevated cholesterol. * Surgical History:??Denies Tani macias Surgical History. * Hospitalization/Major Diagno stic Procedure:??Denies Past Hospitalization. * Family History:??Father: ali ve.??Mother: alive.??1 brother(s) . .?? * Medications:??Taking Wegovy 2.4 MG/0.75ML Solution Auto-injector Inject 2.4mg Subcutaneous weekly , Taking Ondansetron HCl 4 MG Tablet 1 tablet Orally every 8 hours , Taking amLODIPine Besylate 10 MG Tablet 1 tablet Orally Once a day , Taking Atorvastatin Calcium 20 MG Tablet Oral , Discontinued Wegovy 1.7 MG/0.75ML Solution Auto-injector inject 1.7mg Subcutaneous weekly , Discontinued Wegovy 1 MG/0.5ML Solution Auto-injector inject 1mg Subcutaneous weekly , Notes to Pharmacist: Received previous doses at recommended intervals in office., Medication List reviewed and reconciled with the patient * Allergies:??N.K.D.A. Objective: * Vitals:??HR:85/min, BP:136/9 0mm Hg, Wt:231.6lbs, BMI:32.3Index, Ht: 71 in, Oxygen sat %:93%. * Physical Examination:?General: Age appropriate, well-appearing 44-year-old [...] Z68.32??3.??Essential (primary) hypertension - I10??4.??Elevated lipids - E78.5??5.??Dietary counseling and surveillance - Z71.3?? Paulino is a 44-year-old male with a PMH of HTN that presents for weight management follow-up. Patient established care in November at which time his weight was 249. Reviewed [facility] holistic and medical approach to weight loss with emphasis on lifestyle modification. 11/26/2024: Weight: 231, BMI 32.3. Patient's weight is up. Body composition analysis reviewed. Patient continues to experience constipation due to Wegovy. Discussed lack of expected response and importance of lifestyle with goal of weight loss. Plan to transition to Zepbound. Sample of 2.5 mg provided. If tolerated will increase dose to 5 mg SC weekly. Patient is encouraged to incorporate 30 g of protein 3 times daily. He is also encouraged to continue walking regularly, goal 10K steps/day with added strength training 3 times weekly. Discussed importance of increased water intake, goal 60-80 ounces/day. 10/22/24: Weight: 227, BMI: 31.6. Seca reviewed, reveals 12 pounds of fat loss and 4 pounds of muscle mass increase. Discussed the importance of continued physical activity with goal of strength training 2-3 times weekly. Additionally discussed the importance of eating more regularly with goal of increasing protein intake (goal of 30 g/meal). Plan to continue Wegovy 2.4 mg SC weekly and follow-up in 1 month. #HTN: BP in office 160/84. Patient reports BP medication was recently increased by his primary care provider. Taking amlodipine 10 mg once daily. He is encouraged to monitor his BP at home and contact his PCP should pressures remain consistently greater than 140/90, patient demonstrates understanding. 09/18/2024: Weight: 231, BMI: 32.2. Patient down [...] reviewed. Dictation completed with the use of [employer] voice recognition software, prone to medical misidentifications and grammatical errors. All errors are unintentional. Although the practitioner does try to identify and correct errors, some may be present. Please do not hesitate to contact the practitioner for clarification. Total time spent was 30 minutes with >50% on coordination of care and patient education. 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 99417 Office Visit, Est Pt., Level 4. Modifiers: SA * Procedure Codes:?? 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 Modifiers: 33, SA * Sign off status: Completed true * Provider:??ALCIDES LING PA-C Date:?? 11/26/2024 History and Physical Notes * HPI (History of Present Illness) Category Sub-Category Detail Notes Category Not es Constitutional Paulino is a [age]-year-old male with a PMH of HTN, HLD that presents for weight management follow-up. Currently taking Wegovy 2.4 mg SC weekly with compliance. Reports minimal appetite suppression. Denies side effects of nausea, vomiting, or abdominal pain. Continue to struggle with constipation for which he uses senna or laxative as needed. He has a last month was not consistent from drinking habits/exercise due to the large amount of travel. Visited many different states with his son to tour [employer]. Now that he is back looking forward to reestablishing routine. Feels protein intake and water could improve -currently drinking 4 bottles/day. Also feels he could incorporate more strength training -recently cleaned out his basement and brought up free weights to use at home. Physical Examination Category Sub-Category Detail Notes Section [...]
--- OUTSIDE RECORDS SUMMARY | 2024-12-02 10:39 | XMS_ITS | Patient Health Record ---
Author Organization [facility] Address [address] [place] [address] Care Team Providers Care Registered Private Duty Nurse Name Role Phone ALCIDES LING Unavailable [phone] BELA SMITH Unavailable [phone] LINDATRACY MEREDITHEN Unavailable [phone] ALLERGIES No Known Allergies RESULTS Component Value Reference Range Notes URINALYSIS Reviewed date:02/07/2024 10:31:35 AM Interpretation: Performing Lab: Notes/Report: Note Original Ordering Provider: BELA SMITH MD [employer], [place] [address] Colors Custodian - Kaylah Saini MD GLUCOSE, (UA) NEGATIVE NEGATIVE mg/dL BILIRUBIN, URINE NEGATIVE NEGATIVE KETONE, URINE NEGATIVE NEGATIVE mg/dL SPECIFIC GRAVITY, URINE 1.022 1.003-1.030 BLOOD, URINE NEGATIVE NEGATIVE PH, URINE 6.0 5.0-8.0 PROTEIN, URINE NEGATIVE <= TRACE mg/dl UROBILINOGEN, URINE 1.0 0.2-1.0 E.U./dL NITRITE, URINE NEGATIVE NEGATIVE LEUKOCYTE ESTERASE, URINE NEGATIVE NEGATIVE Note Original Ordering Provider: BELA SMITH MD [employer], a member of [address] [address] Colors Custodian - Kaylah Saini MD COMPREHENSIVE METABOLIC PANE L Reviewed date:02/07/2024 10:31:35 AM Interpretation: Performing Lab: Notes/Report: Note Original Orderi ng Provider: BELA SMITH MD GLUCOSE 96 70-100 mg/dL Reference range applicable to fasting specimens only BUN 15 5-25 mg/dL CREAT 1.07 0.7-1.3 mg/dL GLOMERULAR FILTRATION RATE 89 >60 This eGFR result was calculated using the CKD-EPI 2020 Creatinine Equation SODIUM 140 135-145 mEq/L POTASSIUM 4.4 3.5-5.5 mmol/L CHLORIDE 105 96-110 mmol/L CO2 31 21-32 mmol/L ANION GAP 4 3-11 CALCIUM 9.6 8.5-10.5 mg/dL TOTAL PROTEIN 7.5 6.0-8.0 G/dL ALBUMIN 4.1 3.2-5.0 G/dL BILI,TOTAL 0.7 0.0-1.4 mg/dL SGOT 15 10-42 U/L SGPT 24 10-60 U/L ALK PHOS 65 42-121 U/L CBC WITH AUTO DIFF Reviewed date:02/07/2024 10:46:39 AM Interpretation: Performing Lab: Notes/Report: WBC 5.9 4.8-10.8 x10-3/uL RBC 5.3 4.5-5.5 x10-6/uL HEMOGLOBIN 12.5 13.5-17.5 g/dL HEMATOCRIT 42.0 42-54 % MCV 79.1 79-98 fL MCH 23.5 27-32 pg MCHC 29.8 32-37 g/dL RDW 13.4 11-15 % PLT COUNT 313 130-400 x10-3/uL MEAN PLATELET VOLUME 10.5 7-11 fL NRBC % AUTO 0.0 <1 % NEUT % 55.7 LYMPH % 35.8 MONO % 5.8 EOS % 1.2 BASO % 1.2 IMMATURE GRANULOCYTES % 0.3 NRBC # AUTO 0.00 <0.1 x10-3/uL ABSOLUTE NEUT 3.26 1.5-7.0 x10-3/uL LYMPH # 2.10 1-5.0 x10-3/uL MONO # 0.34 0.2-1.0 x10-3/uL EOS # 0.07 0-0.5 x10-3/uL BASO # 0.07 0-0.2 x10-3/uL IMMATURE GRANULOCYTES # 0.02 0-0.03 x10-3/uL LIPID PROFILE Reviewed date:02/07/2024 10:54:19 AM Interpretation: Performing Lab: Notes/Report: CHOLESTEROL 226 0-200 mg/dL TRIGLYCERIDES 71 0-150 mg/dL REASON FOR REFERRAL No Information MEDICATIONS Medication SIG (Take, Route, Frequency, Duration) Notes Start Date End Date Status Atorvastatin Calcium 20 MG Oral for 30 Days Active Zepbound 5 MG/0.5ML Inject 5mg Subcutaneous weekly for 30 days 2.5mg dose received 11/26/2024 Active Wegovy 2.4 MG/0.75ML Inject 2.4mg Subcutaneous weekly for 30 days Active amLODIPine Besylate 10 MG 1 tablet Orally Once a day for 90 days 11/30/2023 Active Ondansetron HCl 4 MG 1 tablet Orally bella ry 8 hours for 30 days 11/30/2023 Active SOCIAL HISTORY Sex Assigned At : Social History Observation Description Sex Assigned At Unknown Alcohol Screen (Audit-C) Question Answer Notes Did you have a drink contain ing alcohol in the past year? Yes How often did you have a dri nk containing alcohol in the past year? 2 to 4 times a month (2 points) How many drinks did you have on a typical day when you were drinking in the past year? 1 or 2 drinks (0 point) How often did you have 6 or more drinks on one occasion in the past year? Never (0 point) Points 2 Interpretation Negative PROBLEMS Problem Type ICD Code Onset Dates Problem Status W/U Status Risk SNOMED Code Notes Problem Essential (primary) hypertension (I10) Active confirmed 27035978 Problem Obesity (BMI 30-39.9) (E66.9) Active confirmed 129503796 Problem Elevated cholesterol (E78.00) Active confirmed Problem BMI 32.0-32.9,adult (Z68.32) Active confirmed 127963353 Problem Elevated lipids (E78.5) Active confirmed Elevated fasting lipid profile (360345019608 ) VITAL SIGNS Heart Rate 85 /min 11/26/2024 Blood pressure diastolic 90 mm Hg 11/26/2024 Oximetry 93 % 11/26/2024 Height 71 in 11/26/2024 Blood pressure systolic 136 mm Hg 11/26/2024 Weight 231.6 lbs 11/26/2024 BMI 32.3 kg/m2 11/26/2024 Encounters Encounter Location Date Provider Diagnosis [facility] [address] [facility] [address] [place] [address] 12/07/[address] [facility] [facility] [address] [facility] [address] [place] [address] 12/14/[address] [facility] [address] [facility] [address] [place] [address] 12/21/[address] [facility] [address] [facility] [address] [place] [address] 12/28/[address] [facility] [address] [facility] [address] [place] [address] 02/06/[address] [facility] [address] [facility] [address] [place] [address] 02/13/[address] [facility] [address] [facility] [address] [place] 02/20/[address] [facility] [address] [facility] [address] [place] [address] 02/26/[address] [facility] [address] [facility] [address] [place] [address] 03/12/[address] [facility] [address] [facility] [address] [place] [address] 03/13/[address] [facility] [address] [facility] [address] [place] 03/19/[address] [facility] [address] [facility] [address] [place] [address] 03/26/[address] [facility] [address] [facility] [address] [place] 04/09/[address] [facility] [address] [facility] [address] [place] [address] 04/16/[address] [facility] [address] [facility] [address] [place] [address] 04/23/[address] [facility] [address] [facility] [address] [place] [address] 05/07/[address] [facility] [address] [facility] [address] [place] [address] 01/30/2024 BELA SMITH Essential (primary) hypertension I10 ; Other obesity due to excess calories E66.09 and Body mass index [BMI] 34.0-34.9, adult Z68.34 [facility] [address] [facility] [address] [place] 03/05/2024 BELA SMITH Essential (primary) hypertension I10 ; Other obesity due to excess calories E66.09 and Body mass index [BMI] 34.0-34.9, adult Z68.34 [address] 04/02/2024 COUNT INCLUDES [facility] BMI 33.0-33.9,adult Z68.33 ; Obesity (BMI 30-39.9) E66.9 and Essential (primary) hypertension I10 [address] 04/30/2024 COUNT INCLUDES THE [facility] BMI 33.0-33.9,adult Z68.33 ; Obesity (BMI 30-39.9) E66.9 ; Essential (primary) hypertension I10 and Elevated lipids E78.5 [address] 06/11/2024 COUNT INCLUDES THE [facility] BMI 32.0-32.9,adult Z68.32 ; Essential (primary) hypertension I10 ; Obesity (BMI 30-39.9) E66.9 and Elevated lipids E78.5 [facility] [address] 07/16/2024 COUNT INCLUDES THE [facility] BMI 32.0-32.9,adult Z68.32 ; Essential (primary) hypertension I10 ; Obesity (BMI 30-39.9) E66.9 and Elevated lipids E78.[address] [place] [address] 08/20/2024 COUNT INCLUDES THE [facility] BMI 33.0-33.9,adult Z68.33 ; Essential (primary) hypertension I10 ; Obesity (BMI 30-39.9) E66.9 and Elevated lipids E78.[address] [address] 09/18/2024 COUNT INCLUDES THE [facility] BMI 32.0-32.9,adult Z68.32 ; Essential (primary) hypertension I10 ; Obesity (BMI 30-39.9) E66.9 ; Elevated lipids E78.5 and Dietary counseling and surveillance Z71.[address] [facility] [address] [place] [address] 10/22/2024 ALCIDES LING BMI 31.0-31.9,adult Z68.31 ; Essential (primary) hypertension I10 ; Obesity (BMI 30-39.9) E66.9 ; Elevated lipids E78.5 and Dietary counseling and surveillance Z71.3 [address] [facility] [address] [place] [address] 11/26/2024 ALCIDES MONTICELLO BMI 32.0-32.9,adult Z68.32 ; Essential (primary) hypertension I10 ; Obesity (BMI 30-39.9) E66.9 ; Elevated lipids E78.5 and Dietary counseling and surveillance Z71.3 [address] [facility] [address] [place] [address] 12/28/2023 TALAL SMITH [address] [facility] [address] [place] [address] 02/05/2024 TALAL SMITH [facility] [address] [facility] [address] [place] [address] 03/12/[address] [facility] [address] [place] [address] 04/08/2024 TALAL SMITH Obesity (BMI 30-39.9 ) E66.[address] [facility] [address] [facility] [address] [place] [address] 04/09/2024 TALAL SMITH Obesity (BMI 30-39.9 ) E66.[address] [facility] [address] [facility] [address] [place] [address] 04/09/2024 TALAL SMITH [address] [facility] [address] [place] [address] 04/09/[address] [facility] [address] [place] [address] 04/17/2024 ALCIDES MONTICELLO [address] [facility] [address] [place] [address] 06/11/[address] [facility] [address] [facility] [address] [facility] [address] [facility] [address] [place] [address] 08/15/[address] [facility] [address] [facility] [address] [address] 08/16/2024 ALCIDES LING [facility] [address] [address] 09/05/2024 ALCIDES LING [facility] [address] [address] 11/26/2024 [facility] [address] [place] [address] 12/14/2023 BELA SMITH ASSESSMENTS Encounter Date Diagnosis Assessment Notes Treatment Notes Treatment Clinical Notes Section Notes 01/30/2024 Other obesity due to excess calories (ICD-10 - E66.09) Patient has been diagnosed with elevated blood pressure discussed that blood pressure values can vary with different measurements. We should go by mean blood pressure values.. Discussed the role of ambulatory blood pressure monitoring. Discussed the role of [employer] blood pressure device system that we have and can help with remote blood pressure monitoring as long as it is covered by insurance and can be measured remotely. Discussed different blood pressure medicines including angiotensin receptor blockers like losartan, calcium channel blockers like amlodipine based beta-blockers like, metoprolol and bisoprolol, diuretics like hydrochlorothiazide,. Spironolactone and furosemide. Discussed the role of diet elimination of refined carbohydrates processed sugars alcohol, standard Haitian diet, chips and fast food, role of home cooking, elimination of white bread and high fructose corn syrup and cereals. Discussed wholesome eating, regular exercise, step count and walking to get 10,000 steps a day when possible. Keeping a log of blood pressure and having a physician or physician elevator worker titrate blood pressure based on treatment protocols Patient is here for weight management followup. We focused on significance of healthy lifestyle changes. We talked about need to track steps, work on portion control, read food labels, get adequate sleep, give adequate rest of the body, meditate, frequent nutritious meals including vegetables and healthy choices of meat and elimination of refined carbohydrates. We also talked about mindfulness and mindful eating. Particular focus was on consistency with weight loss program and lifestyle choices and medications Total time spent was 30 minutes with greater than 50% spent on counseling and coordinating care 01/30/2024 Essential (primary) hypertension (ICD-10 - I10) Patient has been diagnosed with elevated blood pressure discussed that blood pressure values can vary with different measurements. We should go by mean blood pressure values.. Discussed the role of ambulatory blood pressure monitoring. Discussed the role of [employer] blood pressure device system that we have and can help with remote blood pressure monitoring as long as it is covered by insurance and can be measured remotely. Discussed different blood pressure medicines including angiotensin receptor blockers like losartan, calcium channel blockers like amlodipine based beta-blockers like, metoprolol and bisoprolol, diuretics like hydrochlorothiazide,. Spironolactone and furosemide. Discussed the role of diet elimination of refined carbohydrates processed sugars alcohol, standard Haitian diet, chips and fast food, role of home cooking, elimination of white bread and high fructose corn syrup and cereals. Discussed wholesome eating, regular exercise, step count and walking to get 10,000 steps a day when possible. Keeping a log of blood pressure and having a physician or physician elevator worker titrate blood pressure based on treatment protocols Patient is here for weight management followup. We focused on significance of healthy lifestyle changes. We talked about need to track steps, work on portion control, read food labels, get adequate sleep, give adequate rest of the body, meditate, frequent nutritious meals including vegetables and healthy choices of meat and elimination of refined carbohydrates. We also talked about mindfulness and mindful eating. Particular focus was on consistency with weight loss program and lifestyle choices and medications Total time spent was 30 minutes with greater than 50% spent on counseling and coordinating care 03/05/2024 Essential (primary) hypertension (ICD-10 - I10) Patient has been diagnosed with elevated blood pressure discussed that blood pressure values can vary with different measurements. We should go by mean blood pressure values.. Discussed the role of ambulatory blood pressure monitoring. States he take Amlodopine daily. Spironolactone and furosemide. Discussed the role of diet elimination of refined carbohydrates processed sugars alcohol, standard Haitian diet, chips and fast food, role of home cooking, elimination of white bread and high fructose corn syrup and cereals. Discussed wholesome eating, regular exercise, step count and walking to get 10,000 steps a day when possible. Keeping a log of blood pressure and having a physician or physician elevator worker titrate blood pressure based on treatment protocols Patient is here for weight management followup. We focused on significance of healthy lifestyle changes. We talked about need to track steps, work on portion control, read food labels, get adequate sleep, give adequate rest of the body, meditate, frequent nutritious meals including vegetables and healthy choices of meat and elimination of refined carbohydrates. We also talked about mindfulness and mindful eating. Particular focus was on consistency with weight loss program and lifestyle choices and medications. Continue 0.5mg Semaglutide weekly. Total time spent was 30 minutes with greater than 50% spent on counseling and coordinating care 04/02/2024 Obesity (BMI 30-39.9) (ICD-10 - E66.9) [facility] with emphasis on lifestyle modification. Patient is educated that a healthy lifestyle aids in combating obesity as well as reducing the risk of developing obesity-related medical complications including but not limited to diabetes and cardiovascular disease. Detailed education provided about taking steps to initiate sustainable lifestyle changes including incorporating regular physical activity, making healthy diet choices, and prioritizing mental health. Handouts including lifestyle checklist, protein content of food, low calorie snacks, and cholesterol information sheet provided. 04/02/2024: Weight 242, BMI 33.7. SECA reviewed. Reviewed goals for implementing sustainable lifestyle changes. Patient is encouraged to continue with increased protein intake. Recommending he continue to prepare his own meals. Discussed goal of implementing weight training with proper safety/body mechanics twice weekly. As it has been 3 consecutive months [...] reviewed. Dictation completed with the use of [employer] voice recognition software, prone to medical misidentifications and grammatical errors. All errors are unintentional. Although the practitioner does try to identify and correct errors, some may be present. Please do not hesitate to contact the practitioner for clarification. 04/02/2024 BMI 33.0-33.9,adult (ICD-10 - Z68.33) Reviewed [facility] holistic medical approach to weight loss with emphasis on lifestyle modification. Patient is educated that a healthy lifestyle aids in combating obesity as well as reducing the risk of developing obesity-related medical complications including but not limited to diabetes and cardiovascular disease. Detailed education provided about taking steps to initiate sustainable lifestyle changes including incorporating regular physical activity, making healthy diet choices, and prioritizing mental health. Handouts including lifestyle checklist, protein content of food, low calorie snacks, and cholesterol information sheet provided. 04/02/2024: Weight 242, BMI 33.7. SECA reviewed. Reviewed goals for implementing sustainable lifestyle changes. Patient is encouraged to continue with increased protein intake. Recommending he continue to prepare his own meals. Discussed goal of implementing weight training with proper safety/body mechanics twice weekly. As it has been 3 consecutive months [...] reviewed. Dictation completed with the use of [employer] voice recognition software, prone to medical misidentifications and grammatical errors. All errors are unintentional. Although the practitioner does try to identify and correct errors, some may be present. Please do not hesitate to contact the practitioner for clarification. 04/08/2024 Obesity (BMI 30-39.9) (ICD-10 - E66.9) 04/09/2024 Obesity (BMI 30-39.9) (ICD-10 - E66.9) 04/30/2024 BMI 33.0-33.9,adult (ICD-10 - Z68.33) Paulino is a 43-year-old male with a PMH of HTN that presents for weight management follow-up. Patient establish care in November at which time his weight was 249. Reviewed [facility] holistic and medical approach to weight loss with emphasis on lifestyle modification. 04/30/2024: Weight: 238, BMI: 33.19. SECA reviewed [...] implementing weight training with proper safety/body mechanics twice weekly. As it has been 3 consecutive months [...] reviewed. Dictation completed with the use of [employer] voice recognition software, prone to medical misidentifications and grammatical errors. All errors are unintentional. Although the practitioner does try to identify and correct errors, some may be present. Please do not hesitate to contact the practitioner for clarification. 06/11/2024 BMI 32.0-32.9,adult (ICD-10 - Z68.32) Paulino is a 43-year-old male with a PMH of HTN that presents for weight management follow-up. Patient establish care in November at which time his weight was 249. Reviewed [facility] holistic and medical approach to weight loss with emphasis on lifestyle modification. 06/11/2024: Weight: 233, BMI: 32. Patient down [...] company. Reviewed expectations for PA process/insurance coverage. After consultation and careful review of medical history, this patient would benefit from Wegovy based off of the following criteria met: Patient is over the age of 18 with a BMI of 32. Additional comorbidities include HTN, HLD. Patient has trialed other methods of weight loss including improving diet and exercise without success over at least SIX months. This medication is prescribed by or in consultation with a board-certified obesity and weight management physician (Dr. Bela Smith or Dr. Marc Smith). 04/30/2024: Weight: 238, BMI: 33.19. SECA reviewed [...] questions/concerns arise. Case discussed with collaborating physician Paola Smith who has reviewed the assessment/plan. Chart, medications, labs, and vital signs reviewed. Dictation completed with the use of [employer] voice recognition software, prone to medical misidentifications and grammatical errors. All errors are unintentional. Although the practitioner does try to identify and correct errors, some may be present. Please do not hesitate to contact the practitioner for clarification. Total time spent was 25 minutes with >50% on coordination of care and patient education. 07/16/2024 BMI 32.0-32.9,adult (ICD-10 - Z68.32) Paulino is a 43-year-old male with a PMH of HTN that presents for weight management follow-up. Patient establish care in November at which time his weight was 249. Reviewed [facility] holistic and medical approach to weight loss with emphasis on lifestyle modification. 07/16/2024: Weight: 234, BMI: 32.6. SECA reviewed, [...] reviewed. Dictation completed with the use of [employer] voice recognition software, prone to medical misidentifications and grammatical errors. All errors are unintentional. Although the practitioner does try to identify and correct errors, some may be present. Please do not hesitate to contact the practitioner for clarification. Total time spent was 30 minutes with >50% on coordination of care and patient education. 08/20/2024 BMI 33.0-33.9,adult (ICD-10 - Z68.33) Paulino [...] reviewed. Dictation completed with the use of [employer] voice recognition software, prone to medical misidentifications and grammatical errors. All errors are unintentional. Although the practitioner does try to identify and correct errors, some may be present. Please do not hesitate to contact the practitioner for clarification. Total time spent was 30 minutes with >50% on coordination of care and patient education. 09/18/2024 BMI 32.0-32.9,adult (ICD-10 - Z68.32) Paulino [...] reviewed. Dictation completed with the use of [employer] voice recognition software, prone to medical misidentifications and grammatical errors. All errors are unintentional. Although the practitioner does try to identify and correct errors, some may be present. Please do not hesitate to contact the practitioner for clarification. Total time spent was 30 minutes with >50% on coordination of care and patient education. 10/22/2024 BMI 31.0-31.9,adult (ICD-10 - Z68.31) Paulino is a 44-year-old male with a PMH of HTN that presents for weight management follow-up. Patient established care in November at which time his weight was 249. Reviewed [facility] holistic and medical approach to weight loss with emphasis on lifestyle modification. 10/22/24: Weight: 227, BMI: 31.6. Seca reviewed, [...] reviewed. Dictation completed with the use of [employer] voice recognition software, prone to medical misidentifications and grammatical errors. All errors are unintentional. Although the practitioner does try to identify and correct errors, some may be present. Please do not hesitate to contact the practitioner for clarification. Total time spent was 30 minutes with >50% on coordination of care and patient education. 11/26/2024 BMI 32.0-32.9,adult (ICD-10 - Z68.32) Paulino [...] reviewed. Dictation completed with the use of [employer] voice recognition software, prone to medical misidentifications and grammatical errors. All errors are unintentional. Although the practitioner does try to identify and correct errors, some may be present. Please do not hesitate to contact the practitioner for clarification. Total time spent was 30 minutes with >50% on coordination of care and patient education. 10/22/2024 Essential (primary) hypertension (ICD-10 - I10) Paulino is a 44-year-old male with a PMH of HTN that presents for weight management follow-up. Patient established care in November at which time his weight was 249. Reviewed [facility] holistic and medical approach to weight loss with emphasis on lifestyle modification. 10/22/24: Weight: 227, BMI: 31.6. Seca reviewed, [...] reviewed. Dictation completed with the use of [employer] voice recognition software, prone to medical misidentifications [...] reviewed. Dictation completed with the use of [employer] voice recognition software, prone to medical misidentifications and grammatical errors. All errors are unintentional. Although the practitioner does try to identify and correct errors, some may be present. Please do not hesitate to contact the practitioner for clarification. Total time spent was 30 minutes with >50% on coordination of care and patient education. 04/02/2024 Essential (primary) hypertension (ICD-10 - I10) Reviewed [facility] holistic medical approach to weight loss with emphasis on lifestyle modification. Patient is educated that a healthy lifestyle aids in combating obesity as well as reducing the risk of developing obesity-related medical complications including but not limited to diabetes and cardiovascular disease. Detailed education provided about taking steps to initiate sustainable lifestyle changes including incorporating regular physical activity, making healthy diet choices, and prioritizing mental health. Handouts including lifestyle checklist, protein content of food, low calorie snacks, and cholesterol information sheet provided. 04/02/2024: Weight 242, BMI 33.7. SECA reviewed. Reviewed goals for implementing sustainable lifestyle changes. Patient is encouraged to continue with increased protein intake. Recommending he continue to prepare his own meals. Discussed goal of implementing weight training with proper safety/body mechanics twice weekly. As it has been 3 consecutive months [...] reviewed. Dictation completed with the use of [employer] voice recognition software, prone to medical misidentifications and grammatical errors. All errors are unintentional. Although the practitioner does try to identify and correct errors, some may be present. Please do not hesitate to contact the practitioner for clarification. 09/18/2024 Essential (primary) hypertension (ICD-10 - I10) [...] reviewed. Dictation completed with the use of [employer] voice recognition software, prone to medical misidentifications [...] reviewed. Dictation completed with the use of [employer] voice recognition software, prone to medical misidentifications and grammatical errors. All errors are unintentional. Although the practitioner does try to identify and correct errors, some may be present. Please do not hesitate to contact the practitioner for clarification. Total time spent was 30 minutes with >50% on coordination of care and patient education. 07/16/2024 Essential (primary) hypertension (ICD-10 - I10) Paulino is a 43-year-old male with a PMH of HTN that presents for weight management follow-up. Patient establish care in November at which time his weight was 249. Reviewed [facility] holistic and medical approach to weight loss with emphasis on lifestyle modification. 07/16/2024: Weight: 234, BMI: 32.6. SECA reviewed, [...] reviewed. Dictation completed with the use of [employer] voice recognition software, prone to medical misidentifications and grammatical errors. All errors are unintentional. Although the practitioner does try to identify and correct errors, some may be present. Please do not hesitate to contact the practitioner for clarification. Total time spent was 30 minutes with >50% on coordination of care and patient education. 06/11/2024 Essential (primary) hypertension (ICD-10 - I10) Paulino is a 43-year-old male with a PMH of HTN that presents for weight management follow-up. Patient establish care in November at which time his weight was 249. Reviewed [facility] holistic and medical approach to weight loss with emphasis on lifestyle modification. 06/11/2024: Weight: 233, BMI: 32. Patient down [...] company. Reviewed expectations for PA process/insurance coverage. After consultation and careful review of medical history, this patient would benefit from Wegovy based off of the following criteria met: Patient is over the age of 19 with a BMI of 32. Additional comorbidities include HTN, HLD. Patient has trialed other methods of weight loss including improving diet and exercise without success over at least SIX months. This medication is prescribed by or in consultation with a board-certified obesity and weight management physician (Dr. Bela Smith or Dr. Marc Smith). 04/30/2024: Weight: 238, BMI: 33.19. SECA reviewed [...] questions/concerns arise. Case discussed with collaborating physician Paola Smith who has reviewed the assessment/plan. Chart, medications, labs, and vital signs reviewed. Dictation completed with the use of [employer] voice recognition software, prone to medical misidentifications and grammatical errors. All errors are unintentional. Although the practitioner does try to identify and correct errors, some may be present. Please do not hesitate to contact the practitioner for clarification. Total time spent was 25 minutes with >50% on coordination of care and patient education. 04/30/2024 Essential (primary) hypertension (ICD-10 - I10) Paulino is a 43-year-old male with a PMH of HTN that presents for weight management follow-up. Patient establish care in November at which time his weight was 249. Reviewed [facility] holistic and medical approach to weight loss with emphasis on lifestyle modification. 04/30/2024: Weight: 238, BMI: 33.19. SECA reviewed [...] implementing weight training with proper safety/body mechanics twice weekly. As it has been 3 consecutive months [...] reviewed. Dictation completed with the use of [employer] voice recognition software, prone to medical misidentifications and grammatical errors. All errors are unintentional. Although the practitioner does try to identify and correct errors, some may be present. Please do not hesitate to contact the practitioner for clarification. 04/30/2024 Obesity (BMI 30-39.9) (ICD-10 - E66.9) Paulino is a 43-year-old male with a PMH of HTN that presents for weight management follow-up. Patient establish care in November at which time his weight was 249. Reviewed [facility] holistic and medical approach to weight loss with emphasis on lifestyle modification. 04/30/2024: Weight: 238, BMI: 33.19. SECA reviewed [...] implementing weight training with proper safety/body mechanics twice weekly. As it has been 3 consecutive months [...] reviewed. Dictation completed with the use of [employer] voice recognition software, prone to medical misidentifications and grammatical errors. All errors are unintentional. Although the practitioner does try to identify and correct errors, some may be present. Please do not hesitate to contact the practitioner for clarification. 01/30/2024 Body mass index [BMI] 34.0-34.9, adult (ICD-10 - Z68.34) Patient has been diagnosed with elevated blood pressure discussed that blood pressure values can vary with different measurements. We should go by mean blood pressure values.. Discussed the role of ambulatory blood pressure monitoring. Discussed the role of [employer] blood pressure device system that we have and can help with remote blood pressure monitoring as long as it is covered by insurance and can be measured remotely. Discussed different blood pressure medicines including angiotensin receptor blockers like losartan, calcium channel blockers like amlodipine based beta-blockers like, metoprolol and bisoprolol, diuretics like hydrochlorothiazide,. Spironolactone and furosemide. Discussed the role of diet elimination of refined carbohydrates processed sugars alcohol, standard Haitian diet, chips and fast food, role of home cooking, elimination of white bread and high fructose corn syrup and cereals. Discussed wholesome eating, regular exercise, step count and walking to get 10,000 steps a day when possible. Keeping a log of blood pressure and having a physician or physician elevator worker titrate blood pressure based on treatment protocols Patient is here for weight management followup. We focused on significance of healthy lifestyle changes. We talked about need to track steps, work on portion control, read food labels, get adequate sleep, give adequate rest of the body, meditate, frequent nutritious meals including vegetables and healthy choices of meat and elimination of refined carbohydrates. We also talked about mindfulness and mindful eating. Particular focus was on consistency with weight loss program and lifestyle choices and medications Total time spent was 30 minutes with greater than 50% spent on counseling and coordinating care 03/05/2024 Other obesity due to excess calories (ICD-10 - E66.09) Patient has been diagnosed with elevated blood pressure discussed that blood pressure values can vary with different measurements. We should go by mean blood pressure values.. Discussed the role of ambulatory blood pressure monitoring. States he take Amlodopine daily. Spironolactone and furosemide. Discussed the role of diet elimination of refined carbohydrates processed sugars alcohol, standard Haitian diet, chips and fast food, role of home cooking, elimination of white bread and high fructose corn syrup and cereals. Discussed wholesome eating, regular exercise, step count and walking to get 10,000 steps a day when possible. Keeping a log of blood pressure and having a physician or physician elevator worker titrate blood pressure based on treatment protocols Patient is here for weight management followup. We focused on significance of healthy lifestyle changes. We talked about need to track steps, work on portion control, read food labels, get adequate sleep, give adequate rest of the body, meditate, frequent nutritious meals including vegetables and healthy choices of meat and elimination of refined carbohydrates. We also talked about mindfulness and mindful eating. Particular focus was on consistency with weight loss program and lifestyle choices and medications. Continue 0.5mg Semaglutide weekly. Total time spent was 30 minutes with greater than 50% spent on counseling and coordinating care 03/05/2024 Body mass index [BMI] 34.0-34.9, adult (ICD-10 - Z68.34) Patient has been diagnosed with elevated blood pressure discussed that blood pressure values can vary with different measurements. We should go by mean blood pressure values.. Discussed the role of ambulatory blood pressure monitoring. States he take Amlodopine daily. Spironolactone and furosemide. Discussed the role of diet elimination of refined carbohydrates processed sugars alcohol, standard Haitian diet, chips and fast food, role of home cooking, elimination of white bread and high fructose corn syrup and cereals. Discussed wholesome eating, regular exercise, step count and walking to get 10,000 steps a day when possible. Keeping a log of blood pressure and having a physician or physician elevator worker titrate blood pressure based on treatment protocols Patient is here for weight management followup. We focused on significance of healthy lifestyle changes. We talked about need to track steps, work on portion control, read food labels, get adequate sleep, give adequate rest of the body, meditate, frequent nutritious meals including vegetables and healthy choices of meat and elimination of refined carbohydrates. We also talked about mindfulness and mindful eating. Particular focus was on consistency with weight loss program and lifestyle choices and medications. Continue 0.5mg Semaglutide weekly. Total time spent was 30 minutes with greater than 50% spent on counseling and coordinating care 06/11/2024 Obesity (BMI 30-39.9) (ICD-10 - E66.9) Paulino is a 43-year-old male with a PMH of HTN that presents for weight management follow-up. Patient establish care in November at which time his weight was 249. Reviewed [facility] holistic and medical approach to weight loss with emphasis on lifestyle modification. 06/11/2024: Weight: 233, BMI: 32. Patient down [...] company. Reviewed expectations for PA process/insurance coverage. After consultation and careful review of medical history, this patient would benefit from Wegovy based off of the following criteria met: Patient is over the age of 19 with a BMI of 32. Additional comorbidities include HTN, HLD. Patient has trialed other methods of weight loss including improving diet and exercise without success over at least SIX months. This medication is prescribed by or in consultation with a board-certified obesity and weight management physician (Dr. Bela Smith or Dr. Marc Smith). 04/30/2024: Weight: 238, BMI: 33.19. SECA reviewed [...] questions/concerns arise. Case discussed with collaborating physician Paola Smith who has reviewed the assessment/plan. Chart, medications, labs, and vital signs reviewed. Dictation completed with the use of [employer] voice recognition software, prone to medical misidentifications and grammatical errors. All errors are unintentional. Although the practitioner does try to identify and correct errors, some may be present. Please do not hesitate to contact the practitioner for clarification. Total time spent was 25 minutes with >50% on coordination of care and patient education. 04/30/2024 Elevated lipids (ICD-10 - E78.5) Paulino is a 43-year-old male with a PMH of HTN that presents for weight management follow-up. Patient establish care in November at which time his weight was 249. Reviewed [facility] holistic and medical approach to weight loss with emphasis on lifestyle modification. 04/30/2024: Weight: 238, BMI: 33.19. SECA reviewed [...] implementing weight training with proper safety/body mechanics twice weekly. As it has been 3 consecutive months [...] reviewed. Dictation completed with the use of [employer] voice recognition software, prone to medical misidentifications and grammatical errors. All errors are unintentional. Although the practitioner does try to identify and correct errors, some may be present. Please do not hesitate to contact the practitioner for clarification. 07/16/2024 Obesity (BMI 30-39.9) (ICD-10 - E66.9) Paulino is a 43-year-old male with a PMH of HTN that presents for weight management follow-up. Patient establish care in November at which time his weight was 249. Reviewed [facility] holistic and medical approach to weight loss with emphasis on lifestyle modification. 07/16/2024: Weight: 234, BMI: 32.6. SECA reviewed, [...] reviewed. Dictation completed with the use of [employer] voice recognition software, prone to medical misidentifications and grammatical errors. All errors are unintentional. Although the practitioner does try to identify and correct errors, some may be present. Please do not hesitate to contact the practitioner for clarification. Total time spent was 30 minutes with >50% on coordination of care and patient education. 06/11/2024 Elevated lipids (ICD-10 - E78.5) Paulino is a 43-year-old male with a PMH of HTN that presents for weight management follow-up. Patient establish care in November at which time his weight was 249. Reviewed [facility] holistic and medical approach to weight loss with emphasis on lifestyle modification. 06/11/2024: Weight: 233, BMI: 32. Patient down [...] company. Reviewed expectations for PA process/insurance coverage. After consultation and careful review of medical history, this patient would benefit from Wegovy based off of the following criteria met: Patient is over the age of 19 with a BMI of 32. Additional comorbidities include HTN, HLD. Patient has trialed other methods of weight loss including improving diet and exercise without success over at least SIX months. This medication is prescribed by or in consultation with a board-certified obesity and weight management physician (Dr. Bela Smith or Dr. Marc Smith). 04/30/2024: Weight: 238, BMI: 33.19. SECA reviewed [...] questions/concerns arise. Case discussed with collaborating physician Paola Smith who has reviewed the assessment/plan. Chart, medications, labs, and vital signs reviewed. Dictation completed with the use of [employer] voice recognition software, prone to medical misidentifications and grammatical errors. All errors are unintentional. Although the practitioner does try to identify and correct errors, some may be present. Please do not hesitate to contact the practitioner for clarification. Total time spent was 25 minutes with >50% on coordination of care [...] reviewed. Dictation completed with the use of [employer] voice recognition software, prone to medical misidentifications [...] reviewed. Dictation completed with the use of [employer] voice recognition software, prone to medical misidentifications [...] reviewed. Dictation completed with the use of [employer] voice recognition software, prone to medical misidentifications [...] reviewed. Dictation completed with the use of [employer] voice recognition software, prone to medical misidentifications and grammatical errors. All errors are unintentional. Although the practitioner does try to identify and correct errors, some may be present. Please do not hesitate to contact the practitioner for clarification. Total time spent was 30 minutes with >50% on coordination of care and patient education. 10/22/2024 Obesity (BMI 30-39.9) (ICD-10 - E66.9) Paulino is a 44-year-old male with a PMH of HTN that presents for weight management follow-up. Patient established care in November at which time his weight was 249. Reviewed [facility] holistic and medical approach to weight loss with emphasis on lifestyle modification. 10/22/24: Weight: 227, BMI: 31.6. Seca reviewed, [...] reviewed. Dictation completed with the use of [employer] voice recognition software, prone to medical misidentifications [...] reviewed. Dictation completed with the use of [employer] voice recognition software, prone to medical misidentifications and grammatical errors. All errors are unintentional. Although the practitioner does try to identify and correct errors, some may be present. Please do not hesitate to contact the practitioner for clarification. Total time spent was 30 minutes with >50% on coordination of care and patient education. 10/22/2024 Elevated lipids (ICD-10 - E78.5) Paulino is a 44-year-old male with a PMH of HTN that presents for weight management follow-up. Patient established care in November at which time his weight was 249. Reviewed [facility] holistic and medical approach to weight loss with emphasis on lifestyle modification. 10/22/24: Weight: 227, BMI: 31.6. Seca reviewed, [...] reviewed. Dictation completed with the use of [employer] voice recognition software, prone to medical misidentifications [...] reviewed. Dictation completed with the use of [employer] voice recognition software, prone to medical misidentifications and grammatical errors. All errors are unintentional. Although the practitioner does try to identify and correct errors, some may be present. Please do not hesitate to contact the practitioner for clarification. Total time spent was 30 minutes with >50% on coordination of care and patient education. 10/22/2024 Dietary counseling and surveillance (ICD-10 - Z71.3) Paulino is a 44-year-old male with a PMH of HTN that presents for weight management follow-up. Patient established care in November at which time his weight was 249. Reviewed [facility] holistic and medical approach to weight loss with emphasis on lifestyle modification. 10/22/24: Weight: 227, BMI: 31.6. Seca reviewed, [...] reviewed. Dictation completed with the use of [employer] voice recognition software, prone to medical misidentifications [...] reviewed. Dictation completed with the use of [employer] voice recognition software, prone to medical misidentifications [...] reviewed. Dictation completed with the use of [employer] voice recognition software, prone to medical misidentifications and grammatical errors. All errors are unintentional. Although the practitioner does try to identify and correct errors, some may be present. Please do not hesitate to contact the practitioner for clarification. Total time spent was 30 minutes with >50% on coordination of care and patient education. 07/16/2024 Elevated lipids (ICD-10 - E78.5) Paulino is a 43-year-old male with a PMH of HTN that presents for weight management follow-up. Patient establish care in November at which time his weight was 249. Reviewed [facility] holistic and medical approach to weight loss with emphasis on lifestyle modification. 07/16/2024: Weight: 234, BMI: 32.6. SECA reviewed, [...] reviewed. Dictation completed with the use of [employer] voice recognition software, prone to medical misidentifications and grammatical errors. All errors are unintentional. Although the practitioner does try to identify and correct errors, some may be present. Please do not hesitate to contact the practitioner for clarification. Total time spent was 30 minutes with >50% on coordination of care and patient education. PLAN OF TREATMENT Pending Test Test Name Order Date LIPID PANEL, STANDARD 11/30/2023 COMPREHENSIVE METABOLIC PANEL 11/30/2023 CBC (INCLUDES DIFF/PLT) 11/30/2023 URINALYSIS, COMPLETE 11/30/2023 Next Appt Details Provider Name:ALCIDES CIARRA Brownlee, 12/31/2024 01:30:00 PM, [address] [place] [id number], [place], [address], Insurance Providers Payer Name Payer Address Payer Phone Subscriber Number Group Number Insured Name Patient Relationship to Insured Coverage Start Date Coverage End Date [facility] [address] [place] [address] [id number] Paulino Longoria Self - patient is the insured 3 MEDICATIONS ADMINISTERED Medication Instructions Date of Administration Dosage Notes Semaglutide 11/30/2023 0.25 mg Semaglutide 12/07/2023 0.25 mg Semaglutide 12/14/2023 0.25 mg Semaglutide 01/30/2024 0.25 mg LRQ SQ Semaglutide 02/06/2024 0.25 mg Semaglutide 02/13/2024 0.25 mg Semaglutide 02/20/2024 .25 mg Semaglutide 02/26/2024 .5 mg Semaglutide 03/05/2024 0.5 mg LLQ SQ Semaglutide 03/13/2024 .5 mg Semaglutide 03/19/2024 0.5 mg Semaglutide 03/26/2024 1 mg Semaglutide 04/02/2024 1 mg Semaglutide 04/16/2024 1.0 mg LLQ SQ Semaglutide 04/30/2024 1 mg MEDICAL (GENERAL) HISTORY Medical History History ICD Code Essential (primary) hypertension I10 Elevated cholesterol E78.00
== END 2024-12-02 10:07 | disposition home or self-care (01) ==
LOC: HO.HBS 09:43
PROVIDERS: PCP Internal Medicine; Visit Provider Physician Assistant Surgical
DX: E66.9 Obesity, unspecified (principal); Z98.84 Bariatric surgery status
CPT/HCPCS: 99214

== ENCOUNTER → 2024-12-02 09:43 | Outpatient (BNVA) | payer OTHER, SELFPAY | PROVIDERS: PCP Internal Medicine; Visit Provider Physician Assistant Surgical ==